=== PATIENT | male | born 1960 | race Caucasian/White ===

== ENCOUNTER 2024-07-12 12:30 | Outpatient (CLI) | payer OTHER, SELFPAY ==
--- NOTE | ~2024-07-12 | XR_ITS ---
EXAMINATION: XR shoulder RT min 2V DATE: 07/12/2024 13:08 INDICATION: Right shoulder pain. Neck pain. TECHNIQUE: 4 views of right shoulder were obtained. COMPARISON: None. FINDINGS: Alignment is normal. No fracture. Glenohumeral joint is normal. There is mild acromioclavic ular joint osteoarthritis. IMPRESSION: 1. Mild right acromioclavicular joint osteoarthritis. Reviewed, dictated and finalized at location []
--- NOTE | ~2024-07-12 | XR_ITS ---
EXAMINATION: XR cervical spine min 6V DATE: 07/12/2024 13:08 INDICATION: Neck pain. Right shoulder pain. TECHNIQUE: Six views of cervical spine were obtained. COMPARISON: Cervical spine radiographs 09/01/2013 abdomen MRI 02/13/16 FINDINGS: There is 11 degrees levoscoliosis of cervical spine. There are changes of anterior fusion p rocedure from C3 to C6 with anterior plate and screws. At C3, the screws are broken. There is moderat nicole decreased disc height at C3-C4, C6-C7, and C7-T1. There is multilevel [id number] facet join t osteoarthritis. On the right, there is moderate neural foraminal stenosis at C3-C4. There is mild c entral canal stenosis at C3-C4 and C5-C6. No prevertebral soft tissue swelling. IMPRESSION: 1. Moderate cervical spondylosis. 2. Anterior fusion procedure from C3 to C6 with broken C3 screws. 3. Cervical levoscoliosis. Reviewed, dictated and finalized at location []
--- OUTSIDE RECORDS SUMMARY | 2024-07-12 14:26 | XMS_ITS | Clinical Summary ---
Author Organization [facility] Address [address] [place] [address] Care Team Providers Care Pets Salesperson Name Role Phone Judd Lazaro MD Primary Care Provider [phone] Social History Tobacco Use Types Packs/Day Years Used Date Smoking Tobacco: Never Assessed Personal Safety Answer Date Recorded Getting School Help Needed Not on file 09/22 Sex and Gender Information Value Date Recorded Sex Assigned at Not on file Legal Sex Male 6:24 PM CORRAL BOSS Gender Identity Not on file Sexual Orientation Not on file Last Filed Vital Signs Vital Sign Reading Time Taken Comments Blood Pressure 117/87 07/01/2017 9:46 AM CDT Pulse 68 07/01/2017 9:46 AM CDT Temperature 36.3 C (97.3 F) 07/01/2017 9:46 AM CDT Respiratory Rate - - Oxygen Saturation 98% 07/01/2017 9:46 AM CDT Inhaled Oxygen Concentration - - Weight 77.1 kg (170 lb) 07/01/2017 9:46 AM CDT Height 180.3 cm (5' 11 ) 07/01/2017 9:46 AM CDT Body Mass Index 23.71 07/01/2017 9:46 AM CDT Plan of Treatment Health Maintenance Due Date Last Done Comments Colon Cancer Screening-Colonoscopy 1960 Depression Screening 1960 Hepatitis C Screening 1960 Prostate Cancer Screening-PSA 1961 Hepatitis B Screening 10/14/1979 Regular Well Visit/Exam 18-64 10/14/1979 Zoster Vaccine (1 of 2) 10/14/2011 DTaP/Tdap/Td Vaccine (2 - Td or Tdap) 10/01/2023 09/30/2013 Covid-19 Vaccine ( season) 2023 10/27/2020, 10/06/2020 Influenza Vaccine (#1) 2023 , 02/06/2020, 01/20/2019, Additional history exists Pneumococcal vaccine <65 Aged Out 12/03/2014 No longer eligible based on patient's age to complete this topic Insurance Care Teams Pets Salesperson Relationship Specialty Start Date End Date Judd Lazaro MD [address] [place] [address] PCP - General Internal Medicine 09/23/23
--- OUTSIDE RECORDS SUMMARY | 2024-07-12 14:26 | XMS_ITS | Clinical Summary ---
Author Organization [facility] Address [address] [place] [address] Care Team Providers Care Upper Marker Name Role Phone Mari Lazaro MD Primary Care Provider [phone] Source Comments [facility],non-owned Affiliates and Associated Physician Practices is amultiple site organization consisting of ambulatory clinics and hospital sitesin [place], [place], [place] and [place]. This disclosure is being madepursuant to the Care Everywhere program and may not contain all information available regarding this patient. Last updated 18.[facility] Allergies Active Allergy Reactions Criticality Noted Date Comments Diphenhydramine Urticaria Medium 07/23/2017 Contrast-Iodinated Agents Fo r Ct/Other Rash Medium Unverified allergy, mild, hives; Iodine allergy causes hives-CRISTINA CASTILLO Valproic Acid Urticaria Medium 02/16/2019 Povidone Iodine Urticaria Medium 04/21/2016 Medications * Be aware that medications may not be up to date on this document. Alwaysverify current medications with the patient. Medication Sig Dispensed Refills Start Date End Date Status acetaminophen (TYLENOL) 325 MG tablet Take 2 tablets by mouth every 4 hours as needed Maximum allowable Acetaminophen amount = 4 Grams (4000 mg) / 24 hours. 09/20/2018 Active omeprazole (PRILOSEC) 40 MG capsuleIndicatio ns:Gastroesophag eal Reflux Disease Take 1 capsule by mouth once daily Reasons: Gastroesophageal Reflux Disease 30 capsule 09/20/2018 Active latanoprost (XALATAN) 0.005 % ophthalmic solution INSTILL 1 GTT INTO OS QHS 11 09/23/2018 Active tamsulosin (Flomax) 0.4 MG capsule Take 1 (one) capsule by mouth once daily At the same time every day after a meal. 90 capsule 4 10/08/2022 Active cloNIDine (Catapres) 0.1 MG tabletIndication s:Tardive dystonia Take 1 (one) tablet by mouth 3 times daily 90 tablet 11 08/31/2023 Active propranolol ER 24hr (Inderal LA) 80 MG capsuleIndicatio ns:Tremor TAKE 1 CAPSULE BY MOUTH EVERY DAY 30 capsule 11 09/07/2023 Active amitriptyline (Elavil) 25 MG tabletIndication s:Insomnia Take 1 (one) tablet by mouth at bedtime Reasons: Trouble Sleeping 90 tablet 4 06/09/2024 Active buPROPion XL 24hr (Wellbutrin-XL) 300 MG tabletIndication s:Bipolar 1 disorder (HCC) TAKE 1 TABLET BY MOUTH EVERY DAY FOR ADHD OR MAJOR DEPRESSION 30 tablet 5 06/09/2024 Active OLANZapine (ZyPREXA) 2.5 MG tabletIndication s:Manic Phase of Bipolar Mood Disorder Take 1 (one) tablet by mouth once daily Reasons: Manic Phase of Manic-Depression 30 tablet 2 06/09/2024 Active clonazePAM (KlonoPIN) 0.5 MG tabletIndication s:Anxiety Take 1 (one) tablet by mouth 2 times daily as needed for Anxiety (please take 1 tablet as needed twice a day for anxiety.) Reasons: Feeling Anxious 60 tablet 3 06/17/2024 Active Active Problems Problem Noted Date Diagnosed Date Device, implant, or graft complication 9 Foreign body in colon 08/19/2018 Bipolar affective disorder, currently depressed, moderate 01/13/2018 Generalized anxiety disorder 11/09/2017 S/P cervical spinal fusion 10/28/2017 Esophagitis 07/24/2017 Overview (07/24/2017): Esophageal tear Chronic low back pain with sciatica 03/25/2017 Cervical spine ankylosis Dysphagia Resolved Problems Problem Noted Date Diagnosed Date Resolved Date Suicidal ideation 09/16/2018 09/22/2018 Dystonia 05/19/2018 01/03/2019 Alcohol abuse 11/09/2017 03/03/2018 Tardive dyskinesia 11/09/2017 8 Episode of recurrent major d epressive disorder 11/09/2017 01/13/2018 Cocaine use disorder, severe , in early remission 11/09/2017 06/02/2018 Chronic back pain 09/03/2017 11/09/2017 Overview (09/03/2017): Overview: DDD Neck pain 07/24/2017 11/09/2017 Esophageal tear, initial encounter 07/17/2017 10/28/2017 Stenosis of cervical spine with myelopathy 04/08/2017 10/28/2017 Pain in shoulder region, left 03/25/2017 11/09/2017 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 (F LUZONE; FLULAVAL; FLUARIX; AFLURIA QUADRIVALENT; 6MO+), 0.5 ML (IIV4) 02/06/2020,01/20/2019,01/26/2018 Family History Medical History Relation Name Comments Diabetes - Type 1 Brother 1 Hypertension Brother 1 CAD (Coronary Artery Disease) Brother 2 Julio Cancer - Other Father Liver Cirrhosis Father Diabetes - Type 2 Father Diabetes - Type 2 Mother Hypertension Mother Diabetes - Type 1 Sister 1 Relation Name Status Comments Brother 1 Brother 2 Julio Alive Father Mother Alive Sister 1 Sister 2 Livia Alive Social History Tobacco Use Types Packs/Day Years Used Date Smoking Tobacco: Never Smokeless Tobacco: Never Tobacco Cessation:Counseling Given: Not Answered Alcohol Use Standard Drinks/Week Comments Not Currently 4 (1 standard drink = 0.6 oz pure alcohol) quit 2016 ETOH abuse/heavy use beer whiskey, I had three drinks last night PHQ-2 Answer Date Recorded Patient Health Questionnaire-2 Score 0 06/09/2024 Sex and Gender Information Value Date Recorded Sex Assigned at Not on file Gender Identity Not on file Sexual Orientation Not on file Last Filed Vital Signs Vital Sign Reading Time Taken Comments Blood Pressure 94/66 06/09/2024 11:08 AM PRODUCTION CONTROL PLANNER Pulse 83 06/09/2024 11:08 AM PRODUCTION CONTROL PLANNER Temperature 36.3 C (97.3 F) 08/10/2023 1:27 PM CDT Respiratory Rate 20 05/16/2022 10:49 AM PRODUCTION CONTROL PLANNER Oxygen Saturation 99% 06/09/2024 11:08 AM PRODUCTION CONTROL PLANNER Inhaled Oxygen Concentration - - Weight 69.2 kg (152 lb 8 oz) 06/09/2024 11:08 AM PRODUCTION CONTROL PLANNER Height 180.3 cm (5' 11 ) 06/09/2024 11:08 AM PRODUCTION CONTROL PLANNER Body Mass Index 21.27 06/09/2024 11:08 AM PRODUCTION CONTROL PLANNER Plan of Treatment Health Maintenance Due Date Last Done Comments COLOGUARD (AGES 45-75) - COL ON CA SCREENING 1961 CT COLONOGRAPHY - COLON CA SCREENING 1961 FIT - COLON CA SCREENING 1961 FLEX SIG - COLON CA SCREENING 1961 HIV SCREENING 1976 DTAP/TDAP/TD VACCINES (1 - Tdap) 1980 PNEUMOCOCCAL VACCINE 50+ (1 of 1 - PCV) 10/14/2011 ZOSTER VACCINE (1 of 2) 10/14/2011 LIPID TESTING 09/19/2023 09/18/2018 COVID-19 VACCINE (1 - 2023-2 5 season) 2023 INFLUENZA VACCINE (#1) 2023 , 01/20/2019, 01/26/2018 COLON MONITORING 02/23/2029 02/23/2019, 02/23/2019 COLONOSCOPY - COLON CA SCREENING 02/23/2029 02/23/2019, 02/23/2019 Colorectal Cancer Screening 02/23/2029 Respiratory Syncytial Virus (RSV) Vaccine Pt: or over 60 yrs (1 - 1-dose 75+ series) 2036 HEPATITIS C SCREENING Completed 01/20/2019 , 01/20/2019 HEPATITIS B VACCINE Aged Out No longe r eligible based on patient's age to complete this topic HIB VACCINE Aged Out No longer eligi ble based on patient's age to complete this topic HPV VACCINE Aged Out No longer eligi ble based on patient's age to complete this topic MENINGOCOCCAL (Group B) VACCINE SHARED DECISION-MAKING Aged Out No longer eligible based on patient's age to complete this topic MENINGOCOCCAL GROUPS A/C/Y/W VACCINE Aged Out No longer eligible b ased on patient's age to complete this topic Goals Goal Patient Goal Type Associated Problems Recent Progress Patient-Stated? Author Medication Management General On track( 019 2:27 PM CDT) Elvira Lopez, RN Note: Expected end date: ongoing Interventions: Take all medications as prescribed Let your doctor know right away about any changes in your medications Make sure to request a refill of your medication at least one week prior to your last dose Medical Devices Implanted Type Area Gis Coordinator Device Identifier Shelf Expiration Date Model / Serial / Lot Tiss Kaur Srvc Fee 6.0 X 14mm X 11mm - [id number] Implanted:Qty: 1 on 10/08/2017 by Piotr Perez MD at [facility] N/A: Spine Cervical [employer] 05/18/2020 [id number] / [id number] / [id number] Tiss Kaur Srvc Fee 7.0 X 14mm X 11mm Implanted:Qty: 1 on 10/08/2017 by Piotr Perez MD at [facility] N/A: Spine Cervical [employer] [id number] / / Plate 57.5 Implanted:Qty: 1 on 10/08/2017 by Piotr Perez MD at [facility] N/A: Spine Cervical [employer] [id number] / / Screw 4mm 14mm Spne Crv Ant Va Slf Drl Implanted:Qty: 2 on 10/08/2017 by Piotr Perez MD at [facility] N/A: Spine Cervical [employer] [id number] / / Screw 4mm 16mm Spne Crv Ant Va Slf Drl Implanted:Qty: 6 on 10/08/2017 by Piotr Perez MD at [facility] N/A: Spine Cervical [employer] [id number] / / Procedures Procedure Name Priority Date/Time Associated Diagnosis Comments ENDOSCOPY, COLON, SCREENING Routine 02/23/2019 1:12 PM PRODUCTION CONTROL PLANNER HEPATITIS C ANTIBODY Routine 01/20/2019 4:15 PM CDT Encounter for immunization LIPID PROFILE Routine 09/18/2018 6:04 AM CDT from Last 3 Months or Most Recently Relevant to Health Maintenance Results * ENDOSCOPY, COLON, SCREENING (02/23/2019 1:12 PM PRODUCTION CONTROL PLANNER) Report Endoscopy POC Endoscopy Department Report __ _ Patient Name: Gustabo Bradley Procedure Date: 02/23/2019 1:12 PM Date of : 1960 Classification: Outpatient Gender: Male Ethnicity: Not or Race: White __ _ Providers: Selene Gudino MD, Deo Villatoro (Fellow) Referring MD: Rebeka Guzman (Referring MD) Procedure: Upper GI endoscopy Indications: Dysphagia Medications: Monitored Anesthesia Care Description of Procedure: Pre-Anesthesia Assessment: - Prior to the procedure, a History and Physical was performed, and patient medications and allergies were reviewed. The patient is competent. The risks and benefits of the procedure and the sedation options and risks were discussed with the patient. All questions were answered and informed consent was obtained. Patient identification and proposed procedure were verified by the physician and the nurse in the endoscopy suite. Mental Status Examination: alert and oriented. Airway Examination: normal oropharyngeal airway and neck mobility. Respiratory Examination: clear to auscultation. CV Examination: normal. Prophylactic Antibiotics: The patient does not require prophylactic antibiotics. Prior Anticoagulants: The patient has taken no previous anticoagulant or antiplatelet agents. ASA Grade Assessment: III - A patient with severe systemic disease. After reviewing the risks and benefits, the patient was deemed in satisfactory condition to undergo the procedure. The anesthesia plan was to use monitored anesthesia care (MAC). Immediately prior to administration of medications, the patient was re-assessed for adequacy to receive sedatives. The heart rate, respiratory rate, oxygen saturations, blood pressure, adequacy of pulmonary ventilation, and response to care were monitored throughout the procedure. The physical status of the patient was re-assessed after the procedure. After obtaining informed consent, the endoscope was passed under direct vision. Throughout the procedure, the patient's blood pressure, pulse, and oxygen saturations were monitored continuously. The [id number] was introduced through the mouth, and advanced to the third part of duodenum. The upper GI endoscopy was accomplished without difficulty. The patient tolerated the procedure well. Findings: Esophagogastric landmarks were identified: the Z-line was found at 35 cm, the gastroesophageal junction was found at 38 cm and the site of hiatal narrowing was found at 38 cm from the incisors. 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 The three tongues with maximum longitudinal extent of these mucosal changes was 3 cm in length. The entire examined stomach, cardia (on retroflexion) and gastric fundus (on retroflexion) were normal. The examined duodenum was normal. Estimated Blood Loss: Estimated blood loss: none. Complications: No immediate complications. Impression: 1) No focal strictures or stenosis found. Endoscope passed easily through upper esophageal sphincter. 2) Endoscope easily transversed entire esophagus, including in intubation of EUS and passing LES into stomach. 3) Esophageal mucosal changes secondary to established short-segment Powell's disease. 4) Normal duodenum, stomach, cardia and gastric fundus. 5) No specimens collected. No dilation performed. Recommendation: - Patient has a contact number available for emergencies. The signs and symptoms of potential delayed complications were discussed with the patient. Return to normal activities tomorrow. Written discharge instructions were provided to the patient. - Resume previous diet. - Continue present medications. - Return to GI clinic as previously scheduled. - Encouraged patient to complete order barium swallow Attending Participation: I was present and participated during the entire procedure, including non-shah portions. Procedure Code(s): --- Professional --- 52644, Esophagogastroduode noscopy, flexible, transoral; diagnostic, including collection of specimen(s) by brushing or washing, when performed (separate procedure) Diagnosis Code(s): --- Professional --- K22.70, Powell's esophagus without dysplasia R13.10, Dysphagia, unspecified CPT copyright 2016 [employer]. All rights reserved. The codes documented in this report are preliminary and upon aquatics director review may be revised to meet current compliance requirements. ____ Selene Gudino MD 02/23/2019 2:35:00 PM Note Initiated On: 02/23/2019 1:12 PM Number of Addenda: [address] 02/23/2019 1:12 PM PRODUCTION CONTROL PLANNER Selene Gudino MD GI PROCEDURE [facility] CASTELLANOS Performing Organization Address [facility] Co de Phone Number [facility] * HEPATITIS C ANTIBODY (01/20/2019 4:15 PM CDT) [facility] Hepatitis C Antibody Non-react leo Non-reac tive 01/20/2019 6:58 PM CDT [facility] Comment: Hepatitis C Antibody screen indicates no serologic evidence of past or current infection with Hepatitis C Virus. Patients with unexplained liver disease who are immunocompromised or suspected of having acute Hepatitis C infection may benefit from Nucleic Acid Test (AVA) for Hepatitis C Viral RNA to confirm Hepatitis C status. Blood BLOOD SPECIMEN / Unknown Lab Venipuncture / Unknown 01/20/2019 4:15 PM CDT 01/20/2019 4:29 PM CDT Spike Etienne MD LAB - CHEMISTRY [facility] CASTELLANOS Performing Organization Address City/[facility]/ZIP Co de Phone Number [address] [phone] * (ABNORMAL) LIPID PROFILE (09/18/2018 6:04 AM CDT) [facility] Cholesterol Total 180 <200 mg/dL 09/18/2018 8:29 AM CDT [facility] HDL 51 >40 mg/dL 09/18/2018 8:29 AM [facility] Comment: ATP III Classification of HDL Cholesterol: <40 mg/dL: Considered a major risk factor. >60 mg/dL: Considered a negative risk factor. LDL Calculated 110(H) <100 mg/dL 09/18/2018 8:29 AM [facility] Comment: ATP III Classification of LDL Cholesterol: <100 mg/dL: Optimal 100 - 129 mg/dL: Near Optimal/Above Optimal 130 - 159 mg/dL: Borderline High 160 - 189 mg/dL: High >190 mg/dL: Very High Triglycerides 94 <150 mg/dL 09/18/2018 8:29 AM [facility] Comment: ATP III Classification of Triglycerides: <150 mg/dL: Normal 150 - 199 mg/dL: Borderline High 200 - 400 mg/dL: High >500 mg/dL: Very High Blood BLOOD SPECIMEN / Unknown Venipuncture / Unknown 09/18/2018 6:04 AM CDT 09/18/2018 6:14 AM CDT Magali Grace MD LAB - CHEMISTRY ORDERABLES [facility] [address] [phone] from Last 3 Months or Most Recently Relevant to Health Maintenance Advance Directives Documents on File Type Date Recorded Patient Film Reproducer Expl anation Adv Directive/Living Will/POA 08/18/2017 2:52 PM * Full Code (Latest Code Status on File) Date Activated Date Inactivated Comments 09/16/2018 8:30 PM 09/20/2018 2:49 PM * Full Code Date Activated Date Inactivated Comments 10/08/2017 2:30 PM 10/20/2017 8:07 PM * Full Code Date Activated Date Inactivated Comments 07/24/2017 9:46 AM 07/28/2017 4:37 PM Care Teams Upper Marker Relationship Specialty Start Date End Date Mari Lzaaro MD [address] [place], [place] [id number] PCP - General Internal Medicine 10/20/23
--- OUTSIDE RECORDS SUMMARY | 2024-07-12 14:26 | XMS_ITS | Encounter Summary ---
Author Organization [facility] Address [address] [place] [address] Care Team Providers Care Sheetmetal Worker Name Role Phone Aye Angeles Unavailable Unavailable Umberto Nguyen MD Primary Care Provider [phone] Juanjo Dowell MD Primary Care Provider Umberto Nguyen MD Primary Care Provider [phone] Spike Etienne MD Unavailable [phone] Niyah Bush MD Primary Care Provider Umberto Nguyen MD Primary Care Provider [phone] Spike Etienne MD Primary Care Provider [phone] Spike Etienne MD Primary Care Provider [phone] Spike Etienne MD Primary Care Provider [phone] Tiffany Dennis DO Primary Care Provider [phone] Bailee DUGGAN MD, Fred R Primary Care Provider + Tiffany Dennis DO Primary Care Provider Spike Etienne MD Primary Care Provider [phone] Umberto Nguyen MD Primary Care Provider [phone] aMri Lazaro MD Primary Care Provider [phone] Encounter Details Date Type Department Care Team (Late st Contact Info) Description 08/31/2018 Lab Requisition [facility] [address] [place] [address] Sabrina Scott MD [address] [place] [address] Social History Tobacco Use Types Packs/Day Years Used Date Smoking Tobacco: Never Smokeless Tobacco: Never Alcohol Use Standard Drinks/Week Comments No 0 (1 standard drink = 0.6 oz pure alcohol) quit 2017 ETOH abuse/heavy use beer whiskey Sex and Gender Information Value Date Recorded Sex Assigned at Not on file Gender Identity Not on file Sexual Orientation Not on file documented as of this encounter Functional Status Functional Status Response Date of Assess ment Is person deaf or have serious hearing difficult y? No 10/09/2017 Is person blind or have serious difficulty seein g? Yes 10/09/2017 Does person have serious dif ficulty walking/climbing stairs? No 10/09/2017 Does person have difficulty dressing/bathing? No 10/09/2017 Does person have difficulty doing errands alone? No 10/09/2017 Cognitive Status Response Date of Assessm ent Does person have difficulty concentrating/remembering/making decisions? Yes 10/09/2017 documented as of this encounter Plan of Treatment Not on file documented as of this encounter Goals Goal Patient Goal Type Associated Problems [...] one week prior to your last dose documented as of this encounter Procedures Procedure Name Priority Date/Time Associated Diagnosis Comments SLIDE PREP HISTOLOGY Routine 08/26/2018 2:06 PM CDT documented in this encounter Results * SLIDE PREP HISTOLOGY (08/26/2018 2:06 PM CDT) Client Specimen ID # [id number] 09/07/2018 5:33 PM CDT [facility] Number of Blocks Received 0 09/07/2018 5:33 PM CDT [facility] Number of Slides 2 09/07/2018 5:33 PM CDT [facility] Number of Control Slides 1 09/07/2018 5:33 PM CDT [facility] Pathology/Cytolo gy ESOPHAGEAL BIOPSY SPECIMEN / Unknown 08/26/2018 2:06 PM CDT 08/31/2018 11:43 AM CDT Sabrina Scott MD LAB - PATHOLOGY/CYTO LOGY ORDERABLES Performing Organization Address City/State/[facility] Co de Phone Number [facility] [address] [id number] [phone] documented in this encounter Visit Diagnoses Not on filedocumented in this encounter Care Teams Sheetmetal Worker Relationship Specialty Start Date End Date Umberto Nguyen MD PCP - General 05/19/18 08/31/18 Juanjo Dowell MD [address] [place] [address] PCP - General Internal Medicine 09/01/18 09/02/18 Umberto Nguyen MD PCP - General 09/03/18 01/20/19 Niyah Bush MD [address] [place] [address] PCP - General Internal Medicine 01/22/19 01/22/19 Umberto Nguyen MD PCP - General 01/23/19 02/10/19 Spike Etienne MD [address] [place] [address] PCP - General 02/11/19 02/22/19 Spike Etienne MD [address] [place] [address] PCP - General 03/21/19 06/28/19 Spike Etienne MD [address] [place] [address] PCP - General 06/29/19 10/24/19 Tiffany Dennis DO [address] [place] [address] PCP - General 10/25/19 10/31/19 Celestino Morocho III, MD [address] [place] [address] PCP - General Internal Medicine 11/01/19 11/09/19 Tiffany Dennis DO [address] [place] [address] PCP - General 11/10/19 12/01/19 Spike Etienne MD [address] [place] [address] PCP - General 01/17/21 09/22/22 Umberto Nguyen MD [address] [place] [address] [place] [address] PCP - General Family Medicine 09/23/22 10/19/23 Mari Lazaro MD [address] [place] [id number] PCP - General Internal Medicine 10/20/23 Aye Angeles Media Analytics Manager Psychiatry 11/05/17 09/21/18 Spike Etienne MD [address] [place] [address] Resident - PCP General Medicine 01/21/19 01/08/21 documented as of this encounter
--- OUTSIDE RECORDS SUMMARY | 2024-07-12 14:26 | XMS_ITS ---
Author Organization [facility] Address [address] [facility] [address] [place] [address] Care Team Providers Care Needle Punch Machine Operator Name Role Phone Judd Lazaro Primary Care Provider [phone] Encounters Encounter Location Date Provider Diagnosis [facility] [address] [facility] [address] [place] [address] 06/28/2024 Judd Lazaro Plan Of Treatment Next Appt Details Provider Name:Judd mann, 07/21/2024 01:30:00 PM, [address] [facility], [address], [place], [address], Progress Notes * Gustabo RIVERADOB:1960 (63 yo M)Acc No.[id number]:06/28/2024 Progress Notes Patient: Gustabo CHRISTINE Provider: Umang Lazaro M.D. :1960 A ge:63 Y S ex:Male Date:06/28/2024 Address:[address] [place], [place] [id number] Subjective: * Chief Complaints: * * Medical History: Objective: * Vitals: Assessment: Plan: * Treatment: * * Electronic signature of Minerva Lazaro MD on 07/12/2024 at 03:26 PM EDT Sign off status: Pending * Provider: Umang Lazaro M.D. Date: 0 06/28/2024 Generated for Eleni king/Fadane/eTransmitting on: 0 07/12/2024 03:26 PM EDT
--- OUTSIDE RECORDS SUMMARY | 2024-07-12 14:26 | XMS_ITS | Encounter Summary ---
Author Organization [facility] Address [address] [place] [address] Care Team Providers Care Farm Products Shipper Name Role Phone Leroy Caballero MD Primary Care Provider [phone] Encounter Details Date Type Department Care Team (Latest Contact Info) Description 01/12/[address] [facility] , Carl Awad MD Social History Tobacco Use Types Packs/Day Years Used Date Smoking Tobacco: Never Assessed Sex and Gender Information Value Date Recorded Sex Assigned at Not on file Legal Sex Male 12:14 AM CDT Gender Identity Not on file Sexual Orientation Not on file documented as of this encounter Plan of Treatment Not on file documented as of this encounter Visit Diagnoses Not on filedocumented in this encounter Care Teams Farm Products Shipper Relationship Specialty Start Date End Date Leryo Caballero MD [address] [place] [address] PCP - General 11/29/15 documented as of this encounter
--- OUTSIDE RECORDS SUMMARY | 2024-07-12 14:26 | XMS_ITS | Clinical Summary ---
Author Organization [facility] Address [address] [place] [address] Care Team Providers Care Cutting And Creasing Press Operator Name Role Phone Leroy Caballero MD Primary Care Provider [phone] Encounters Date Type Department Care Team Description 07/01/2024 Scan [facility] Scanned, [facility] from Last 3 Months Social History Tobacco Use Types Packs/Day Years Used Date Smoking Tobacco: Never Assessed Sex and Gender Information Value Date Recorded Sex Assigned at Not on file Legal Sex Male 12:14 AM CDT Gender Identity Not on file Sexual Orientation Not on file Last Filed Vital Signs Vital Sign Reading Time Taken Comments Blood Pressure 125/84 06/24/2017 12:31 PM FLAKER TENDER Pulse 72 06/24/2017 12:31 PM FLAKER TENDER Temperature - - Respiratory Rate - - Oxygen Saturation - - Inhaled Oxygen Concentration - - Weight 80.3 kg (177 lb) 06/24/2017 12:31 PM FLAKER TENDER Height 181.6 cm (5' 11.5 ) 06/24/2017 12:[address] Body Mass Index 24.34 06/24/2017 12:31 PM FLAKER TENDER Plan of Treatment Health Maintenance Due Date Last Done Comments Colorectal Cancer Screening Colonoscopy (10 Years) 1960 Annual Physical 1964 Hepatitis C 10/14/1979 DTaP, Tdap and Td Vaccines ( 1 - Tdap) 1980 Zoster Vaccines (1 of 2) 10/14/2011 COVID-19 Vaccine ( - 2023-2 5 season) 2023 Influenza Adult (#1) 2024 RSV Immunization or 60+ Years (1 - 1-dose 75+ series) 2036 Meningococcal B Vaccine Aged Out No l onger eligible based on patient's age to complete this topic Meningococcal Vaccine Aged Out No jhonny stephani eligible based on patient's age to complete this topic Pneumococcal Vaccine: Pediat rics (0 to 5 Years) and At-Risk Patients (6 to 64 Years) Aged Out No longer eligible b ased on patient's age to complete this topic RSV Immunizations Under 20 Months Aged Out No longer eligible based on patient's age to complete this topic Care Teams Cutting And Creasing Press Operator Relationship Specialty Start Date End Date Leroy Caballero MD [address] [place] [address] PCP - General 11/29/15
--- OUTSIDE RECORDS SUMMARY | 2024-07-12 14:26 | XMS_ITS ---
Author Organization [facility] Address [address] [address] Care Team Providers Care Art Museum Aide Name Role Phone Judd Lazaro Primary Care Provider Medications Medication SIG (Take, Route, Frequency, Duration) Notes Start Date End Date Status HYDROcodone-Acetaminophen 5-325 MG 1 tablet Orally every 8 hrs for 14 days As needed 07/07/2024 Active Encounters Encounter Location Date Provider Diagnosis [facility] [address] [facility] [address] [place] [address] 07/07/2024 Judd Lazaro Plan Of Treatment Medication Medication Name Sig Start Date Stop Date Notes HYDROcodone-Acetaminophen 5- 325 MG 1 tablet Orally every 8 hrs for 14 days 07/07/2024 Next Appt Details Provider Name:Judd mann, 07/21/2024 01:30:00 PM, [address] [facility] [address], [place], [address], Progress Notes * Gustabo RIVERADOB:1960 (63 yo M)Acc No.[id number]:07/07/2024 Patient: Gustabo CHRISTINE :1960 A ge:63 Y S ex:Male Address:[address] [place] [address], [address] * Refills Refill HYDROcodone-Acetaminophen Tablet, 5-325 MG, Orally, 42 Tablet, 1 tablet, every 8 hrs, 14 days, Refills=0 * true * Date: Generated for Sarahi ng/Faxing/eTransmitting on: 0 07/12/2024 03:26 PM EDT
--- OUTSIDE RECORDS SUMMARY | 2024-07-12 14:26 | XMS_ITS | Continuity of Care Document ---
Author Organization [facility] Address [address] [facility] [place] [address] Phone Care Team Providers Care School Health Assistant Name Role Phone Umberto Nguyen MD Unavailable Unavailable Allergies, Adverse Reactions, Alerts Substance Reaction Status Criticality IODINE Active No Information Medications Medication Instructions Dosage Effective Dates (start - stop) Status Comments Depakote ER 500 mg tablet,extended release take 1 tablet by oral route every day 500 MG - Active clonidine HCl 0.1 mg tablet take 1 tablet by oral route 2 times every day 0.1 MG - Active propranolol 20 mg tablet take 1 tablet by oral route 2 times every day 20 MG - Active Klonopin 1 mg tablet take 1 tablet by or al route 2 times every day 1 MG - Active Procedures Procedure Date OFFICE/OUTPATIENT VISIT, EST PREV VISIT, EST, AGE 40-64 OFFICE/OUTPATIENT VISIT, EST OFFICE/OUTPATIENT VISIT, EST OFFICE/OUTPATIENT VISIT, EST OFFICE/OUTPATIENT VISIT, EST OFFICE/OUTPATIENT VISIT, EST PREV VISIT, EST, AGE 40-64 OFFICE/OUTPATIENT VISIT, EST OFFICE/OUTPATIENT VISIT, EST OFFICE/OUTPATIENT VISIT, EST OFFICE/OUTPATIENT VISIT, EST OFFICE/OUTPATIENT VISIT, EST OFFICE/OUTPATIENT VISIT, EST OFFICE/OUTPATIENT VISIT, EST OFFICE/OUTPATIENT VISIT, EST PREV VISIT, NEW, AGE 40-64 Advance Directives Directive Yes / No Effective Date File Name No Information Encounters Encounter Description Practice Location Reason(s) For Visit Diagnoses Date Provider Providers Copied on Encounter [facility], [address], [place], [place], [address], tel:[phone] [facility] No Information 9 Patrick Shipman. [address], [place], [place], [address] , [place]. tel:[phone] Referring Provider: Abbi Garcia [address], [place], [place], [address]. tel:[phone] OFFICE/OUTPA TIENT VISIT, EST [facility], [address], [place], [place], [address], [place] tel:[phone] [facility] hyponatrem ia1 (chief complaint) weight loss1 (chief complaint) back pain1 (chief complaint) BPH1 (chief complaint) HyponatremiaBPH w/ lower urinary tract symptomAbnormal weight lossChronic pain syndrome 9 Patrick Shipman. [address], [place], [place], [address] , [place]. tel:[phone] Referring Provider: Abbi Garcia [address], [place], [place], [address]. tel:[phone] [facility], [address], [place], [place], [address], [place] tel:[phone] [facility] No Information 9 Patrick Shipman. [address], [place], [place], [address] , [place]. tel:[phone] PREV VISIT, EST, AGE 40-64 [facility], [address], [place], [place], [address], [place] tel:[phone] [facility] physical (chief complaint) Encounter for general adult medical exam w abnormal findingsHyponatremi aHyperlipidemiaEsse ntial thrombocytosisTardi ve dyskinesiaBarrett's esophagus without dysplasiaAbnormal weight loss Fe- 9 Patrick Laird [address], [address], [place], [place], [address] , [place]. tel:[phone] Referring Provider: Abbi [address], [place], [place], [address]. tel:[phone] OFFICE/OUTPA TIENT VISIT, [facility], [address], [place], [place], [address], [place] tel:[phone] [facility] urine (chief complaint) urine1 (chief complaint) ear pain1 (chief complaint) insomnia1 (chief complaint) Otalgia, right earInsomniaBPH w/ lower urinary tract symptomAnemia 9 Patrick Laird [address], [address], [place], [place], [address] , [place]. tel:[phone] Referring Provider: Abbi Garcia [address], [place], [place], [address]. tel:[phone] OFFICE/OUTPA TIENT VISIT, [facility], [address], [place], [place], [address], [place] tel:[phone] [facility] insomani1 (chief complaint) chronic pain1 (chief complaint) barrett1 (chief complaint) tardive dyskinesia 1 (chief complaint) Townsend's esophagusGeneralize d anxiety disorderInsomniaAbn ormal weight lossChronic pain syndrome 8 Patrick Laird [address], [address], [place], [place], [address] , [place]. tel:[phone] Referring Provider: Abbi Garcia [address], [place], [place], [address]. tel:[phone] OFFICE/OUTPA TIENT VISIT, [facility], [address], [place], [place], [address], [place] tel:[phone] [facility] insomnia1 (chief complaint) GERD1 (chief complaint) Other insomniaBarrett's esophagus 5 Patrick Laird [address], [address], [place], [place], [address] , [place]. tel:[phone] Referring Provider: Umberto Nguyen, [address], [place], [place], [address]. tel:[phone] OFFICE/OUTPA TIENT VISIT, [facility], [address], [place], [place], [address], [place] tel:[phone] [facility] fatigue1 (chief complaint) GERD1 (chief complaint) Dietary surveillance and counselingFatigueOt her insomniaGERD with esophagitis 5 Patrick Shipman. [address], [address], [place], [place], [address] , [place]. [phone] Referring Provider: Abbi Garcia [address], [place], [place], [address]. tel:[phone] PREV VISIT, [facility], AGE 40-64 [facility], [address], [place], [place], [address], [place] tel:[phone] [facility] Physical (chief complaint) Dietary surveillance and counselingRoutine medical exam 5 Patrick Shipman. [address], [address], [place], [place], [address] , [place]. [phone] Referring Provider: Umberto Nguyen [address], [place], [place], [address]. tel:[phone] OFFICE/OUTPA TIENT VISIT, [facility], [address], [place], [place], [address], [place] tel:[phone] [facility] chronic pain (chief complaint) ADD (chief complaint) anxiety (chief complaint) GERD (chief complaint) CHRONIC PAIN NECGeneralized anxiety disorderAttention deficit disorder of childhood without mention of hyperactivityGERD 4 Patrick Shipman. [address], [address], [place], [place], [address] , [place]. tel:[phone] Referring Provider: Umberto Nguyen [address], [place], [place], [address]. tel:[phone] OFFICE/OUTPA TIENT VISIT, [facility], [address], [place], [place], [address], [place] tel:[phone] [facility] chronic pain (chief complaint) ADD (chief complaint) Anxiety (chief complaint) CHRONIC PAIN NECAttention deficit disorder of childhood without mention of hyperactivityGenera lized anxiety disorder 4 Patrick Shipman. [address], [place], [place], [address] , [place]. tel:[phone] Referring Provider: Umberto Nguyen, [address], [place], [place], [address]. tel:[phone] OFFICE/OUTPA TIENT VISIT, [facility], [address], [place], [place], [address], [place] tel:[phone] [facility] anxiety (chief complaint) ADD (chief complaint) chronic pain (chief complaint) CHRONIC PAIN NECGeneralized anxiety disorderAttention deficit disorder of childhood without mention of hyperactivityFamily Hx of Cardiovascular Disease 4 Patrick Shipman. [address], [place], [place], [address] , [place]. tel:[phone] Referring Provider: Abbi [address], [place], [place], [address]. tel:[phone] OFFICE/OUTPA TIENT VISIT, [facility], [address], [place], [place], [address], [place] tel:[phone] [facility] chornic pain (chief complaint) Anxiety (chief complaint) rash (chief complaint) Generalized anxiety disorderAttention deficit disorder of childhood without mention of hyperactivityLumbag oFamily Hx of Cardiovascular Disease 4 Patrick Shipman. [address], [place], [place], [address] , [place]. tel:[phone] Referring Provider: Abbi Garcia [address], [place], [place], [address]. tel:[phone] OFFICE/OUTPA TIENT VISIT, [facility], [address], [place], [place], [address], [place] tel:[phone] [facility] back pain (chief complaint) anxiety (chief complaint) ADD (chief complaint) CHRONIC PAIN NECAttention deficit disorder of childhood without mention of hyperactivityGenera lized anxiety disorder 4 Patrick Shipman. [address], [place], [place], [address] , [place]. tel:[phone] Referring Provider: Abbi Garcia [address], [place], [place], [address]. tel:[phone] OFFICE/OUTPA TIENT VISIT, [facility], [address], [place], [place], [address], [place] tel:[phone] [facility] chronic pain (chief complaint) anxiety (chief complaint) ADD (chief complaint) Attention deficit disorder of childhood without mention of hyperactivityCervic algiaLumbagoDepress ion 4 Patrick Shipman. [address], [place], [place], [address] , [place]. tel:[phone] Referring Provider: Abbi Garcia [address], [place], [place], [address]. tel:[phone] OFFICE/OUTPA TIENT VISIT, [facility], [address], [place], [place], [address], [place] tel:[phone] [facility] back pain (chief complaint) ADD (chief complaint) foot pain (chief complaint) Dietary surveillance and counselingLumbagoCe rvicalgiaAttention deficit disorder of childhood without mention of hyperactivityChroni c ulcer of unspecified site 4 Patrick Shipman. [address], [address], [place], [place], [address] , [place]. tel:[phone] Referring Provider: Abbi [address], [place], [place], [address]. tel:[phone] OFFICE/OUTPA TIENT VISIT, [facility], [address], [place], [place], [address], [place] tel:[phone] [facility] neck pain (chief complaint) vitamin D (chief complaint) finger injury (chief complaint) ADD (chief complaint) CHRONIC PAIN NECFINGER INJURY OP NOSUnspecified vitamin d deficiencyGeneraliz ed anxiety disorder 4 Patrick Shipman. [address], [address], [place], [place], [address] , [place]. tel:[phone] Referring Provider: Umberto Nguyen, [address], [place], [place], [address]. tel:[phone] PREV VISIT, NEW, AGE 40-64 [facility], [address], [place], [place], [address], [place] tel:[phone] [facility] Physical (chief complaint) Routine Medical ExamRoutine Medical Exam 4 Patirck Shipman. [address], [address], [place], [place], [address] , [place]. tel:[phone] Family History Family Member Type Diagnosis Age At Onset Mother Problem (finding) Diabetes mellitus Mother Problem (finding) Hypertension Father Problem (finding) Coronary artery disease Father Problem (finding) Cancer, liver Brother Problem (finding) Coronary artery disease Payers Payer name Insurance type Covered libertarian ID Authoriza tion(s) No Information Social History Type Description Quantity Date Captured Comments Alcohol Use Details Unknown Caffeine Use Details Unknown Tobacco Use Status No Information Smoking Status No Information Sex Male Chief Complaint And Reason For Visit No Information Plan Of Treatment Date Type Action Status Referral Ordered: CT ABDOMEN&PELVIS W/CONTRAST ordered Referral Ordered: [facility] : Surgery (related to BPH w/ lower urinary tract symptom) ordered Referral Ordered: Otolaryngology (related to Otalgia, right ear) ordered Referral Referred To: [facility] [address] [place], [place], [phone] Ordered: Referrals: Allopathic & Osteopathic Physicians : Surgery. [facility]. Evaluate and treat ordered Referral Ordered: Referrals: Otolaryngology. Evaluate and treat ordered Referral Ordered: Pulmonology (related to Fatigue) ordered Referral Ordered: Referrals: Pulmonology. Evaluate and treat ordered Referral Ordered: Pain Management (related to Cervicalgia) ordered Referral Ordered: Referral: Pain Management. ordered Referral Ordered: CARDIOVASCULAR STRESS TEST ordered Referral Referred To: Physical Therapy Ordered: Referral: Physical Therapy. ordered Referral Ordered: COLONOSCOPY AND BIOPSY ordered Referral Ordered: Neurosurgery (related to CHRONIC PAIN NEC) ordered Referral Ordered: Referral: Neurosurgery. ordered Referral Ordered: FINGER XRAY ordered Referral Ordered: MRI LUMBAR SPINE W/O DYE ordered History Of Present Illness Encounter Date Complaint History Of Prese nt Illness BPH1 Pt did have some urinary difficulty which resolved since stopping trileptal. Pt did see urology recently and he supposes to get green light TURP but he canceled the surgery and he does not want surgery anymore back pain1 Pt has chronic b ack and neck pain Pt was seeing [facility] and he was getting norco and [facility] told him they do not give out norco anymore. Pt wants me to give him norco. Pt denies any loss of bladder control weight loss1 Pt has hiatal he rnia and he lost good amount of weight. Pt had benign CT of chest, abdomen and pelvis. Pt denies any GERD Pt denies any appetite loss. hyponatremia1 Pt has hyponatre natty. which is due to trileptal. pt just seen his psychiatrist and trileptal was stopped and he was started on depakote instead. Pt denies any headache or mental status change physical Pt needs annual physical. Pt has tardive dyskinesia from history of anti psychotic use. . Pt is off above meds. Pt just had lab done which showed low D, low sodium, high platelet and mild HLP. Pt was told by psychiatrist not to take amitriptyline due to side effects so he stopped taking amitriptyline. Pt denies any headache or mental status change or seizure. Pt has chronic anxiety and bipolar .Pt takes trileptal and also klonopin PRn by psychiatrist. Pt also takes propranolol for tardive dyskinesia. Pt is off norco. urine Additional infor matrock: Pt states that he has history of anemia. Pt denies any dizziness.. urine1 Pt c/o difficult y with urination for 2 months. pt has to push really hard to go. Pt denies any dysuria, urgency. Pt states that he has to get up 2-3 times at night to urinate but he has difficulty initiating urination insomnia1 Pt has insomnia. Pt takes amitriptyline and doing well. Pt wants to try higher dose. ear pain1 Pt states that karen de la cruz has a hole in his right eardrum since he was teenager. Pt states that he notices some pain right ear. Pt denies any hearing loss. Pt states that he can notices air from right ear when he blows his nose Pt denies any drainage barrett1 Pt has history o f townsend esophagus Pt has not followed up with GI for long time. he has not been taking any omeprazole for long time. Pt denies any GERD or abdominal pain pt also has been taking mobic for neck pain chronic pain1 Pt has chronic n avi pain. Pt recently had neck surgery and he is taking norco daily for pain from his neurosurgeon. Pt denies any radiculopathy. he also takes mobic daily insomani1 Pt has chronic i nsomnia. Pt denies any snoring or any trouble with breathing at night. Pt used to take amitriptyline which worked well for him. He wants to get some refills. tardive dyskinesia1 Pt has tardi ve dyskinesia from history of anti psychotic medication. Pt is seeing psychiatrist now. Pt is off SSRIs also. pt is only taking klonopin PRn from psychiatrist. Pt denies any suicidal or homicidal thought. Pt denies any crying spells GERD1 doing ok with om erpzole. EGD soon. insomnia1 Pt has insomnia. Pt states that vistaril did not work Pt lies in bed for hours before falling asleep. Pt has not set up sleep study yet. Pt also sleeps for 12 hours every day. Pt usually wakes up around noon. GERD1 Pt has GERD and loraine esophagus. Pt doing better with omerpzole. Pt has appointment with Dr. Santos 03/30/15. fatigue1 Pt has chronic f atigue and he has no motivation at all. Pt denies any SOB or chest pain. Pt denies SOB. Pt states that he has insomnia. Pt does not snore but he feels very tired in the morning also. Pt denies feeling unable to catch his breath at night. Physical Pt needs annual physical. Pt recently had lab which showed anemia, hypothyroidism and mildly elevated glucose and low T. Pt feels fatigue all the time. Pt is seeing pain managment for chronic back pain. Pt also has ? loraine esophagus and he is on pepcide now. Pt is kind of coufused about his medical care. Pt c/o daily heartburn despite on pepcid. Pt denies any abd pain. Pt denies any snoring at night. Pt denies any diffulcty catching his breath at night Instructions Date Instruction Additional Infor mation Increase physical activity Relat ed to Hyponatremia Increase physical activity Relat ed to Encounter for general adult medical exam w abnormal findings Increase physical activity Relat ed to Otalgia, right ear Increase physical activity Relat ed to Townsend's esophagus Prescribed Activity and Exercise Education Related to Dietary Surveillance and Counseling Prescribed Diet Educ ation/Lifestyle Education Regarding Diet Related to Dietary Surveillance and Counseling Prescribed Diet Educ ation/Lifestyle Education Regarding Diet Related to Dietary Surveillance and Counseling Prescribed Activity and Exercise Education Related to Dietary Surveillance and Counseling Dietary counseling Related to Di etary surveillance counseling Decrease caloric intake Related to Dietary surveillance counseling Assessments Type Assessment Date No Information
--- OUTSIDE RECORDS SUMMARY | 2024-07-12 14:26 | XMS_ITS | Encounter Summary ---
Author Organization [facility] Address [address] [facility] [place] [address] Care Team Providers Care Brokerage Manager Name Role Phone Spike Etienne MD Unavailable [phone] Umberto Nguyen MD Primary Care Provider [phone] Spike Etienne MD Primary Care Provider [phone] Spike Etienne MD Primary Care Provider [phone] Spike Etienne MD Primary Care Provider [phone] Tiffany Dennis DO Primary Care Provider [phone] Bailee DUGGAN MD, Fred R Primary Care Provider + Tiffany Dennis DO Primary Care Provider [phone] Spike Etienne MD Primary Care Provider [phone] Umberto Nguyen MD Primary Care Provider [phone] Mari Lazaro MD Primary Care Provider [phone] Reason for Visit * Reason Onset Date Comments Order 01/26/2019 ordered colonosc opy, TTG and anti endomysial IgA lab Medication Issue 01/26/2019 ferrous sulfate 325 (65 FE) MG 1 tab daily Encounter Details Date Type Department Care Team (Late st Contact Info) Description 01/26/2019 Telephone [facility] [address] [place], [place] [id number] Umberto Nguyen MD [address] [place] [address] Order (ordered colonoscopy, TTG and anti endomysial IgA lab); Medication Issue (ferrous sulfate 325 (65 FE) MG 1 tab daily) Social History Tobacco Use Types Packs/Day Years Used Date Smoking Tobacco: Never Smokeless Tobacco: Never Alcohol Use Standard Drinks/Week Comments Not Currently 4 (1 standard drink = 0.6 oz pure alcohol) quit 2017 ETOH abuse/heavy use beer whiskey, I had three drinks last night Sex and Gender Information Value Date Recorded Sex Assigned at Not on file Gender Identity Not on file Sexual Orientation Not on file documented as of this encounter Functional Status Functional Status Response Date of Assess ment Is person deaf or have krishan us hearing difficulty? No 09/16/2018 Is person blind or have seri ous difficulty seeing? No-Vision Impairment to L Eye 09/16/2018 Does person have serious dif ficulty walking/climbing stairs? No 09/16/2018 Does person have difficulty dressing/bathing? No 09/16/2018 Does person have difficulty doing errands alone? No 09/16/2018 Cognitive Status Response Date of Assessm ent Does person have difficulty concentrating/remembering/making decisions? No 09/16/2018 documented as of this encounter Miscellaneous Notes * Telephone Encounter - Spike Etienne MD - 01/30/2019 3:31 PM CDT I called Mr. Bradley and informed him about his iron panel result and the new prescription ferrous sulfate tablets 325mg- 1 tab daily for 3 months. I also informed him that he has a colonoscopy to be scheduled, and new to do labs : TTG and anti endomysial IgA that weresent to quest. * Telephone Encounter - Maddie Devine RN - 01/26/2019 2:52 PM CDT Patient calling and would like to order a stress test [id number] documented in this encounter Plan of Treatment Not on file documented as of this encounter Goals Goal Patient Goal Type Associated Problems Recent Progress Patient-Stated? Author Medication Management General On track( 019 2:27 PM CDT) Elvira Lopez RN Note: Expected end date: ongoing Interventions: Take all medications as prescribed Let your doctor know right away about any changes in your medications Make sure to request a refill of your medication at least one week prior to your last dose documented as of this encounter Visit Diagnoses Not on filedocumented in this encounter Care Teams Brokerage Manager Relationship Specialty Start Date End Date Umberto Nguyen MD PCP - General 01/23/19 02/10/19 Spike Etienne MD PCP - General 02/11/19 02/22/19 Spike Etienne MD PCP - General 03/21/19 06/28/19 Spike Etienne MD PCP - General 06/29/19 10/24/19 Tiffany Dennis DO [address] [place] [address] PCP - General 10/25/19 10/31/19 Celestino Morocho III, MD [address] [place] [address] PCP - General Internal Medicine 11/01/19 11/09/19 Tiffany Dennis DO [address] [place] [address] PCP - General 11/10/19 12/01/19 Spike Etienne MD PCP - General 01/17/21 09/22/22 Umberto Nguyen MD [address] [place] [address] PCP - General Family Medicine 09/23/22 10/19/23 Mari Lazaro MD [address] [place], [place] [id number] PCP - General Internal Medicine 10/20/23 Spike Etienne MD Resident - PCP General Medicine 01/21/19 01/08/21 documented as of this encounter
--- OUTSIDE RECORDS SUMMARY | 2024-07-12 14:26 | XMS_ITS | Encounter Summary ---
Author Organization [facility] Address [address] [place] [id number] Care Team Providers Care Algologist Name Role Phone Leroy Caballero MD Primary Care Provider [phone] Encounter Details Date Type Department Care Team (Latest Contact Info) Description 07/01/2024 Scan [facility] Scanned, Doc Med [facility] Social History Tobacco Use Types Packs/Day Years [...] on filedocumented in this encounter Care Teams Algologist Relationship Specialty Start Date End Date Leroy Caballero MD [address] [place] [address] PCP - General 11/29/15 documented as of this encounter
--- OUTSIDE RECORDS SUMMARY | 2024-07-12 14:26 | XMS_ITS | Referral Summary ---
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
--- OUTSIDE RECORDS SUMMARY | 2024-07-12 14:26 | XMS_ITS | Encounter Summary ---
Author Organization [facility] Address [address] [facility] [place] [address] Care Team Providers Care Fashion Illustrator Name Role Phone Aye Angeles Unavailable Unavailable Leroy Caballero MD Primary Care Provider [phone] Umberto Nguyen MD Primary Care Provider [phone] Juanjo Dowell MD Primary Care Provider [phone] Umberto Nguyen MD Primary Care Provider [phone] Spike Etienne MD Unavailable [phone] Niyah Bush MD Primary Care Provider Umberto Nguyen MD Primary Care Provider [phone] Spike Etienne MD Primary Care Provider [phone] Spike Etienne MD Primary Care Provider [phone] Spike Etienne MD Primary Care Provider [phone] Tiffany Dennis DO Primary Care Provider [phone] Bailee DUGGAN MD, Fred R Primary Care Provider + Tiffany Dennis DO Primary Care Provider [phone] Spike Etienne MD Primary Care Provider [phone] Umberto Nguyen MD Primary Care Provider [phone] Mari Lazaro MD Primary Care Provider [phone] Encounter Details Date Type Department Care Team (Late st Contact Info) Description 04/26/2018 Testing Visit [facility] [address] [place] [address] Juana Johansen, EVISCERATOR [address] [facility] [address] [facility] [place] [address] Social History Tobacco Use Types Packs/Day Years Used Date Smoking Tobacco: Never Smokeless Tobacco: Never Alcohol Use Standard Drinks/Week Comments No 0 (1 standard drink = 0.6 oz pure alcohol) quit 2 years ago ETOH abuse prior to this drank beer Sex and Gender Information Value Date Recorded [...] Yes 10/09/2017 documented as of this encounter Progress Notes * Juana Deleon, EVISCERATOR - 04/26/2018 11:14 AM CST Speech Language/Pathology Speech Therapy Modified Barium Swallow [id number] Date of : 1960 Age: 57 y.o. Referring Physician: Dr. Perez Diagnosis: Patient Active Problem List: Esophagitis Chronic low back pain with sciatica Tremor Cervical spine ankylosis S/P cervical spinal fusion Cocaine use disorder, severe, in early remission Bipolar affective disorder, currently depressed, moderate Past Medical History: Diagnosis Date ??? Alcoholism ??? Anemia ??? Anxiety ??? Arthritis ??? Cervical myelopathy ??? Depression ??? Esophageal tear ??? Esophagitis ??? GERD (gastroesophageal reflux disease) ??? Legally blind 1974 left eye ??? Pain back/ left shoulder chronic ??? Sciatica ??? Tardive dystonia ??? Ulcer of esophagus with bleeding Subjective: Gustabo Bradley is a 57 y.o. male with history of esophageal perforation s/p repairin June 2017 and ACDF levels C3/4, C5/6 in September 2017 with dysphagia to solids. He reports if he eats textures which are grainy or granular (peas, corn, lettuce, ground beef), they will get stuck in his throat and he will cough them back up. He avoids these foods. He denies problems swallowing liquids or pills. His taste is good. He denies taste changes, recent chest infections, unintentional weight loss or pain with swallowing. FOIS: 6, Total oral diet with multiple consistences without special preparation, but with specific food limitations Weight: Wt Readings from Last 3 Encounters: 03/30/18 70.8 kg (156 lb) 03/03/18 71.5 kg (157 lb 9.6 oz) 01/28/18 70.8 kg (156 lb) Height: Ht Readings from Last 3 Encounters: 03/30/18 1.803 m (5' 11 ) 03/03/18 1.803 m (5' 11 ) 01/28/18 1.803 m (5' 11 ) PMH: Pulmonary status: WNL Pulmonary history: None reported Neurological history: None reported Esophageal history: GERD, esophageal perforation Systemic/metabolic history: None reported Cancer-related history: None reported Surgical procedures: ACDF Clinical Observations and Exam Cognitive/Mental Status: Patient appears alert, oriented with no cognitive impairments that will interfere with therapy intervention. Ambulatory status: Fully ambulatory Cranial nerve function: CN V, VII, IX, X, and XII were judged as within normal limits for swallowing function. Voice is hoarse. MODIFIED BARIUM SWALLOW STUDY: Procedure: This procedure was performed in conjunction with radiology using lateral and [id number] views. The patient was given the following items in the lateral view: Varibar thin liquid barium (1 cc, 3 cc, 20 cc, consecutive drinking task), nectar thick liquid barium by sip, pudding by teaspoon. AP screen was performed with 20cc E-Z Paque Liquid Barium Sulfate Suspension (60% w/v) and 13mm barium tablet. Oral Stage: Oral transit is characterized by adequate oral containment with complete lingua-velar valving. Lingua-palatal stripping and tongue base retraction is complete. Pharyngeal Stage: Pharyngeal response is at the pyriform sinuses. Pharyngeal clearance is incomplete, consistent with mild vallecular and pyriform sinus residue, which reduces to trace residue with asecondary swallow across thin and nectar thick liquids. With pudding, there is mild vallecular and pyriform sinus residue as well as moderate posterior pharyngeal wall residue. Posterior pharyngeal wave is reduced and the epiglottis does not invert due to inadequate area for retroflexion due to posterior pharyngeal wall thickening related to the cervical hardware. In AP view, lateral pharyngeal constriction is symmetrical but reduced. Airway protection is incomplete due to partial approximation of the arytenoids to the epiglottic petiole. This results in moderate depth penetration during the swallow with thin and nectar liquids (PAS 3, Material enters the airway, remains above the vocal folds, and is not ejected from the airway). There is silent aspiration which occurred with multiple consecutive sips of thin liquid (PAS 8, material enters the airway, passes below the vocal folds and no effort is made to eject). Of note, there is cervical hardware present from C3-C6. Esophageal Stage: PES is appears patent. 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 AP screen revealed slow transit through esophagus and retention of th 13 mm barium tablet at the LES. Impressions: Gustabo Bradley presents with oropharyngeal dysphagia, with concern for esophagealdysphagia. He demonstrates reduced efficiency of swallow due to incomplete epiglottic inversion andpharyngeal constriction, which are likely secondary to presence of cervical hardware. There is reduced safety of swallow which results from delayed and incomplete airway closure resulting in penetration with thin and nectar thick liquids and silent aspiration with multiple consecutive sips of thin liquid. 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 Of note, AP screen revealed slowtransit through esophagus and retention of th 13 mm barium tablet at the LES. Results and recommendations from this evaluation were reviewed with [facility] patient. I recommend patient observe an esophageal diet with thin liquids. There is no significant pharyngeal dysfunction which relates with patients complaint found on this study. Given abnormal esophageal screen, he would likely benefit from referral to GI to further evaluate. Patient demonstrated fair understanding ofinstructions given. Informed Consent to Treatment: Plan of care including recommended therapy, goals and frequency, as well as potential risks and benefits of treatment/assessment explained to the patient who understands and agrees to proceed. Patient was instructed regarding the above techniques, recommendations and plan of care and verbalized understanding. I discussed and reviewed findings with Dr. Issa. Guidelines were posted (inpatient only): n/a Goals: Short Term Goal(s): Patient to receive instruction in compensatory swallowing strategies and/or recommendations and verbalize understanding. Fpc Goal(s): Patient to tolerate least restrictive diet without complications. Plan: Recommend referral to GI for further evaluation. Consider esophageal diet: Small frequent meals Soft/moist solids Avoid dry/dense/string textures Alternate liquids and solids Flush medications carefully to avoid pill induced esophagitis Swallow strategy: Drink one sip at a time and avoid drinking rapidly. Careful ISRAEL precautions. Oral hygiene at least twice each day. Juana Deleon MA, CCC-EVISCERATOR Speech Language Pathologist Department of Otolaryngology- Head and Neck Surgery TIC TOY INVENTOR documented in this encounter Plan of Treatment Not on file documented as of this encounter Visit Diagnoses Not on filedocumented in this encounter Care Teams Fashion Illustrator Relationship Specialty Start Date End Date Leroy Caballero MD PCP - General 11/17/17 05/18/18 Umberto Nguyen MD PCP - General 05/19/18 08/31/18 Juanjo Dowell MD [address] [place] [address] PCP - General Internal Medicine 09/01/18 09/02/18 Umberto Nguyen MD PCP - General 09/03/18 01/20/19 Niyah Bush MD [address] [place] [address] PCP - General Internal Medicine 01/22/19 01/22/19 Umberto Nguyen MD PCP - General 01/23/19 02/10/19 Spike Etienne MD [address] [place] [address] PCP - General 02/11/19 02/22/19 Spike Etienne MD [address] [place] [address] PCP - General 03/21/19 06/28/19 Spike Etienne MD [address] [place] [address] PCP - General 06/29/19 10/24/19 Tiffany Dennis DO [address] [place] [address] PCP - General 10/25/19 10/31/19 Celestino Morocho III, MD [address] [place] [address] PCP - General Internal Medicine 11/01/19 11/09/19 Tiffany Dennis DO [address] [place] [address] PCP - General 11/10/19 12/01/19 Spike Etienne MD [address] [place] [address] PCP - General 01/17/21 09/22/22 Umberto Nguyen MD [address] [place] [address] PCP - General Family Medicine 09/23/22 10/19/23 Mari Lazaro MD [address] [facility] [address] [address] [place] [id number] PCP - General Internal Medicine 10/20/23 Aye Angeles Bundle Shaker Psychiatry 11/05/17 09/21/18 Spike Etienne MD [address] [place] [address] Resident - PCP General Medicine 01/21/19 01/08/21 documented as of this encounter
== END 2024-07-12 12:31 | disposition home or self-care (01) ==
PROVIDERS: PCP Internal Medicine; Visit Provider Internal Medicine
DX: M19.011 Primary osteoarthritis, right shoulder (principal); M47.892 Other spondylosis, cervical region; Z98.1 Arthrodesis status
CPT/HCPCS: 72052; 73030

== ENCOUNTER 2024-09-06 00:37 | Day surgery (SDC) | payer OTHER, SELFPAY ==
[2024-08-29 12:46] VITALS: BMI 20.6
--- OUTSIDE RECORDS SUMMARY | 2024-09-06 00:39 | XMS_ITS | Clinical Summary ---
Author Organization [facility] Address [address] [facility] [place] [address] Care Team Providers Care Machine Brusher Name Role Phone Mari Lazaro MD Primary Care Provider [phone] Source Comments [facility],non-owned Affiliates and Associated Physician Practices is amultiple site organization consisting of ambulatory clinics and hospital sitesin [place], [place], [place] and [place]. This disclosure is being madepursuant to the Care Everywhere program and may not contain all information available regarding this patient. Last updated 18.[facility] Allergies Active Allergy Reactions Criticality Noted Date Comments Diphenhydramine Urticaria Medium 07/23/2017 Contrast-Iodinated Agents Fo r Ct/Other Rash Medium Unverified allergy, mild, hives; Iodine allergy causes hives-CRISTINA CASTILLO Valproic Acid Urticaria Medium 02/16/2019 Povidone Iodine Urticaria Medium 04/21/2016 Medications * This document contains information received from the source organization and may not represent a complete record from that organization. * Be aware that medications may not be up to date on this document. Alwaysverify current medications with the patient. acetaminophen (TYLENOL) 325 MG tablet Take 2 tablets by mouth every 4 hours as needed Maximum allowable Acetaminophen amount = 4 Grams (4000 mg) / 24 hours. 09/21/19 19 Active omeprazole (PRILOSEC) 40 MG capsuleIndicat ions:Gastroeso phageal Reflux Disease Take 1 capsule by mouth once daily Reasons: Gastroesophageal Reflux Disease 30 capsule 09/21/19 19 Active latanoprost (XALATAN) 0.005 % ophthalmic solution INSTILL 1 GTT INTO OS QHS 11 09/24/19 19 Active tamsulosin (Flomax) 0.4 MG capsule Take 1 (one) capsule by mouth once daily At the same time every day after a meal. 90 capsule 4 10/09/19 23 Active cloNIDine (Catapres) 0.1 MG tabletIndicati ons:Tardive dystonia Take 1 (one) tablet by mouth 3 times daily 90 tablet 08/31/19 24 Active propranolol ER 24hr (Inderal LA) 80 MG capsuleIndicat ions:Tremor TAKE 1 CAPSULE BY MOUTH EVERY DAY 30 capsule 09/07/19 24 Active HYDROcodone-ac etaminophen ([place]) 5-325 MG tablet 1 (one) tablet every 8 hours as needed for Pain 03/08/20 24 Active buPROPion XL 24hr (Wellbutrin-XL ) 300 MG tabletIndicati ons:Bipolar 1 disorder (HCC) TAKE 1 TABLET BY MOUTH EVERY DAY FOR ADHD OR MAJOR DEPRESSION 30 tablet 5 09/02/19 25 Active amitriptyline (Elavil) 25 MG tabletIndicati ons:Insomnia Take 1 (one) tablet by mouth at bedtime Reasons: Trouble Sleeping 90 tablet 4 09/02/19 25 Active OLANZapine (ZyPREXA) 2.5 MG tabletIndicati ons:Manic Phase of Bipolar Mood Disorder Take 1 (one) tablet by mouth once daily Reasons: Manic Phase of Manic-Depression 30 tablet 3 09/02/19 25 Active amitriptyline (Elavil) 25 MG tabletIndicati ons:Insomnia Take 1 (one) tablet by mouth at bedtime Reasons: Trouble Sleeping 90 tablet 4 06/09/19 25 025 Discontin ued(Reord er) buPROPion XL 24hr (Wellbutrin-XL ) 300 MG tabletIndicati ons:Bipolar 1 disorder (HCC) TAKE 1 TABLET BY MOUTH EVERY DAY FOR ADHD OR MAJOR DEPRESSION 30 tablet 5 06/09/19 25 025 Discontin ued(Reord er) OLANZapine (ZyPREXA) 2.5 MG tabletIndicati ons:Manic Phase of Bipolar Mood Disorder Take 1 (one) tablet by mouth once daily Reasons: Manic Phase of Manic-Depression 30 tablet 2 06/09/19 25 025 Discontin ued(Reord er) clonazePAM (KlonoPIN) 0.5 MG tabletIndicati ons:Anxiety Take 1 (one) tablet by mouth 2 times daily as needed for Anxiety (please take 1 tablet as needed twice a day for anxiety.) Reasons: Feeling Anxious 60 tablet 3 06/17/19 25 025 Discontin ued(Clini aleja Decision) OLANZapine (ZyPREXA) 2.5 MG tabletIndicati ons:Manic Phase of Bipolar Mood Disorder Take 1 (one) tablet by mouth once daily Reasons: Manic Phase of Manic-Depression 30 tablet 2 08/30/19 25 025 Discontin ued(Reord er) Active Problems Problem Noted Date Diagnosed Date [...] 06/12/2016 07/07/2018 Cervical myelopathy 10/29/19 18 Encounters * This document contains information received from the source organization and may not represent a complete record from that organization. Date Type Department Care Team Description 09/01/2024 Travel 08/16/2024 1:15 PM CDT Office Visit [facility] - Orthopedics [address] [facility] [place] [address] Matthew Sofia MD S/P cervical spinal fusion (Primary Dx) 08/16/2024 12:48 PM CDT - 08/16/2024 11:59 PM CDT Hospital Encounter [facility] [address] [facility] [place] [address] Matthew Sofia MD Discharge Disposition: Home or Self Care 08/16/2024 Travel 06/09/2024 Travel from Last 3 Months Immunizations Immunization Administration Dates Next Due INFLUENZA VACCINE, QUADR. [...] Date Recorded Patient Health Questionnaire-2 Score 0 09/01/2024 Sex and Gender Information Value Date Recorded Sex Assigned at Not on file Legal Sex Male 10:37 AM CDT Gender Identity Not on file Sexual Orientation Not on file Occupation Industry Job Start Date Job End Date disability Not on file Not on file Not on file Last Filed Vital Signs Vital Sign Reading Time Taken Comments Blood Pressure 110/78 09/01/2024 10:03 AM CDT Pulse 90 09/01/2024 10:03 AM CDT Temperature 36.3 C (97.3 F) 08/10/2023 1:27 PM CDT Respiratory Rate 20 05/16/2022 10:49 AM HOME HEALTH SPEECH THERAPIST Oxygen Saturation 99% 06/09/2024 11:08 AM HOME HEALTH SPEECH THERAPIST Inhaled Oxygen Concentration - - Weight 78.9 kg (174 lb) 08/16/2024 1:00 PM CDT Height 180.3 cm (5' 11 ) 09/01/2024 10:03 AM CDT Body Mass Index 24.27 08/16/2024 1:00 PM CDT Plan of Treatment Upcoming Encounters Date Type Department Care Team (Late st Contact Info) Description 08/22/2025 1:45 PM CDT Office Visit [facility] - Orthopedics [address] [place] [address], [place] [phone] Matthew Sofia MD [facility] [place], [place] [id number] Health Maintenance Due Date Last Done Comments [...] - 2023-2 5 season) 2023 INFLUENZA VACCINE (Season Ended) 2024 02/06/2020, 01/20/2019, 01/26/2018 COLON MONITORING 02/23/2029 02/23/2019, 02/23/2019 [...] one week prior to your last dose PAIN General No Mere Campbell, RN Note: Expected end date: 09/06/2024 Patient's pain/discomfort is manageable. Interventions: Take pain medication as ordered Medical Devices Implanted Type Area Electrician Machine Shop Device Identifier Shelf Expiration Date Model / Serial / Lot Tiss Kaur Srvc Fee 6.0 X 14mm X 11mm - [id number] Implanted:Qty: 1 on 10/08/2017 by Piotr Perez MD at [facility] N/A: Spine Cervical [employer] 05/18/2020 [id number] / [id number] / [id number] Tiss Kaur Srvc Fee 7.0 X 14mm X 11mm Implanted:Qty: 1 on 10/08/2017 by Piotr Perez MD at [facility] N/A: Spine Cervical [employer] [id number] / / Plate 57.5 Implanted:Qty: 1 on 10/08/2017 by Piotr Perez MD at [facility] N/A: Spine Cervical [employer] Inc [id number] / / Screw 4mm 14mm Spne Crv Ant Va Slf Drl Implanted:Qty: 2 on 10/08/2017 by Piotr Perez MD at [facility] N/A: Spine Cervical [employer] [id number] / / Screw 4mm 16mm Spne Crv Ant Va Slf Drl Implanted:Qty: 6 on 10/08/2017 by Piotr Perez MD at [facility] N/A: Spine Cervical [employer] [id number] / / Procedures Procedure Name Priority Date/Time Associated Diagnosis Comments XR CERVICAL SPINE 2 OR 3VW Routine 08/16/2024 12:53 PM CDT S/P cervical spinal fusion ENDOSCOPY, COLON, SCREENING Routine 02/23/2019 1:12 PM HOME HEALTH SPEECH THERAPIST HEPATITIS C ANTIBODY Routine 01/20/2019 4:15 PM CDT Encounter for immunization LIPID PROFILE Routine 09/18/2018 6:04 AM CDT from Last 3 Months or Most Recently Relevant to Health Maintenance Results * XR Cervical Spine 2 or 3Vw (08/16/2024 12:53 PM CDT) Anatomical Region Laterality Modality Spine Computed Radiogr aphy 08/16/2024 1:11 PM CDT Impressions 08/16/2024 1:13 PM CDT IMPRESSION: Anterior cervical discectomy and fusion, unchanged in alignment. Broken screws at C3, unchanged. > Interpreting Provider: Dave Field MD on 08/16/2024 1:13 PM Narrative 08/16/2024 1:13 PM CDT PROCEDURE: XR CERVICAL SPINE 2 OR 3VW DATE/TIME OF EXAM: 08/16/2024 12:53 PM CLINICAL INFORMATION: None relevant/not provided if blank. Indication: Z98.1: S/P cervical spinal fusion Additional History: COMPARISON: 01/15/2021. FINDINGS: There are again changes of anterior cervical discectomy and fusion at C3-C6 with a plate, screws, and interbody grafts. The screws at C3 are broken, unchanged. The vertebral alignment is unchanged. There is bony fusion of the C4-C6 vertebral bodies. C7 is partly obscured by the shoulders on the lateral view. Procedure Note Dave Field MD - 08/16/2024 PROCEDURE: XR CERVICAL SPINE 2 OR 3VW DATE/TIME OF EXAM: 08/16/2024 12:53 PM CLINICAL INFORMATION: None relevant/not provided if blank. Indication: Z98.1: S/P cervical spinal fusion Additional History: COMPARISON: 01/15/2021. FINDINGS: There are again changes of anterior cervical discectomy and fusion atC3-C6 with a plate, screws, and interbody grafts. The screws at C3 are broken, unchanged. The vertebral alignment is unchanged. There is bony fusion of the C4-C6 vertebral bodies. C7 is partly obscured by the shoulders onthe lateral view. IMPRESSION: Anterior cervical discectomy and fusion, unchanged in alignment. Broken screws at C3, unchanged. > Interpreting Provider: Dave Field MD on 08/16/2024 1:13 PM Matthew Sofia MD DIAGNOSTIC IMAGING ORDERABLES Fi nal Result * ENDOSCOPY, COLON, SCREENING (02/23/2019 1:12 PM HOME HEALTH SPEECH THERAPIST) Report Endoscopy POC Endoscopy Department Report __ _ Patient Name: Lamar Bradley Procedure Date: 02/23/2019 1:12 PM Date [...] esophageal mucosal changes secondary to established short-segment Poewll's disease present in the lower third of [...] non-shah portions. Procedure Code(s): --- Professional --- 37188, Esophagogastroduode noscopy, flexible, transoral; diagnostic, including collection of specimen(s) by brushing or washing, when performed (separate procedure) Diagnosis Code(s): --- Professional --- K22.70, Powell's esophagus without dysplasia R13.10, Dysphagia, unspecified CPT copyright 2016 [employer]. All rights reserved. The codes documented in this report are preliminary and upon radiology interventional physician review may be revised to meet current compliance requirements. ____ Selene Gudino MD 02/23/2019 2:35:00 PM Note Initiated On: 02/23/2019 1:12 PM Number of Addenda: 0 [facility] [address] [place] [address] [facility] 02/23/2019 1:12 PM HOME HEALTH SPEECH THERAPIST Selene Gudino MD GI PROCEDURE ORDERABLES E dited Result - Final [facility] PROVATION * HEPATITIS C ANTIBODY (01/20/2019 4:15 PM CDT) Hepatitis C Antibody Non-react leo Non-reac tive 01/20/2019 6:58 PM [facility] Comment: Hepatitis C Antibody screen indicates [...] 4:15 PM CDT 01/20/2019 4:29 PM CDT us Spike Etienne MD LAB - CHEMISTRY ORDERABLES Fi nal Result [address] [phone] * (ABNORMAL) LIPID PROFILE (09/18/2018 6:04 AM CDT) [facility] Cholesterol Total 180 <200 mg/dL 09/18/2018 8:29 AM [facility] HDL 51 >40 mg/dL 09/18/2018 8:29 AM [facility] Comment: ATP III Classification of HDL Cholesterol: <40 mg/dL: Considered a major risk factor. >60 mg/dL: Considered a negative risk factor. LDL Calculated 110(H) <100 mg/dL 09/18/2018 8:29 AM [facility] Comment: ATP III Classification of LDL Cholesterol: <100 mg/dL: Optimal 100 - 129 mg/dL: Near Optimal/Above Optimal 130 - 159 mg/dL: Borderline High 160 - 189 mg/dL: High >190 mg/dL: Very High Triglycerides 94 <150 mg/dL 09/18/2018 8:29 AM [facility] Comment: ATP III Classification of Triglycerides: <150 mg/dL: Normal 150 - 199 mg/dL: Borderline High 200 - 400 mg/dL: High >500 mg/dL: Very High Blood BLOOD SPECIMEN / Unknown Venipuncture / Unknown 09/18/2018 6:04 AM CDT 09/18/2018 6:14 AM CDT us Magali Grace MD LAB - CHEMISTRY ORDERAB LES Final Result [facility] [address] [phone] from Last 3 Months or Most Recently Relevant to Health Maintenance Insurance [facility] [place] Chip Estimate [facility] Advance Directives Documents on File Type Date Recorded Patient Ice Handler Expl anation Adv Directive/Living Will/POA 08/18/2017 2:52 PM * Full Code (Latest Code Status on File) Date Activated Date Inactivated Comments 09/16/2018 8:30 PM 09/20/2018 2:49 PM * Full Code Date Activated Date Inactivated Comments 10/08/2017 2:30 PM 10/20/2017 8:07 PM * Full Code Date Activated Date Inactivated Comments 07/24/2017 9:46 AM 07/28/2017 4:37 PM Care Teams Machine Brusher Relationship Specialty Start Date End Date Mari Lazaro MD [address] [place], [place] [id number] PCP - General Internal Medicine 10/20/23
--- OUTSIDE RECORDS SUMMARY | 2024-09-06 00:39 | XMS_ITS | Encounter Summary ---
Author Organization [facility] Address [address] [facility] [place] [address] Care Team Providers Care Regional Director Of Admissions Name Role Phone KarthikAye Unavailable Unavailable Leroy Caballero MD Primary Care Provider Umberto Nguyen MD Primary Care Provider Juanjo Dowell MD Primary Care Provider [phone] Umberto Nguyen MD Primary Care Provider [phone] Spike Etienne MD Unavailable Niyah Bush MD Primary Care Provider Umberto Nguyen MD Primary Care Provider Spike Etienne MD Primary Care Provider Spike Etienne MD Primary Care Provider Spike Etienne MD Primary Care Provider Tiffany Dennis DO Primary Care Provider Bailee DUGGAN MD, Fred R Primary Care Provider + Tiffany Dennis DO Primary Care Provider Spike Etienne MD Primary Care Provider [phone] Umberto Nguyen MD Primary Care Provider Mari aLzaro MD Primary Care Provider Encounter Details Date Type Department Care Team (Late st Contact Info) Description 04/26/2018 Testing Visit [facility] [address] [place] [phone] Juana Johansen, MAC OPERATOR [address] [place] [phone] Social History Tobacco Use Types Packs/Day Years [...] documented as of this encounter Functional Status * Is person deaf or have serious hearing difficulty? Answer Date of Assessment Author No 10/09/2017 12:45 AM CDT Ankita Prieto RN * Is person blind or have serious difficulty seeing? Answer Date of Assessment Author Yes 10/09/2017 12:45 AM DONALDT Ankita Prieto RN * Does person have serious difficulty walking/climbing stairs? Answer Date of Assessment Author No 10/09/2017 12:45 AM DONALDT Ankita Prieto, CRISTINA * Does person have difficulty dressing/bathing? Answer Date of Assessment Author No 10/09/2017 12:45 AM DONALDT Ankita Prieto, RN * Does person have difficulty doing errands alone? Answer Date of Assessment Author No 10/09/2017 12:45 AM DONALDT Ankita Prieto RN documented as of this encounter Mental Status * Does person have difficulty concentrating/remembering/making decisions? Answer Entry Date Author Yes 10/09/2017 12:45 AM Ankita Peralta RN documented in this encounter Progress Notes * Juana Deleon, MAC OPERATOR - 04/26/2018 11:14 AM CST Speech Language/Pathology Speech Therapy Modified Barium Swallow [id number] Date of : 1960 Age: 57 y.o. Referring Physician: Dr. Perez Diagnosis: Patient Active Problem List: Esophagitis Chronic low back pain with sciatica Tremor Cervical spine ankylosis S/P cervical spinal fusion Cocaine use disorder, severe, in early remission Bipolar affective disorder, currently depressed, moderate Past Medical History: Diagnosis Date â€¢ Alcoholism â€¢ Anemia â€¢ Anxiety â€¢ Arthritis â€¢ Cervical myelopathy â€¢ Depression â€¢ Esophageal tear â€¢ Esophagitis â€¢ GERD (gastroesophageal reflux disease) â€¢ Legally blind 1973 left eye â€¢ Pain back/ left shoulder chronic â€¢ Sciatica â€¢ Tardive dystonia â€¢ Ulcer of esophagus with bleeding Subjective: Gustabo [...] in conjunction with radiology using lateral and [id number] views. The patient was given the following [...] recommendations from this evaluation were reviewed with tdfadfhe patient. I recommend patient observe an esophageal [...] swallowing strategies and/or recommendations and verbalize understanding. Tire Repairman Goal(s): Patient to tolerate least restrictive diet [...] least twice each day. Juana Deleon MA, CCC-MAC OPERATOR Speech Language Pathologist Department of Otolaryngology- Head and Neck Surgery [facility] COOK documented in this encounter Plan of Treatment Upcoming Encounters Date Type Department Care Team (Late st Contact Info) Description 08/22/2025 1:45 PM CDT Office Visit [facility] - Orthopedics [address] [place] [address], [facility] [place] [address] Matthew Sofia MD [address] [place] [phone] documented as of this encounter Visit Diagnoses Not on filedocumented in this encounter Care Teams Regional Director Of Admissions Relationship Specialty Start Date End Date Leroy Caballero MD PCP - General 11/17/17 05/18/18 Umberto Nguyen MD PCP - General 05/19/18 08/31/18 Juanjo Dowell MD [address] [place] [address] PCP - General Internal Medicine 09/01/18 09/02/18 Umberto Nguyen MD PCP - General 09/03/18 01/20/19 Niyah Bush MD [facility] [place] [address] PCP - General Internal Medicine 01/22/19 01/22/19 Umberto Nguyen MD PCP - General 01/23/19 02/10/19 Spike Etienne MD [address] [place] [address] PCP - General 02/11/19 02/22/19 Spike Etienne MD [address] [place] [address] PCP - General 03/21/19 06/28/19 Spike Etienne MD [address] [place] [address] PCP - General 06/29/19 10/24/19 Tiffany Dennis DO [address] [place] [address] PCP - General 10/25/19 10/31/19 Celestino Morocho III, MD [address] [place] [address] PCP - General Internal Medicine 11/01/19 11/09/19 Tiffany Dennis DO [address] [place] [address] PCP - General 11/10/19 12/01/19 Spike Etienne MD [address] [place] [address] PCP - General 01/17/21 09/22/22 Umberto Nguyen MD [address] [place] [address] PCP - General Family Medicine 09/23/22 10/19/23 Mari Lazaro MD [address] [facility] [address] [place] [id number] PCP - General Internal Medicine 10/20/23 Aye Angeles Adult Neuropsychologist Psychiatry 11/05/17 09/21/18 Spike Etienne MD [address] [place] [address] Resident - PCP General Medicine 01/21/19 01/08/21 documented as of this encounter
--- OUTSIDE RECORDS SUMMARY | 2024-09-06 00:39 | XMS_ITS ---
Author Organization [facility] Address [address] [address] Care Team Providers Care Stripe Marker Name Role Phone Judd Lazaro Primary Care Provider [phone] Medications Medication SIG (Take, Route, Frequency, Duration) Notes Start Date End Date Status HYDROcodone-Acetaminophen 5-325 MG 1 tablet Orally every 8 hrs for 14 days As needed 08/23/2024 Active Encounters Encounter Location Date Provider Diagnosis [facility] [address] [facility] [address] [place] [address] 08/23/2024 Judd Lazaro Plan Of Treatment Medication Medication Name Sig Start Date Stop Date Notes HYDROcodone-Acetaminophen 5- 325 MG 1 tablet Orally every 8 hrs for 14 days 08/23/2024 Next Appt Details Provider Name:Judd mann, 09/19/2024 11:00:00 AM, [address] [facility] [address], [place], [address], Progress Notes * Gustabo RIVERADOB:1960 (63 yo M)Acc No.[id number]:08/23/2024 Patient: Gustabo CHRISTINE :1960 A ge:63 Y S ex:Male Address:[address] [place] [address], [address] * Refills Refill HYDROcodone-Acetaminophen Tablet, 5-325 MG, Orally, 42 Tablet, 1 tablet, every 8 hrs, 14 days, Refills=0 * true * Date: Generated for Sarahi ng/Faxing/eTransmitting on: 0 09/06/2024 01:39 AM EDT
--- OUTSIDE RECORDS SUMMARY | 2024-09-06 00:39 | XMS_ITS | Encounter Summary ---
Author Organization [facility] Address [address] [facility] [place] [address] Care Team Providers Care Tube Mounter Name Role Phone Aye Angeles Unavailable Unavailable Umberto Nguyen MD Primary Care Provider Juanjo Dowell MD Primary Care Provider [phone] Umberto Nguyen MD Primary Care Provider [phone] Spike Etienne MD Unavailable Niyah Bush MD Primary Care Provider Umberto Nguyen MD Primary Care Provider [phone] Spike Etienne MD Primary Care Provider [phone] Spike Etienne MD Primary Care Provider [phone] Spike Etienne MD Primary Care Provider Tiffany Dennis DO Primary Care Provider Bailee DUGGAN MD, Fred R Primary Care Provider + Tiffany Dennis DO Primary Care Provider [phone] Spike Etienne MD Primary Care Provider Umberto Nguyen MD Primary Care Provider Mari Lazaro MD Primary Care Provider [phone] Encounter Details Date Type Department Care Team (Late Contact Info) Description 08/31/2018 Lab Requisition [facility] Care Pathology Lab [address] [place] [address] Sabrina Scott MD [address] [facility] [place] [address] Social History Tobacco Use Types Packs/Day Years Used Date Smoking Tobacco: Never Smokeless Tobacco: Never Alcohol Use Standard Drinks/Week Comments No 0 (1 standard drink = 0.6 oz pure alcohol) quit 2016 ETOH abuse/heavy use beer whiskey Sex and [...] of Assessment Author Yes 10/09/2017 12:45 AM CDT Ankita Prieto RN * Does person have serious difficulty walking/climbing stairs? Answer Date of Assessment Author No 10/09/2017 12:45 AM DONALDT Ankita Prieto RN * Does person have difficulty dressing/bathing? Answer Date of Assessment Author No 10/09/2017 12:45 AM DONALDT Ankita Prieto, RN * Does person have difficulty doing errands alone? Answer Date of Assessment Author No 10/09/2017 12:45 AM CDT Ankita Prieto RN documented as of this encounter Mental Status * Does person have difficulty concentrating/remembering/making decisions? Answer Entry Date Author Yes 10/09/2017 12:45 AM DONALDT Ankita Prieto RN documented in this encounter Plan of Treatment Upcoming Encounters Date Type Department Care Team (Late Contact Info) Description 08/22/2025 1:45 PM CDT Office Visit [facility] - Orthopedics [address] [facility], [place] [id number] Matthew Sofia MD [address] [place] [address] documented as of this encounter Goals Goal [...] 2:06 PM CDT) Client Specimen ID # [id number] 09/07/2018 5:33 PM CDT [facility] Number of Blocks Received 0 09/07/2018 5:33 PM CDT [facility] Number of Slides 2 09/07/2018 5:33 PM CDT [facility] Number of Control Slides 1 09/07/2018 5:33 PM CDT [facility] Pathology/Cytolo gy ESOPHAGEAL BIOPSY SPECIMEN / Unknown 08/26/2018 2:06 PM CDT 08/31/2018 11:43 AM CDT Sabrina Scott MD LAB - PATHOLOGY/CYTOLOGY ORDERAB LES Final Result Performing Organization Address [facility]/State/[facility] Co de Phone Number [facility] PATHOLOG[facility] LAB [address] [phone] documented in this encounter Visit Diagnoses Not on filedocumented in this encounter Care Teams Tube Mounter Relationship Specialty Start Date End Date Umberto Nguyen MD PCP - General 05/19/18 08/31/18 Juanjo Dowell MD [address] [place] [address] PCP - General Internal Medicine 09/01/18 09/02/18 Umberto Nguyen MD PCP - General 09/03/18 01/20/19 Niyah Bush MD [address] [place] [address] PCP - General Internal Medicine 01/22/19 01/22/19 Umberto Nguyen MD PCP - General 01/23/19 02/10/19 Spike Etienne MD [address] [place] [address] PCP - General 02/11/19 02/22/19 Spike Etienne MD [address] [place] [address] PCP - General 03/21/19 06/28/19 Spike Etienne MD [address] [place] [address] PCP - General 06/29/19 10/24/19 Tiffany Dennis DO [address] [place] [address] PCP - General 10/25/19 10/31/19 Celestino Morocho III, MD [address] [place] [address] PCP - General Internal Medicine 11/01/19 11/09/19 Tiffany Dennis DO [address] [place] [address] PCP - General 11/10/19 12/01/19 Spike Etienne MD [address] [place] [address] PCP - General 01/17/21 09/22/22 Umberto Nguyen MD [address] [place] [address] PCP - General Family Medicine 09/23/22 10/19/23 Mari Lazaro MD [address] [place] [id number] PCP - General Internal Medicine 10/20/23 Aye Angeles Memorandum Statement Clerk Psychiatry 11/05/17 09/21/18 Spike Etienne MD [address] [place] [address] Resident - PCP General Medicine 01/21/19 01/08/21 documented as of this encounter
--- OUTSIDE RECORDS SUMMARY | 2024-09-06 00:39 | XMS_ITS | Encounter Summary ---
Author Organization [facility] Address [address] [facility] [address] Care Team Providers Care Meteorologist Liaison Name Role Phone Spike Etienne MD Unavailable Umberto Nguyen MD Primary Care Provider [phone] Spike Etienne MD Primary Care Provider [phone] Spike Etienne MD Primary Care Provider Spike Etienne MD Primary Care Provider Tiffany Dennis DO Primary Care Provider Bailee DUGGAN MD, Celestino Carpio Primary Care Provider + Tiffany Dennis DO Primary Care Provider [phone] Spike Etienne MD Primary Care Provider [phone] Umberto Nguyen MD Primary Care Provider [phone] Mari Lazaro MD Primary Care Provider Reason for Visit * Reason Onset Date Comments Order 01/26/2019 ordered colonosc opy, TTG and anti endomysial IgA lab Medication Issue 01/26/2019 ferrous sulfate 325 (65 FE) MG 1 tab daily Encounter Details Date Type Department Care Team (Late st Contact Info) Description 01/26/2019 Telephone [facility] [address] [address] Umberto Nguyen MD [address] [place] [address] Order (ordered colonoscopy, TTG and anti endomysial [...] file Not on file Not on file documented as of this encounter Functional Status * Is person deaf or have serious hearing difficulty? Answer Date of Assessment Author No 09/16/2018 9:21 PM Kayley Tabor RN * Is person blind or have serious difficulty seeing? Answer Date of Assessment Author No 09/16/2018 9:21 PM DONALDT Kayley Minaya RN * Does person have serious difficulty walking/climbing stairs? Answer Date of Assessment Author No 09/16/2018 9:21 PM Kayley Tabor RN * Does person have difficulty dressing/bathing? Answer Date of Assessment Author No 09/16/2018 9:21 PM Kayley Tabor RN * Does person have difficulty doing errands alone? Answer Date of Assessment Author No 09/16/2018 9:21 PM Kayley Tabor RN documented as of this encounter Mental Status * Does person have difficulty concentrating/remembering/making decisions? Answer Entry Date Author No 09/16/2018 9:21 PM Kayley Tabor RN documented in this encounter Miscellaneous Notes * Telephone Encounter [...] PM CDT Patient calling and would like MD to order a stress test [phone] documented in this encounter Plan of Treatment Upcoming Encounters Date Type Department Care Team (Late st Contact Info) Description 08/22/2025 1:45 PM CDT Office Visit [facility] - Orthopedics [address] [place] [address], [facility] [place] [id number] Matthew Sofia MD [address] [place] [phone] documented as of this encounter Goals Goal [...] on filedocumented in this encounter Care Teams Meteorologist Liaison Relationship Specialty Start Date End Date Umberto Nguyen MD PCP - General 01/23/19 02/10/19 Spike Etienne MD PCP - General 02/11/19 02/22/19 Spike Etienne MD PCP - General 03/21/19 06/28/19 Spike Etienne MD PCP - General 06/29/19 10/24/19 Tiffany Dennis DO [address] [place] [address] PCP - General 10/25/19 10/31/19 Celestino Morocho III, MD [address] [place] [address] PCP - General Internal Medicine 11/01/19 11/09/19 Tiffany Dennis DO [address] [place] [address] PCP - General 11/10/19 12/01/19 Spike Etienne MD PCP - General 01/17/21 09/22/22 Umberto Nguyen MD [address] [place] [address] PCP - General Family Medicine 09/23/22 10/19/23 Mari Lazaro MD [address] [facility] [address] [place], [place] [id number] PCP - General Internal Medicine 10/20/23 Spike Etienne MD Resident - PCP General Medicine 01/21/19 01/08/21 documented as of this encounter
--- OUTSIDE RECORDS SUMMARY | 2024-09-06 00:40 | XMS_ITS ---
Author Organization [facility] Address [address] [address] Care Team Providers Care Real Estate Firm Manager Name Role Phone Judd Lazaro Primary Care Provider Allergies Allergen (clinical drug ingredient) Drug/Non Drug Allergy documented on EMR Reaction Allergy Type Onset Date Status diphenhydramine Benadryl hives Drug Allergy A ctive REASON FOR VISIT F/U HLD Medications Medication SIG (Take, Route, Frequency, Duration) Notes Start Date End Date Status cloNIDine HCl 0.1 MG 1 tablet Orally Twi ce a day Active Omeprazole 40 MG 1 capsule 30 minutes before morning meal Orally Once a day for 30 day(s) Active Latanoprost 0.005 % 1 drop into affected eye in the evening Ophthalmic Once a day Active Famotidine 20 MG TAKE 1 TABLET BY ODALIS TH DAILY AT BEDTIME for 90 Active HYDROcodone-Acetaminophen 5-325 MG 1 tablet Orally every 8 hrs for 14 days As needed 08/23/2024 Active Inderal LA 80 MG 1 capsule Orally Onc e a day Active Triamcinolone Acetonide 0.1 % 1 application Externally Twice a day As needed Active Wellbutrin XL 300 MG 1 tablet in the mor sandor Orally Once a day for 30 day(s) Active Dupixent 300 MG/2ML 1 injection Subcutan eous Every 2 week Active EpiPen Active Amitriptyline HCl 10 MG 1 tablet at bedt trini Orally Once a day Active Social History Tobacco Use: Social History Observation Description Date Details (start date - stop date) Never Smoker NA - NA Tobacco Use/Smoking Question Answer Notes Are you a nonsmoker Alcohol Screen (Audit-C) Question Answer Notes Did you have a drink containing alcohol in the p ast year? No Points 0 Interpretation Negative Vital Signs Temperature 97.4 degrees Fahrenheit 09/06/19 25 Blood pressure systolic 122 mm Hg 09/06/19 25 Blood pressure diastolic 74 mm Hg 025 Heart Rate 80 /min 09/05/2024 Respiratory Rate 16 /min 09/05/2024 Height 71 in 09/05/2024 Weight 154 lbs 09/05/2024 BMI 21.48 kg/m2 09/05/2024 Oximetry 96 % 09/05/2024 ple Encounters Encounter Location Date Provider Diagnosis [facility] [address] [facility] [address] [place] [address] 09/05/2024 Judd Lazaro Gastroesophageal ref lux disease without esophagitis K21.9 ; Hyperlipidemia E78.5 ; Cervical spondylosis M47.812 ; Neck pain M54.2 ; OA (osteoarthritis) of shoulder M19.019 and Chronic pain syndrome G89.4 Assessments Encounter Date Diagnosis (ICD Code) Assessment Notes Treatment Notes Treatment Clinical Notes Section Notes 09/05/2024 Gastroesophageal reflux disease without esophagitis (ICD-10 - K21.9) Gastroesophageal Reflux Disease (GERD): Care Instructions material was printed 09/05/2024 Hyperlipidemia (ICD-10 - E78.5) 09/05/2024 Cervical spondylosis (ICD-10 - M47.812) 09/05/2024 Neck pain (ICD-10 - M54.2) 09/05/2024 OA (osteoarthritis) of shoulder (ICD-10 - M19.019) 09/05/2024 Chronic pain syndrome (ICD-10 - G89.4) Plan Of Treatment Treatment Notes Assessment Notes Gastroesophageal reflux dise ase without esophagitis Gastroesophageal Reflux Disease (GERD): Care Instructions material was printed Next Appt Details Provider Name:Judd mann, 09/19/2024 11:00:00 AM, [address] [facility], [address], [place], [address], Progress Notes * Gustabo RIVERADOB:1960 (63 yo M)Acc No.[id number]:09/05/2024 Progress Notes Patient: Beatriz BULLGustabo LEIVA Provider: Umang Lazaro M.D. :1960 A ge:63 Y S ex:Male Date:09/05/2024 Address:[address] [place], [place] [id number] Subjective: * Chief Complaints: * 1 . F/U HLD. * Medical History: A DHD, Tard. Dyskinesia. * Surgical History: P erferated colon 2021, Esophegeal repair 2022, Plate in neck 2022. * Family History: F ather: , diagnosed with Other malignant neoplasm of unspecified site, Unspecified essential hypertension, Unspecified heart disease. M other: alive, diagnosed with Diabetes mellitus without mention of complication, type II or unspecified type, not stated as uncontrolled, Unspecified essential hypertension. Father - Liver CA Family Hx - HTN, Heart disease, DM Type 2. * Social History: T obacco Use: T obacco Use/Smoking A re you a n onsmoker. D rugs/Alcohol: D rugs H ave you used drugs other than those for medical reasons in the past 12 months? No. A lcohol Screen (Audit-C) D id you have a drink containing alcohol in the past year? N o, P oints 0 , I nterpretation N egative. C affeine I ntake: m ore than 4 cups per day. D o you smoke marijuana?: Denies. Do you drink alcohol?: No. * Medications: T aking Amitriptyline HCl 10 MG Tablet 1 tablet at bedtime Orally Once a day , Taking Dupixent 300 MG/2ML Solution Auto-injector 1 injection Subcutaneous Every 2 week , Taking EpiPen , Taking Triamcinolone Acetonide 0.1 % Cream 1 application Externally Twice a day As needed, Taking Wellbutrin XL 300 MG Tablet Extended Release 24 Hour 1 tablet in the morning Orally Once a day , Taking Inderal LA 80 MG Capsule Extended Release 24 Hour 1 capsule Orally Once a day , Taking Latanoprost 0.005 % Solution 1 drop into affected eye in the evening Ophthalmic Once a day , Taking cloNIDine HCl 0.1 MG Tablet 1 tablet Orally Twice a day , Taking Omeprazole 40 MG Capsule Delayed Release 1 capsule 30 minutes before morning meal Orally Once a day , Taking Famotidine 20 MG Tablet TAKE 1 TABLET BY MOUTH DAILY AT BEDTIME , Taking HYDROcodone-Acetaminophen 5-325 MG Tablet 1 tablet Orally every 8 hrs As needed, Medication List reviewed and reconciled with the patient * Allergies: B enadryl: hives. Objective: * Vitals: T emp:97.4F, HR:80/min, BP:122/74mm Hg, Wt:154lbs, BMI:21.48Index, Ht: 71 in, RR:16/min, Oxygen sat %:96%, Peak Flow:RA, Ht-cm: 180.34 cm, Wt-k.85 kg. ple. Assessment: * Assessment: 1. H yperlipidemia - E78.5 2 . G astroesophageal reflux disease without esophagitis - K21.9 (Primary) 3 . C ervical spondylosis - M47.812 4 . N avi pain - M54.2 5 . O A (osteoarthritis) of shoulder - M19.019 6 . C hronic pain syndrome - G89.4 Plan: * Treatment: * Preventive Medicine: Your Preventative Wellness Plan: C olorectal Cancer Screening C olonoscopy is recommended once every 10 years for patients at low risk or 2 years if at high risk. STATUS: O rdered Colonoscopy Scheduled for 09.06.2024. * * Electronic signature of Minerva Lazaro MD on 09/06/2024 at 01:39 AM EDT Sign off status: Pending * Provider: Umang Lazaro M.D. Date: 09/05/2024 Generated for Eleni king/Miky/Hayden on: 09/06/2024 01:39 AM EDT
--- OUTSIDE RECORDS SUMMARY | 2024-09-06 00:40 | XMS_ITS | Continuity of Care Document ---
Author Organization [facility] Address [address] [place] [address] Phone Care Team Providers Care Fertilizer Loader Name Role Phone Umberto Nguyen MD Unavailable [...] [facility], [address], [place], [place], [id number], tel:[phone] [facility] No Information 9 Patrick Shipman. [address], [place], [place], [address] , [place]. tel:[phone] Referring Provider: Abbi Garcia [address], [place], [place], [address]. tel:[phone] OFFICE/OUTPA TIENT VISIT, EST [facility], [address], [place], [place], [address], [place] tel:[phone] [facility] hyponatrem ia1 (chief complaint) weight loss1 (chief complaint) back pain1 (chief complaint) BPH1 (chief complaint) HyponatremiaBPH w/ lower urinary tract symptomAbnormal weight lossChronic pain syndrome 9 Patrick Shipman. [address], [place], [place], [address] , [place]. tel:[phone] Referring Provider: Abbi Garcia [address], [place], [place], [address]. tel:[phone] [facility], [address], [place], [place], [address], [place] tel:[phone] [facility] No Information 9 Patrick Shipman. [address], [place], [place], [address] , [place]. tel:[phone] PREV VISIT, EST, AGE 40-64 [facility], [address], [place], [place], [address], [place] tel:[phone] [facility] physical (chief complaint) Encounter for general adult medical exam w abnormal findingsHyponatremi aHyperlipidemiaEsse ntial thrombocytosisTardi ve dyskinesiaBarrett's esophagus without dysplasiaAbnormal weight loss Fe- 9 Patrick Laird [address], [place], [place], [address] , [place]. tel:[phone] Referring Provider: Abbi [address], [place], [place], [address]. tel:[phone] OFFICE/OUTPA TIENT VISIT, [facility], [address], [place], [place], [address], [place] tel:[phone] [facility] urine (chief complaint) urine1 (chief complaint) ear pain1 (chief complaint) insomnia1 (chief complaint) Otalgia, right earInsomniaBPH w/ lower urinary tract symptomAnemia 9 Patrick Laird [address], [place], [place], [address] , [place]. tel:[phone] Referring Provider: Abbi Garcia [address], [place], [place], [address]. tel:[phone] OFFICE/OUTPA TIENT VISIT, [facility], [address], [place], [place], [address], [place] tel:[phone] [facility] insomani1 (chief complaint) chronic pain1 (chief complaint) barrett1 (chief complaint) tardive dyskinesia 1 (chief complaint) Townsend's esophagusGeneralize d anxiety disorderInsomniaAbn ormal weight lossChronic pain syndrome 8 Patrick Laird [address], [place], [place], [address] , [place]. tel:[phone] Referring Provider: Abbi Garcia [address], [place], [place], [address]. tel:[phone] OFFICE/OUTPA TIENT VISIT, [facility], [address], [place], [place], [address], [place] tel:[phone] [facility] insomnia1 (chief complaint) GERD1 (chief complaint) Other insomniaBarrett's esophagus 5 Patrick Laird [address], [place], [place], [address] , [place]. tel:[phone] Referring Provider: Umberto Nguyen, [address], [place], [place], [address]. tel:[phone] OFFICE/OUTPA TIENT VISIT, [facility], [address], [place], [place], [address], [place] tel:[phone] [facility] fatigue1 (chief complaint) GERD1 (chief complaint) Dietary surveillance and counselingFatigueOt her insomniaGERD with esophagitis 5 Patrick Shipman. [address], [place], [place], [address] , [place]. [phone] Referring Provider: Abbi Garcia [address], [place], [place], [address]. tel:[phone] PREV VISIT, [facility], AGE 40-64 [facility], [address], [place], [place], [address], [place] tel:[phone] [facility] Physical (chief complaint) Dietary surveillance and counselingRoutine medical exam 5 Patrick Shipman. [address], [place], [place], [address] , [place]. [phone] Referring Provider: Umberto Nguyen [address], [place], [place], [address]. tel:[phone] OFFICE/OUTPA TIENT VISIT, [facility], [address], [place], [place], [address], [place] tel:[phone] [facility] chronic pain (chief complaint) ADD (chief complaint) anxiety (chief complaint) GERD (chief complaint) CHRONIC PAIN NECGeneralized anxiety disorderAttention deficit disorder of childhood without mention of hyperactivityGERD 4 Patrick Shipman. [address], [place], [place], [address] , [place]. tel:[phone] Referring Provider: Umberto Nguyen [address], [place], [place], [address]. tel:[phone] OFFICE/OUTPA TIENT VISIT, [facility], [address], [place], [place], [address], [place] tel:[phone] [facility] chronic pain (chief complaint) ADD (chief complaint) Anxiety (chief complaint) CHRONIC PAIN NECAttention deficit disorder of childhood without mention of hyperactivityGenera lized anxiety disorder 4 Patrick Shipman. [address], [place], [place], [address] , [place]. tel:[phone] Referring Provider: Umberto Nguyen, [address], [place], [place], [address]. tel:[phone] OFFICE/OUTPA TIENT VISIT, [facility], [address], [place], [place], [address], [place] tel:[phone] [facility] anxiety (chief complaint) ADD (chief complaint) chronic pain (chief complaint) CHRONIC PAIN NECGeneralized anxiety disorderAttention deficit disorder of childhood without mention of hyperactivityFamily Hx of Cardiovascular Disease 4 Patrick Shipman. [address], [place], [place], [address] , [place]. tel:[phone] Referring Provider: Abbi [address], [place], [place], [address]. tel:[phone] OFFICE/OUTPA TIENT VISIT, [facility], [address], [place], [place], [address], [place] tel:[phone] [facility] chornic pain (chief complaint) Anxiety (chief complaint) rash (chief complaint) Generalized anxiety disorderAttention deficit disorder of childhood without mention of hyperactivityLumbag oFamily Hx of Cardiovascular Disease 4 Patrick Shipman. [address], [place], [place], [address] , [place]. tel:[phone] Referring Provider: Abbi Garcia [address], [place], [place], [address]. tel:[phone] OFFICE/OUTPA TIENT VISIT, [facility], [address], [place], [place], [address], [place] tel:[phone] [facility] back pain (chief complaint) anxiety (chief complaint) ADD (chief complaint) CHRONIC PAIN NECAttention deficit disorder of childhood without mention of hyperactivityGenera lized anxiety disorder 4 Patrick Shipman. [address], [place], [place], [address] , [place]. tel:[phone] Referring Provider: Abbi Garcia [address], [place], [place], [address]. tel:[phone] OFFICE/OUTPA TIENT VISIT, [facility], [address], [place], [place], [address], [place] tel:[phone] [facility] chronic pain (chief complaint) anxiety (chief complaint) ADD (chief complaint) Attention deficit disorder of childhood without mention of hyperactivityCervic algiaLumbagoDepress ion 4 Patrick Shipman. [address], [place], [place], [address] , [place]. tel:[phone] Referring Provider: Abbi Garcia [address], [place], [place], [address]. tel:[phone] OFFICE/OUTPA TIENT VISIT, [facility], [address], [place], [place], [address], [place] tel:[phone] [facility] back pain (chief complaint) ADD (chief complaint) foot pain (chief complaint) Dietary surveillance and counselingLumbagoCe rvicalgiaAttention deficit disorder of childhood without mention of hyperactivityChroni c ulcer of unspecified site 4 Patrick Shipman. [address], [place], [place], [address] , [place]. tel:[phone] Referring Provider: Ab[address], [place], [place], [address]. tel:[phone] OFFICE/OUTPA TIENT VISIT, [facility], [address], [place], [place], [address], [place] tel:[phone] [facility] neck pain (chief complaint) vitamin D (chief complaint) finger injury (chief complaint) ADD (chief complaint) CHRONIC PAIN NECFINGER INJURY OP NOSUnspecified vitamin d deficiencyGeneraliz ed anxiety disorder 4 Patrick Shipman. [address], [place], [place], [address] , [place]. tel:[phone] Referring Provider: Umberto Nguyen, [address], [place], [place], [address]. tel:[phone] PREV VISIT, NEW, AGE 40-64 [facility], [address], [place], [place], [address], [place] tel:[phone] [facility] Physical (chief complaint) Routine Medical ExamRoutine Medical Exam 4 Patrick Shipman. [address], [place], [place], [address] , [place]. tel:[phone] Family History Family Member Type Diagnosis Age At Onset Mother Problem (finding) Diabetes mellitus Mother Problem (finding) Hypertension Father Problem (finding) Coronary artery disease Father Problem (finding) Cancer, liver Brother Problem (finding) Coronary artery disease Payers Payer name Insurance type Covered constitution party ID Authoriza tion(s) No Information Social History Type Description Quantity Date Captured Comments Alcohol Use Details Unknown Caffeine Use Details Unknown Tobacco Use Status No Information Smoking Status No Information Sex Male Chief Complaint And Reason For Visit No Information Plan Of Treatment Date Type Action Status Referral Ordered: CT ABDOMEN&PELVIS W/CONTRAST ordered Referral Ordered: Otolaryngology (related to Otalgia, right ear) ordered Referral Ordered: [facility] : Surgery (related to BPH w/ lower urinary tract symptom) ordered Referral Referred To: [facility] [address] [place], [place], [phone] Ordered: Referrals: [facility] : [...] Date Complaint History Of Prese nt Illness hyponatremia1 Pt has hyponatre natty. which is due to trileptal. pt just seen his psychiatrist and trileptal was stopped and he was started on depakote instead. Pt denies any headache or mental status change weight loss1 Pt has hiatal he rnia and he lost good amount of weight. Pt had benign CT of chest, abdomen and pelvis. Pt denies any GERD Pt denies any appetite loss. back pain1 Pt has chronic b ack and neck pain Pt was seeing [facility] and he was getting norco and [facility] told him they do not give out norco anymore. Pt wants me to give him norco. Pt denies any loss of bladder control BPH1 Pt did have some urinary difficulty which resolved since stopping trileptal. Pt did see urology recently and he supposes to get green light TURP but he canceled the surgery and he does not want surgery anymore physical Pt needs annual physical. Pt has [...] for tardive dyskinesia. Pt is off norco. ear pain1 Pt states that karen de la cruz has a hole in his right eardrum since he was teenager. Pt states that he notices some pain right ear. Pt denies any hearing loss. Pt states that he can notices air from right ear when he blows his nose Pt denies any drainage insomnia1 Pt has insomnia. Pt takes amitriptyline and doing well. Pt wants to try higher dose. urine1 Pt c/o difficult y with urination for 2 months. pt has to push really hard to go. Pt denies any dysuria, urgency. Pt states that he has to get up 2-3 times at night to urinate but he has difficulty initiating urination urine Additional infor mation: Pt states that he has history of anemia. Pt denies any dizziness.. tardive dyskinesia1 Pt has tardi ve dyskinesia from history of anti psychotic medication. Pt is seeing psychiatrist now. Pt is off SSRIs also. pt is only taking klonopin PRn from psychiatrist. Pt denies any suicidal or homicidal thought. Pt denies any crying spells insomani1 Pt has chronic i nsomnia. Pt denies any snoring or any trouble with breathing at night. Pt used to take amitriptyline which worked well for him. He wants to get some refills. chronic pain1 Pt has chronic n avi pain. Pt recently had neck surgery and he is taking norco daily for pain from his neurosurgeon. Pt denies any radiculopathy. he also takes mobic daily barrett1 Pt has history o f townsend esophagus Pt has not followed up with GI for long time. he has not been taking any omeprazole for long time. Pt denies any GERD or abdominal pain pt also has been taking mobic for neck pain insomnia1 Pt has insomnia. Pt states that vistaril did not work Pt lies in bed for hours before falling asleep. Pt has not set up sleep study yet. Pt also sleeps for 12 hours every day. Pt usually wakes up around noon. GERD1 doing ok with om erpzole. EGD soon. fatigue1 Pt has chronic f atigue and he has no motivation at all. Pt denies any SOB or chest pain. Pt denies SOB. Pt states that he has insomnia. Pt does not snore but he feels very tired in the morning also. Pt denies feeling unable to catch his breath at night. GERD1 Pt has GERD and loraine esophagus. Pt doing better with omerpzole. Pt has appointment with Dr. Santos 03/30/15. Physical Pt needs annual physical. Pt recently [...]
--- OUTSIDE RECORDS SUMMARY | 2024-09-06 00:40 | XMS_ITS ---
Author Organization [facility] Address [address] [address] Care Team Providers Care Marine Diesel Mechanic Name Role Phone Judd Lazaro Primary Care Provider Medications Medication SIG (Take, Route, Frequency, Duration) Notes Start Date End Date Status HYDROcodone-Acetaminophen 5-325 MG 1 tablet Orally every 8 hrs for 14 days As needed 09/05/2024 Active Encounters Encounter Location Date Provider Diagnosis [facility] [address] [facility] [address] [place] [address] 09/05/2024 Judd Lazaro Plan Of Treatment Medication Medication Name Sig Start Date Stop Date Notes HYDROcodone-Acetaminophen 5- 325 MG 1 tablet Orally every 8 hrs for 14 days 09/05/2024 Next Appt Details Provider Name:Judd mann, 09/19/2024 11:00:00 AM, [address] [facility] [address], [place], [address], Progress Notes * Gustabo RIVERADOB:1960 (63 yo M)Acc No.[id number]:09/05/2024 Patient: Gustabo CHRISTINE :1960 A ge:63 Y S ex:Male Address:[address] [place] [address], [id number] * Refills Refill HYDROcodone-Acetaminophen Tablet, 5-325 MG, Orally, 42 Tablet, 1 tablet, every 8 hrs, 14 days, Refills=0 * true * Date: Generated for Sarahi ng/Faxing/eTransmitting on: 0 09/06/2024 01:40 AM EDT
--- OUTSIDE RECORDS SUMMARY | 2024-09-06 00:40 | XMS_ITS | Patient Health Record ---
Author Organization [facility] Address [address] [address] Care Team Providers Care Assemblyman Or Woman Name Role Phone Judd Lazaro Primary Care Provider [phone] Allergies Allergen (clinical drug ingredient) Drug/Non Drug Allergy documented on EMR Reaction Allergy Type Onset Date Status diphenhydramine Benadryl hives Drug Allergy A ctive Results Component Value Reference Range Notes LIPID PANEL (Not yet reviewe d by provider) Interpretation: Performing Lab:[facility] [place] [address] [facility] [facility] Notes/Report: PATIENT UNABLE TO VOID; ADVISED TO RETURN FOR COLLECTION. CHOLESTEROL, TOTAL 181 <200 mg/dL HDL CHOLESTEROL 57 > OR = 40 mg/dL TRIGLYCERIDES 102 <150 mg/dL LDL-CHOLESTEROL 104 Reference range: <100 Desirable range <100 mg/dL for primary prevention; <70 mg/dL for patients with CHD or diabetic patients with > or = 2 CHD risk factors. LDL-C is now calculated using the Jacques-Pricila calculation, which is a validated novel method providing better accuracy than the Friedewald equation in the estimation of LDL-C. Jacques ARREDONDO et al. BILL. 2013;310(19): 7786-4139 (http://education.Karaz.WolfGIS/faq/FUX978) CHOL/HDLC RATIO 3.2 <5.0 (calc) NON HDL CHOLESTEROL 124 <130 mg/dL (calc) For patients with diabetes plus 1 major ASCVD risk factor, treating to a non-HDL-C goal of <100 mg/dL (LDL-C of <70 mg/dL) is considered a therapeutic option. COMPREHENSIVE METABOLIC PANE L (Not yet reviewed by provider) Interpretation: Performing Lab:[facility] [place] [id number] Jose Ding [id number] [facility] Notes/Report: PATIENT UNABLE TO VOID; ADVISED TO RETURN FOR COLLECTION. GLUCOSE 106 65-99 mg/dL Fasting reference interval For someone without known diabetes, a glucose value between 100 and 125 mg/dL is consistent with prediabetes and should be confirmed with a follow-up test. UREA NITROGEN (BUN) 10 7-25 mg/dL CREATININE 0.99 0.70-1.35 mg/dL EGFR 87 > OR = 60 mL/min/1.73m2 BUN/CREATININE RATIO SEE NOTE: 6-22 (calc) Not Reported: BUN and Creatinine are within reference range. SODIUM 138 135-146 mmol/L POTASSIUM 3.9 3.5-5.3 mmol/L CHLORIDE 102 98-110 mmol/L CARBON DIOXIDE 28 20-32 mmol/L CALCIUM 9.6 8.6-10.3 mg/dL PROTEIN, TOTAL 7.4 6.1-8.1 g/dL ALBUMIN 4.7 3.6-5.1 g/dL GLOBULIN 2.7 1.9-3.7 g/dL (calc) ALBUMIN/GLOBULIN RATIO 1.7 1.0-2.5 (calc) BILIRUBIN, TOTAL 0.5 0.2-1.2 mg/dL ALKALINE PHOSPHATASE 75 35-144 U/L AST 12 10-35 U/L ALT 14 9-46 U/L CBC (INCLUDES DIFF/PLT) (Not yet reviewed by provider) Interpretation: Performing Lab:[facility] [place] [address] [address]ing QuiffjwYP[address] [facility] Notes/Report: PATIENT UNABLE TO VOID; ADVISED TO RETURN FOR COLLECTION. WHITE BLOOD CELL COUNT 8.9 3.8-10.8 Thousand/ uL RED BLOOD CELL COUNT 4.86 4.20-5.80 Million/uL HEMOGLOBIN 14.0 13.2-17.1 g/dL HEMATOCRIT 42.7 38.5-50.0 % MCV 87.9 80.0-100.0 fL MCH 28.8 27.0-33.0 pg MCHC 32.8 32.0-36.0 g/dL RDW 13.6 11.0-15.0 % PLATELET COUNT 386 140-400 Thousand/uL MPV 11.7 7.5-12.5 fL ABSOLUTE NEUTROPHILS 5500 6900-2787 cells/uL ABSOLUTE LYMPHOCYTES 2118 850-3900 cells/uL ABSOLUTE MONOCYTES 1113 200-950 cells/uL ABSOLUTE EOSINOPHILS 125 15-500 cells/uL ABSOLUTE BASOPHILS 45 0-200 cells/uL NEUTROPHILS 61.8 LYMPHOCYTES 23.8 MONOCYTES 12.5 EOSINOPHILS 1.4 BASOPHILS 0.5 SED RATE BY MODIFIED WESTERG VLADIMIR (Not yet reviewed by provider) Interpretation: Performing Lab:[facility] [place] [address] SilkeMiriam Kebede Notes/Report: PATIENT UNABLE TO VOID; ADVISED TO RETURN FOR COLLECTION. SED RATE BY MODIFIED WESTERGREN 11 < OR = 20 mm/h RHEUMATOID FACTOR (Not yet r eviewed by provider) Interpretation: Performing Lab:Rowan HERNANDEZ-Hqvmyj90124 Marilee Calero, WtqxocUE[address] Osmel Kebede MD Notes/Report: PATIENT UNABLE TO VOID; ADVISED TO RETURN FOR COLLECTION. RHEUMATOID FACTOR <10 <14 IU/mL AGNES IFA SCREEN W/REFL TO TIT ER AND PATTERN, IFA (Not yet reviewed by provider) Interpretation: Performing Lab:Rowan HERNANDEZ-Foaqxj44936 Marilee Calero, UuwrsfQR[address] Osmel Kebede MD Notes/Report: PATIENT UNABLE TO VOID; ADVISED TO RETURN FOR COLLECTION. AGNES SCREEN, IFA NEGATIVE NEGATIVE AGNES IFA is a first line screen for detecting the presence of up to approximately 150 autoantibodies in various autoimmune diseases. A negative AGNES IFA result suggests an AGNES-associated autoimmune disease is not present at this time, but is not definitive. If there is high clinical suspicion for Sjogren's syndrome, testing for anti-SS-A/Ro antibody should be considered. Anti-Marcy-1 antibody should be considered for clinically suspected inflammatory myopathies. AC-0: Negative International Consensus on AGNES Patterns (https://doi.org/10.1515/c tbn-6008-0167) For additional information, please refer to http://education.Splendia.WolfGIS/faq/TKT387 (This link is being provided for informational/ educational purposes only.) HEMOGLOBIN A1c (Not yet revi ewed by provider) Interpretation: Performing Lab:[facility] [address] [address] Ding [id number] Osmel Kebede Notes/Report: PATIENT UNABLE TO VOID; ADVISED TO RETURN FOR COLLECTION. HEMOGLOBIN A1c 5.5 <5.7 % of total Hgb For the purpose of screening for the presence of diabetes: <5.7% Consistent with the absence of diabetes 5.7-6.4% Consistent with increased risk for diabetes (prediabetes) > or =6.5% Consistent with diabetes This assay result is consistent with a decreased risk of diabetes. Currently, no consensus exists regarding use of hemoglobin A1c for diagnosis of diabetes in children. According to [place] Diabetes Association (ADA) guidelines, hemoglobin A1c <7.0% represents optimal control in non- diabetic patients. Different metrics may apply to specific patient populations. Standards of Medical Care in Diabetes(ADA). This test was performed on the Hayley beth c503 platform. Effective 07/06/23, a change in test platforms from the Tompkins [employer] Game Operator to the Hayley beth c503 may have shifted HbA1c results compared to historical results. Based on laboratory validation testing conducted at [facility], the Hayley platform relative to the Tompkins platform had an average increase in HbA1c value of < or = 0.3%. This difference is within accepted variability established by the National Glycohemoglobin Standardization Program. Note that not all individuals will have had a shift in their results and direct comparisons between historical and current results for testing conducted on different platforms is not recommended. PSA, TOTAL (Not yet reviewed by provider) Interpretation: Performing Lab:MARY [facility] Yeimy-Dxaeio70055 Marilee Calero, FoxbxtHG[address] Osmel Kebede MD Notes/Report: PATIENT UNABLE TO VOID; ADVISED TO RETURN FOR COLLECTION. PSA, TOTAL 1.45 < OR = 4.00 ng/mL The total PSA value from this assay system is standardized against the WHO standard. The test result will be approximately 20% lower when compared to the equimolar-standardized total PSA ([place]). Comparison of serial PSA results should be interpreted with this fact in mind. This test was performed using the Siemens chemiluminescent method. Values obtained from different assay methods cannot be used interchangeably. PSA levels, regardless of value, should not be interpreted as absolute evidence of the presence or absence of disease. T4, FREE (Not yet reviewed b y provider) Interpretation: Performing Lab:MARY [facility]-Oqmmzw05513 Alan HullaKS[address] [facility] Med Kebede MD Notes/Report: PATIENT UNABLE TO VOID; ADVISED TO RETURN FOR COLLECTION. T4, FREE 1.3 0.8-1.8 ng/dL TSH (Not yet reviewed by pro vider) Interpretation: Performing Lab:[place]an [place] [address] [address] Notes/Report: PATIENT UNABLE TO VOID; ADVISED TO RETURN FOR COLLECTION. TSH 2.96 0.40-4.50 mIU/L T3, FREE (Not yet reviewed b y provider) Interpretation: Performing Lab:Rowan HERNANDEZ LenexaKS[address] [facility] Med Kebede MD Notes/Report: PATIENT UNABLE TO VOID; ADVISED TO RETURN FOR COLLECTION. T3, FREE 3.4 2.3-4.2 pg/mL URINALYSIS, COMPLETE W/REFLE X TO CULTURE (Not yet reviewed by provider) Interpretation: Performing Lab:[place] [address] [address] Ding [address] Notes/Report: SPLIT 09/23/2023 FROM [id number] COLOR YELLOW YELLOW APPEARANCE CLEAR CLEAR SPECIFIC GRAVITY 1.007 1.001-1.035 PH 6.0 5.0-8.0 GLUCOSE NEGATIVE NEGATIVE BILIRUBIN NEGATIVE NEGATIVE KETONES NEGATIVE NEGATIVE OCCULT BLOOD NEGATIVE NEGATIVE PROTEIN NEGATIVE NEGATIVE NITRITE NEGATIVE NEGATIVE LEUKOCYTE ESTERASE NEGATIVE NEGATIVE WBC NONE SEEN < OR = 5 /HPF RBC NONE SEEN < OR = 2 /HPF SQUAMOUS EPITHELIAL CELLS NONE SEEN < OR = 5 /HPF BACTERIA NONE SEEN NONE SEEN /HPF HYALINE CAST NONE SEEN NONE SEEN /LPF NOTE This urine was analyzed for the presence of WBC, RBC, bacteria, casts, and other formed elements. Only those elements seen were reported. REFLEXIVE URINE CULTURE (Not yet reviewed by provider) Interpretation: Performing Lab:[place] [address] [address]ing [address] Notes/Report: SPLIT 09/23/2023 FROM [id number] REFLEXIVE URINE CULTURE NO C ULTURE INDICATED BASIC METABOLIC PANEL (Not y et reviewed by provider) Interpretation: Performing Lab:Rowan HERNANDEZ LenexaKS[address] Osmel Kebede MD Notes/Report: GLUCOSE 120 65-99 mg/dL Fasting reference interval For someone without known diabetes, a glucose value between 100 and 125 mg/dL is consistent with prediabetes and should be confirmed with a follow-up test. UREA NITROGEN (BUN) 6 7-25 mg/dL CREATININE 0.86 0.70-1.35 mg/dL EGFR 98 > OR = 60 mL/min/1.73m2 BUN/CREATININE RATIO 7 6-22 (calc) SODIUM 136 135-146 mmol/L POTASSIUM 4.5 3.5-5.3 mmol/L CHLORIDE 100 98-110 mmol/L CARBON DIOXIDE 26 20-32 mmol/L CALCIUM 8.9 8.6-10.3 mg/dL CBC (INCLUDES DIFF/PLT) (Not yet reviewed by provider) Interpretation: Performing Lab:[facility] [facility]-Twfbyy61321 Vaibhav [id number] Osmel Kebede MD Notes/Report: WHITE BLOOD CELL COUNT 6.8 3.8-10.8 Thousand/ uL RED BLOOD CELL COUNT 4.57 4.20-5.80 Million/uL HEMOGLOBIN 13.0 13.2-17.1 g/dL HEMATOCRIT 40.4 38.5-50.0 % MCV 88.4 80.0-100.0 fL MCH 28.4 27.0-33.0 pg MCHC 32.2 32.0-36.0 g/dL RDW 13.3 11.0-15.0 % PLATELET COUNT 401 140-400 Thousand/uL MPV 11.9 7.5-12.5 fL ABSOLUTE NEUTROPHILS 4372 0416-6763 cells/uL ABSOLUTE LYMPHOCYTES 2930 961-0030 cells/uL ABSOLUTE MONOCYTES 673 200-950 cells/uL ABSOLUTE EOSINOPHILS 299 15-500 cells/uL ABSOLUTE BASOPHILS 41 0-200 cells/uL NEUTROPHILS 64.3 LYMPHOCYTES 20.8 MONOCYTES 9.9 EOSINOPHILS 4.4 BASOPHILS 0.6 BASIC METABOLIC PANEL (Not y et reviewed by provider) Interpretation: Performing Lab:[facility]-Jjukak30691 Marilee Calero [id number] Osmel Kebede MD Notes/Report: GLUCOSE 86 65-99 mg/dL Fasting reference interval UREA NITROGEN (BUN) 7 7-25 mg/dL CREATININE 0.89 0.70-1.35 mg/dL EGFR 97 > OR = 60 mL/min/1.73m2 BUN/CREATININE RATIO SEE NOTE: 6-22 (calc) Not Reported: BUN and Creatinine are within reference range. SODIUM 136 135-146 mmol/L POTASSIUM 4.1 3.5-5.3 mmol/L CHLORIDE 103 98-110 mmol/L CARBON DIOXIDE 26 20-32 mmol/L CALCIUM 8.8 8.6-10.3 mg/dL CBC (INCLUDES DIFF/PLT) (Not yet reviewed by provider) Interpretation: Performing Lab:MARY [facility]-Jgbtei04550 Marilee Calero, KdvxlbFQ[address] Osmel Kebede MD Notes/Report: WHITE BLOOD CELL COUNT 7.5 3.8-10.8 Thousand/ uL RED BLOOD CELL COUNT 4.35 4.20-5.80 Million/uL HEMOGLOBIN 11.6 13.2-17.1 g/dL HEMATOCRIT 36.4 38.5-50.0 % MCV 83.7 80.0-100.0 fL MCH 26.7 27.0-33.0 pg MCHC 31.9 32.0-36.0 g/dL For adults, a slight decrease in the calculated MCHC value (in the range of 30 to 32 g/dL) is most likely not clinically significant; however, it should be interpreted with caution in correlation with other red cell parameters and the patient's clinical condition. RDW 15.7 11.0-15.0 % PLATELET COUNT 421 140-400 Thousand/uL MPV 11.2 7.5-12.5 fL ABSOLUTE NEUTROPHILS 4875 3254-7439 cells/uL ABSOLUTE LYMPHOCYTES 0507 601-1905 cells/uL ABSOLUTE MONOCYTES 900 200-950 cells/uL ABSOLUTE EOSINOPHILS 210 15-500 cells/uL ABSOLUTE BASOPHILS 53 0-200 cells/uL NEUTROPHILS 65 LYMPHOCYTES 19.5 MONOCYTES 12.0 EOSINOPHILS 2.8 BASOPHILS 0.7 COMPREHENSIVE METABOLIC PANE L (Not yet reviewed by provider) Interpretation: Performing Lab:MARY [facility]-Gydvvc83542 Marilee Calero, [id number] Osmel Kebede MD Notes/Report: GLUCOSE 94 65-99 mg/dL Fasting reference interval UREA NITROGEN (BUN) 10 7-25 mg/dL CREATININE 0.81 0.70-1.35 mg/dL EGFR 100 > OR = 60 mL/min/1.73m2 BUN/CREATININE RATIO SEE NOTE: 6 (calc) Not Reported: BUN and Creatinine are within reference range. SODIUM 136 135-146 mmol/L POTASSIUM 4.4 3.5-5.3 mmol/L CHLORIDE 101 98-110 mmol/L CARBON DIOXIDE 29 20-32 mmol/L CALCIUM 9.1 8.6-10.3 mg/dL PROTEIN, TOTAL 6.4 6.1-8.1 g/dL ALBUMIN 4.1 3.6-5.1 g/dL GLOBULIN 2.3 1.9-3.7 g/dL (calc) ALBUMIN/GLOBULIN RATIO 1.8 1.0-2.5 (calc) BILIRUBIN, TOTAL 0.2 0.2-1.2 mg/dL ALKALINE PHOSPHATASE 54 35-144 U/L AST 6 10-35 U/L ALT 8 9-46 U/L CBC (INCLUDES DIFF/PLT) (Not yet reviewed by provider) Interpretation: Performing Lab:MARY, [facility]-Cerppw01609 Marilee Calero, WmrhkxHH[address] Osmel Kebede MD Notes/Report: WHITE BLOOD CELL COUNT 6.5 3.8-10.8 Thousand/ uL RED BLOOD CELL COUNT 4.50 4.20-5.80 Million/uL HEMOGLOBIN 10.4 13.2-17.1 g/dL HEMATOCRIT 35.3 38.5-50.0 % MCV 78.4 80.0-100.0 fL MCH 23.1 27.0-33.0 pg MCHC 29.5 32.0-36.0 g/dL For adults, a slight decrease in the calculated MCHC value (in the range of 30 to 32 g/dL) is most likely not clinically significant; however, it should be interpreted with caution in correlation with other red cell parameters and the patient's clinical condition. RDW 17.2 11.0-15.0 % PLATELET COUNT 513 140-400 Thousand/uL MPV 10.6 7.5-12.5 fL ABSOLUTE NEUTROPHILS 3582 7721-3351 cells/uL ABSOLUTE LYMPHOCYTES 1280 069-8882 cells/uL ABSOLUTE MONOCYTES 728 200-950 cells/uL ABSOLUTE EOSINOPHILS 150 15-500 cells/uL ABSOLUTE BASOPHILS 59 0-200 cells/uL NEUTROPHILS 55.1 LYMPHOCYTES 30.5 MONOCYTES 11.2 EOSINOPHILS 2.3 BASOPHILS 0.9 Reason For Referral No Information Medications Medication SIG (Take, Route, Frequency, Duration) Notes Start Date End Date Status cloNIDine HCl 0.1 MG 1 tablet Orally Twi ce a day Active Omeprazole 40 MG 1 capsule 30 minutes before morning meal Orally Once a day for 30 day(s) Active Inderal LA 80 MG 1 capsule Orally Onc e a day Active Latanoprost 0.005 % 1 drop into affected eye in the evening Ophthalmic Once a day Active Famotidine 20 MG TAKE 1 TABLET BY ODALIS DAILY AT BEDTIME for 90 Active HYDROcodone-Acetaminophen 5-325 MG 1 tablet Orally every 8 hrs for 14 days As needed 09/05/2024 Active Amitriptyline HCl 10 MG 1 tablet at bedt trini Orally Once a day Active Triamcinolone Acetonide 0.1 % 1 application Externally Twice a day As needed Active Wellbutrin XL 300 MG 1 tablet in the mor sandor Orally Once a day for 30 day(s) Active Dupixent 300 MG/2ML 1 injection Subcutan eous Every 2 week Active EpiPen Active Social History Tobacco Use: Social History Observation Description Date Details (start date - stop date) Never Smoker NA - NA Tobacco Use/Smoking Question Answer Notes Are you a nonsmoker Alcohol Screen (Audit-C) Question Answer Notes Did you have a drink containing alcohol in the p ast year? No Points 0 Interpretation Negative Problems Problem Type SNOMED Code ICD Code Onset Dates Problem Status W/U Status Risk Notes Problem 0351232 Primary insomnia (F51.01) Active confirmed Problem 587205334 Chronic pain syndrome (G89.4) Active confirmed Problem 62357970 Cervicalgia (M54.2) Active confirmed Problem Weakness (77187592) Weakness (R53.1) Active confirmed Problem Hyperlipidemia (75440778) Hyperlipidemia (E78.5) Active confirmed Problem 39605100 Hyperglycemia (R73.9) Active confirmed Problem 746816296 Gastroesophageal reflux disease without esophagitis (K21.9) Active confirmed Problem Rash (395486910) Rash (R21) Active confirmed Problem Neck pain (99906104) Neck pain (M54.2) Active confirmed Problem Anemia (007628853) Anemia (D64.9) Active confirmed Problem 150283515 Lumbar spondylos is (M47.816) Active confirmed Problem Cervical spondylosis (490472466) Cervical spondylosis (M47.812) Active confirmed Problem 253907551 Other specified postprocedural states (Z98.890) Active confirmed Problem Localized, primary osteoarthritis of the shoulder region (248109616) OA (osteoarthritis) of shoulder (M19.019) Active confirmed Problem Right shoulder pain (8648757005) Right shoulder pain (M25.511) Active confirmed Problem Nausea and vomiting (65287227) Nausea & vomiting (R11.2) Active confirmed Problem Eczema (90085526) Eczema (L30.9) Active confirm ed Problem 662065258 History of neck injury (Z87.828) Active confirmed Problem 83240986 Glaucoma of both eyes, unspecified glaucoma type (H40.9) Active confirmed Problem 890681334 Adult ADHD (F90.9) Active confirmed Problem 815073904 Tardive dyskines ia (G24.01) Active confirmed Problem 295214264 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) Active confirmed Vital Signs Heart Rate 80 /min 09/05/2024 ple Temperature 97.4 degrees Fahrenheit 09/05/2024 ple Respiratory Rate 16 /min 09/05/2024 ple Oximetry 96 % 09/05/2024 ple Blood pressure diastolic 74 mm Hg 09/05/2024 ple Height 71 in 09/05/2024 ple Blood pressure systolic 122 mm Hg 09/05/2024 ple Weight 154 lbs 09/05/2024 ple BMI 21.48 kg/m2 09/05/2024 ple Encounters Encounter Location Date Provider Diagnosis [place] [address] [address] 09/16/2023 Judd Lazaro History of neck inju ry Z87.828 ; Cervicalgia M54.2 ; Other specified postprocedural states Z98.890 ; Adult ADHD F90.9 ; Tardive dyskinesia G24.01 ; Chronic pain syndrome G89.4 ; Gastroesophageal reflux disease without esophagitis K21.9 and Lumbar spondylosis M47.816 [facility] [address] [address] 09/28/2023 Judd Lazaro Other hyperlipidemia E78.49 ; Hyperglycemia R73.9 ; Cervicalgia M54.2 ; Adult ADHD F90.9 ; Tardive dyskinesia G24.01 ; Chronic pain syndrome G89.4 ; Gastroesophageal reflux disease without esophagitis K21.9 and Lumbar spondylosis M47.816 [facility] [address] [address] 10/12/2023 Judd Lazaro Other hyperlipidemia E78.49 ; Hyperglycemia R73.9 ; Gastroesophageal reflux disease without esophagitis K21.9 ; Tardive dyskinesia G24.01 ; Adult ADHD F90.9 ; Glaucoma of both eyes, unspecified glaucoma type H40.9 and Chronic pain syndrome G89.4 [facility] [address] [address] 10/26/2023 Judd Lazaro Other hyperlipidemia E78.49 ; Gastroesophageal reflux disease without esophagitis K21.9 ; Hyperglycemia R73.9 ; Tardive dyskinesia G24.01 ; Cervicalgia M54.2 and Chronic pain syndrome G89.4 [facility] [address] [address] 11/09/2023 Judd Lazaro Other hyperlipidemia E78.49 ; Gastroesophageal reflux disease without esophagitis K21.9 ; Lumbar spondylosis M47.816 ; Cervicalgia M54.2 ; Chronic pain syndrome G89.4 and Rash R21 [facility] [address] [address] 11/23/2023 Judd Lazaro Other hyperlipidemia E78.49 ; Gastroesophageal reflux disease without esophagitis K21.9 ; Adult ADHD F90.9 ; Tardive dyskinesia G24.01 ; Lumbar spondylosis M47.816 and Chronic pain syndrome G89.4 [facility] [address] [address] 12/07/2023 Judd Lazaro Other hyperlipidemia E78.49 ; Gastroesophageal reflux disease without esophagitis K21.9 ; Lumbar spondylosis M47.816 and Chronic pain syndrome G89.4 [facility] [address] [address] 12/24/2023 Judd Lazaro Other hyperlipidemia E78.49 ; Gastroesophageal reflux disease without esophagitis K21.9 ; Hyperglycemia R73.9 ; Adult ADHD F90.9 ; Primary insomnia F51.01 and Chronic pain syndrome G89.4 [facility] [address] [address] 01/06/2024 Judd Lazaro Gastroesophageal ref lux disease without esophagitis K21.9 ; Hyperglycemia R73.9 ; Adult ADHD F90.9 ; Lumbar spondylosis M47.816 and Chronic pain syndrome G89.4 [facility] [address] [address] 01/20/2024 Judd Lazaro Rash R21 ; Gastroesophageal reflux disease without esophagitis K21.9 ; Hyperglycemia R73.9 ; Adult ADHD F90.9 and Other hyperlipidemia E78.49 [place] [address] [place] [phone] 02/03/2024 Judd Lazaro Rash R21 ; Other hyperlipidemia E78.49 ; Gastroesophageal reflux disease without esophagitis K21.9 ; Adult ADHD F90.9 and Lumbar spondylosis M47.816 [place] [address] [address] 02/15/2024 Judd Lazaro Eczema L30.9 ; Other hyperlipidemia E78.49 ; Gastroesophageal reflux disease without esophagitis K21.9 ; Adult ADHD F90.9 ; Tardive dyskinesia G24.01 and Lumbar spondylosis M47.816 [place] [address] [address] 03/08/2024 Judd Lazaro Other hyperlipidemia E78.49 ; Gastroesophageal reflux disease without esophagitis K21.9 ; Cervicalgia M54.2 ; Chronic pain syndrome G89.4 and Acquired fusion of cervical spine M43.22 [place] [address] [address] 03/23/2024 Judd Lazaro Gastroesophageal ref lux disease without esophagitis K21.9 ; Other hyperlipidemia E78.49 ; Adult ADHD F90.9 ; Tardive dyskinesia G24.01 and Chronic pain syndrome G89.4 [facility] [address] [place] [phone] 04/06/2024 Judd Lazaro Gastroesophageal ref lux disease without esophagitis K21.9 ; Other hyperlipidemia E78.49 ; Hyperglycemia R73.9 ; Tardive dyskinesia G24.01 and Chronic pain syndrome G89.4 [facility] [address] [address] 05/05/2024 Judd Lazaro Other hyperlipidemia E78.49 ; Gastroesophageal reflux disease without esophagitis K21.9 ; Hyperglycemia R73.9 ; Adult ADHD F90.9 ; Tardive dyskinesia G24.01 and Chronic pain syndrome G89.4 [facility] [address] [address] 05/30/2024 Judd Lazaro Right shoulder pain M25.511 ; Other hyperlipidemia E78.49 ; Gastroesophageal reflux disease without esophagitis K21.9 ; Hyperglycemia R73.9 and Adult ADHD F90.9 [facility] [address] [place] [phone] 06/13/2024 Judd Lazaro Neck pain M54.2 ; Ri ght shoulder pain M25.511 ; Other hyperlipidemia E78.49 ; Gastroesophageal reflux disease without esophagitis K21.9 ; Tardive dyskinesia G24.01 and Adult ADHD F90.9 [facility] [address] [address] 07/07/2024 Judd Lazrao Neck pain M54.2 ; Ri ght shoulder pain M25.511 ; Other hyperlipidemia E78.49 ; Gastroesophageal reflux disease without esophagitis K21.9 ; Hyperglycemia R73.9 and Lumbar spondylosis M47.816 [facility] [address] [address] 07/26/2024 Judd Lazaro Cervical spondylosis M47.812 ; OA (osteoarthritis) of shoulder M19.019 ; Nausea & vomiting R11.2 ; Gastroesophageal reflux disease without esophagitis K21.9 and Weakness R53.1 [facility] [address] [address] 08/09/2024 Judd Lazaro Hyperlipidemia E78.5 ; Gastroesophageal reflux disease without esophagitis K21.9 ; Neck pain M54.2 ; Cervical spondylosis M47.812 and Weakness R53.1 [facility] [address] [address] 08/23/2024 Judd Lazaro Hyperlipidemia E78.5 ; Gastroesophageal reflux disease without esophagitis K21.9 ; Hyperglycemia R73.9 ; Adult ADHD F90.9 ; Tardive dyskinesia G24.01 ; Neck pain M54.2 and Anemia D64.9 [facility] [address] [address] 09/05/2024 Judd Lazaro Gastroesophageal ref lux disease without esophagitis K21.9 ; Hyperlipidemia E78.5 ; Cervical spondylosis M47.812 ; Neck pain M54.2 ; OA (osteoarthritis) of shoulder M19.019 and Chronic pain syndrome G89.4 [facility] [address] [address] 09/28/20[facility] [address] [address] [facility] [address] [address] 2023 [facility] [address] [address] [address] 10/27/2023 [facility] [address] [facility] 2 [place] [address] 11/09/2023 Judd [facility] [address] [address] 11/23/2023 Judd [facility] [address] [address] 12/07/2023 Judd [facility] [address] [address] 12/24/2023 [facility] [address] [address] 01/06/2024 Judd [facility] [address] [place] [address] 01/20/2024 Judd [facility] [address] [place] [address] 02/03/2024 Judd [facility] [address] [facility] 2 [place] [address] 02/15/2024 Judd [facility] [address] [facility] 2 [place] [address] 03/08/2024 Judd [facility] [address] [facility] 2 [place] [address] 03/23/2024 Judd [facility] [address] [facility] 2 [place] [address] 04/06/2024 [facility] [address] [facility] 2 [place] [address] 05/05/2024 Judd [facility] [address] [facility] 2 [place] [address] 05/30/2024 [facility] [address] [address] 06/13/2024 Judd [facility] [address] [facility] 2 [place] [address] 07/07/2024 Judd [facility] [address] [facility] 2 [place] [address] 07/26/2024 Judd [facility] [address] [facility] 2 [place] [address] 08/09/2024 Judd [facility] [address] [facility] 2 [place] [address] 08/23/2024 Judd [facility] [address] [facility] 2 [place] [address] 09/05/2024 Judd Lazaro Assessments Encounter Date Diagnosis (ICD Code) Assessment Notes Treatment Notes Treatment Clinical Notes Section Notes 09/16/2023 Cervicalgia (ICD-10 - M54.2) Neck Pain: Care Instructions material was printed 09/16/2023 History of neck injury (ICD-10 - Z87.828) 09/28/2023 Other hyperlipidemia (ICD-10 - E78.49) High Cholesterol: Care Instructions material was printed 09/28/2023 Hyperglycemia (ICD-10 - R73.9) 10/12/2023 Other hyperlipidemia (ICD-10 - E78.49) High Cholesterol: Care Instructions material was printed 10/26/2023 Other hyperlipidemia (ICD-10 - E78.49) 11/09/2023 Other hyperlipidemia (ICD-10 - E78.49) High Cholesterol: Care Instructions material was printed 11/23/2023 Other hyperlipidemia (ICD-10 - E78.49) High Cholesterol: Care Instructions material was printed 12/07/2023 Other hyperlipidemia (ICD-10 - E78.49) High Cholesterol: Care Instructions material was printed 12/24/2023 Gastroesophageal reflux disease without esophagitis (ICD-10 - K21.9) 12/24/2023 Other hyperlipidemia (ICD-10 - E78.49) High Cholesterol: Care Instructions material was printed 01/06/2024 Gastroesophageal reflux disease without esophagitis (ICD-10 - K21.9) Gastroesophageal Reflux Disease (GERD): Care Instructions material was printed 01/20/2024 Rash (ICD-10 - R21) Rash: Ca re Instructions material was printed 02/03/2024 Rash (ICD-10 - R21) Rash: Ca re Instructions material was printed 02/15/2024 Eczema (ICD-10 - L30.9) Eczema: Care Instructions material was printed 03/08/2024 Gastroesophageal reflux disease without esophagitis (ICD-10 - K21.9) 03/08/2024 Other hyperlipidemia (ICD-10 - E78.49) High Cholesterol: Care Instructions material was printed 03/23/2024 Gastroesophageal reflux disease without esophagitis (ICD-10 - K21.9) Gastroesophageal Reflux Disease (GERD): Care Instructions material was printed 04/06/2024 Gastroesophageal reflux disease without esophagitis (ICD-10 - K21.9) Gastroesophageal Reflux Disease (GERD): Care Instructions material was printed 05/05/2024 Other hyperlipidemia (ICD-10 - E78.49) High Cholesterol: Care Instructions material was printed 05/30/2024 Right shoulder pain (ICD-10 - M25.511) 06/13/2024 Neck pain (ICD-10 - M54.2) Neck Pain: Care Instructions material was printed 07/07/2024 Neck pain (ICD-10 - M54.2) 07/26/2024 Cervical spondylosis (ICD-10 - M47.812) 08/09/2024 Hyperlipidemia (ICD-10 - E78.5) High Cholesterol: Care Instructions material was printed 08/23/2024 Hyperlipidemia (ICD-10 - E78.5) High Cholesterol: Care Instructions material was printed 08/23/2024 Gastroesophageal reflux disease without esophagitis (ICD-10 - K21.9) 09/05/2024 Hyperlipidemia (ICD-10 - E78.5) 09/05/2024 Gastroesophageal reflux disease without esophagitis (ICD-10 - K21.9) Gastroesophageal Reflux Disease (GERD): Care Instructions material was printed 08/23/2024 Hyperglycemia (ICD-10 - R73.9) 09/05/2024 Cervical spondylosis (ICD-10 - M47.812) 08/09/2024 Gastroesophageal reflux disease without esophagitis (ICD-10 - K21.9) 07/26/2024 OA (osteoarthritis) of shoulder (ICD-10 - M19.019) Arthritis: Care Instructions material was printed 07/07/2024 Right shoulder pain (ICD-10 - M25.511) 06/13/2024 Right shoulder pain (ICD-10 - M25.511) 05/30/2024 Other hyperlipidemia (ICD-10 - E78.49) 05/05/2024 Gastroesophageal reflux disease without esophagitis (ICD-10 - K21.9) 03/08/2024 Cervicalgia (ICD-10 - M54.2) 04/06/2024 Other hyperlipidemia (ICD-10 - E78.49) 03/23/2024 Other hyperlipidemia (ICD-10 - E78.49) 02/15/2024 Other hyperlipidemia (ICD-10 - E78.49) 02/03/2024 Other hyperlipidemia (ICD-10 - E78.49) 01/06/2024 Hyperglycemia (ICD-10 - R73.9) 01/20/2024 Gastroesophageal reflux disease without esophagitis (ICD-10 - K21.9) 12/24/2023 Hyperglycemia (ICD-10 - R73.9) 11/23/2023 Gastroesophageal reflux disease without esophagitis (ICD-10 - K21.9) 12/07/2023 Gastroesophageal reflux disease without esophagitis (ICD-10 - K21.9) 11/09/2023 Gastroesophageal reflux disease without esophagitis (ICD-10 - K21.9) 10/26/2023 Gastroesophageal reflux disease without esophagitis (ICD-10 - K21.9) Gastroesophageal Reflux Disease (GERD): Care Instructions material was printed 09/28/2023 Cervicalgia (ICD-10 - M54.2) 10/12/2023 Hyperglycemia (ICD-10 - R73.9) 09/16/2023 Other specified postprocedural states (ICD-10 - Z98.890) 09/16/2023 Adult ADHD (ICD-10 - F90.9) 10/12/2023 Gastroesophageal reflux disease without esophagitis (ICD-10 - K21.9) 09/28/2023 Adult ADHD (ICD-10 - F90.9) 10/26/2023 Hyperglycemia (ICD-10 - R73.9) 12/07/2023 Lumbar spondylosis (ICD-10 - M47.816) 11/23/2023 Adult ADHD (ICD-10 - F90.9) 11/09/2023 Lumbar spondylosis (ICD-10 - M47.816) 12/24/2023 Adult ADHD (ICD-10 - F90.9) 01/06/2024 Adult ADHD (ICD-10 - F90.9) 01/20/2024 Hyperglycemia (ICD-10 - R73.9) 02/15/2024 Gastroesophageal reflux disease without esophagitis (ICD-10 - K21.9) 02/03/2024 Gastroesophageal reflux disease without esophagitis (ICD-10 - K21.9) 03/23/2024 Adult ADHD (ICD-10 - F90.9) 03/08/2024 Chronic pain syn [id number]|2024-09-06 00:40:00|2024-09-06 00:39:00|XMS_ITS|BKG DAEMON|External Medical Summaries|[id number]|" Encounter Summary Created on: September 06, 2024 Gustabo Rivera Zen : 1960 Sex: Male Author Organization [facility] Address [address] [place] [address] Care Team Providers Care Assemblyman Or Woman Name Role Phone Leroy Caballero MD Primary Care Provider [phone] Encounter Details Date Type Department Care Team (Latest Contact Info) Description 01/12/2018 Abstract [facility] Carl Mas MD Social History Tobacco Use Types Packs/Day [...] on filedocumented in this encounter Care Teams Assemblyman Or Woman Relationship Specialty Start Date End Date Leroy Caballero MD [address] [place] [address] PCP - General 11/29/15 documented as of this encounter "
--- OUTSIDE RECORDS SUMMARY | 2024-09-06 00:40 | XMS_ITS | Referral Summary ---
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
--- OUTSIDE RECORDS SUMMARY | 2024-09-06 00:40 | XMS_ITS | Clinical Summary ---
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
--- OUTSIDE RECORDS SUMMARY | 2024-09-06 00:40 | XMS_ITS | Clinical Summary ---
Author Organization [facility] Address [address] [place] [address] Care Team Providers Care Reaming Press Operator Name Role Phone Leroy Caballero MD Primary Care Provider [phone] Encounters Date Type Department Care Team Description [...] Comments Blood Pressure 125/84 06/24/2017 12:31 PM PAWN BROKER Pulse 72 06/24/2017 12:31 PM PAWN BROKER Temperature - - Respiratory Rate - - Oxygen Saturation - - Inhaled Oxygen Concentration - - Weight 80.3 kg (177 lb) 06/24/2017 12:31 PM PAWN BROKER Height 181.6 cm (5' 11.5 ) 06/24/2017 12:[address] Body Mass Index 24.34 06/24/2017 12:31 PM PAWN BROKER Plan of Treatment Health Maintenance Due Date Last Done Comments Colorectal Cancer Screening Colonoscopy (10 Years) 1960 Annual Physical 1964 Hepatitis C 10/14/1979 DTaP, Tdap and Td Vaccines ( 1 - Tdap) 1980 Pneumococcal Vaccine: 50+ Ye ars (1 of 1 - PCV) 10/14/2011 Zoster Vaccines (1 of 2) 10/14/2011 COVID-19 Vaccine ( - 2023-2 5 season) 2023 RSV Immunization or 60+ Years (1 - [...] age to complete this topic Care Teams Reaming Press Operator Relationship Specialty Start Date End Date Leroy Caballero MD [address] [place] [address] PCP - General 11/29/15
[2024-09-06 09:12] VITALS: BP 120/96; PULSE 79; RESP 18; TEMP 36.3; O2SAT 100; BMI 21.3
[2024-09-06] MEDS: LACTATED RINGERS 1,000 ML 150 ML IV CONT (09:25)
--- NOTE | 2024-09-06 09:26 | SUR.PREOP ---
Patient reports brown like stools. Took all of prep as instructed. Dr. Carlisle notified.
--- NOTE | 2024-09-06 09:31 | WPDANESEPPF ---
Anes - Initial Pre Proc Eval Procedure: Operation Date: 09/06/24 10:30 Proposed Procedures p Screening Colonoscopy - Shady Carlisle MD Date/Time: 09/06/24 09:31 Surgeon: Shady Carlisle MD Pre Op Diagnosis: screening colon Patient Data Age: 63 Gender: M Height: 1.8 m Weight: 69.4 kg Last Vital Signs Temp 36.3 C L 09/06/24 09:12 Pulse 79 09/06/24 09:12 Resp 18 09/06/24 09:12 BP 120/96 H 09/06/24 09:12 Pulse Ox 100 09/06/24 09:12 O2 Del Method Room Air 09/06/24 09:12 Allergies Allergy/AdvReac Type Severity Reaction Status Date / Time iodine Allergy Mild HIVES Verified 09/06/24 09:11 diphenhydramine Allergy Unknown HIVES Verified 09/06/24 09:11 Home Medications Medication Instructions Recorded Confirmed Type amitriptyline 25 mg tablet 25 mg PO QHS 08/29/24 09/06/24 History bupropion HCl 300 mg 24 hr tablet, 300 mg PO DAILY 08/29/24 09/06/24 History extended release clonazepam 0.5 mg tablet 0.5 mg PO BID PRN anxiety 08/29/24 08/29/24 History clonidine HCl 0.1 mg tablet 0.1 mg PO TID 08/29/24 09/06/24 History latanoprost 0.005 % eye drops 1 drp EACH EYE DAILY 08/29/24 09/06/24 History olanzapine 2.5 mg tablet 2.5 mg PO QPM 08/29/24 09/06/24 History propranolol 80 mg capsule,24 80 mg PO Q24H 08/29/24 09/06/24 History hr,extended release tamsulosin 0.4 mg capsule 0.4 mg PO Q24H 08/29/24 09/06/24 History Patient hx anesthesia problems: none Family hx anesthesia problems: none Results Review: All pre-operative results and documents have been reviewed as part of the pre-operative evaluation. [facility] Past Medical History Medical History (Updated 09/05/24 @ 14:52 by Dave Tom DO) Colon perforation Bipolar disorder Social History Social History Smoking status: Never smoker Alcohol intake: never Substance use type: does not use Living arrangements: alone Spiritual care concerns: No Anes - Eval Final PreProcedure Day of Procedure 09/06/24 09:31 Patient weight: normal Heart: regular rate and rhythm Lungs: clear to auscultation and normal air movement Airway: Mallampati scale class II Neurological: alert and oriented Last oral intake: >/= 8 hours ASA classification: III Emergent: no Anesthetic plan: proceed Anesthesia type and monitoring: general GIVS and standard monitoring Results Review: All pre-operative results and documents have been reviewed as part of the pre-operative evaluation. Informed Consent: The patient's anesthetic plan and its attendant risks and benefits were discussed with the patient/family/POA. Questions were solicited and answers provided to the satisfaction of the patient/family/POA.
--- NOTE | 2024-09-06 10:16 | PM.IMHP ---
H&P: HPI History of Present Illness Date/Time: 09/06/24 10:16 Chief Complaint: Screening colonoscopy Narrative: This is the patient's 2nd colonoscopy. There are no GI symptoms and there is no family history of colorectal cancer. Review of Systems Review of Systems: All systems reviewed & are unremarkable except as noted in HPI and below [facility] Past Medical History Medical History (Updated 09/06/24 @ 10:16 by Shady Carlisle MD) Colon perforation Bipolar disorder Social History Social History Smoking status: Never smoker Alcohol intake: never Substance use type: does not use Living arrangements: alone Spiritual care concerns: No Meds Home Medications and Allergies Home Medications Medication Instructions Recorded Confirmed Type amitriptyline 25 mg tablet 25 mg PO QHS 08/29/24 09/06/24 History bupropion HCl 300 mg 24 hr tablet, 300 mg PO DAILY 08/29/24 09/06/24 History extended release clonazepam 0.5 mg tablet 0.5 mg PO BID PRN anxiety 08/29/24 08/29/24 History clonidine HCl 0.1 mg tablet 0.1 mg PO TID 08/29/24 09/06/24 History latanoprost 0.005 % eye drops 1 drp EACH EYE DAILY 08/29/24 09/06/24 History olanzapine 2.5 mg tablet 2.5 mg PO QPM 08/29/24 09/06/24 History propranolol 80 mg capsule,24 80 mg PO Q24H 08/29/24 09/06/24 History hr,extended release tamsulosin 0.4 mg capsule 0.4 mg PO Q24H 08/29/24 09/06/24 History Allergies Allergy/AdvReac Type Severity Reaction Status Date / Time iodine Allergy Mild HIVES Verified 09/06/24 09:11 diphenhydramine Allergy Unknown HIVES Verified 09/06/24 09:11 Vital Signs Vital Signs - 24 hr 09/06/24 09:12 Temperature 97.4 F L Pulse Rate 79 Respiratory Rate 18 Blood Pressure 120/96 H Pulse Oximetry 100 Oxygen Delivery Room Air Exam Const: General: cooperative and healthy appearing Resp: Effort & Inspection: normal respiratory effort and able to speak in complete sentences Auscultation: clear to auscultation bilaterally Cardio: Rate: regular rate Rhythm: regular rhythm GI: Inspection: normal to inspection GI Palp: No No hepatosplenomegaly present Auscultation: normal bowel sounds Rectal Exam: deferred Skin: General skin exam: normal color Psych: Appearance: grossly normal Mental Status: mental status grossly normal Assessment and Plan Assessment and plan (1) Encounter for screening colonoscopy: Code(s): Z12.11 - Encounter for screening for malignant neoplasm of colon Status: Acute Assessment and Plan: The patient is deemed a good candidate for the procedure. Consent signed. Will proceed.
[2024-09-06 10:40] VITALS: BP 89/58; PULSE 67; RESP 20; O2SAT 100
[2024-09-06 10:50] VITALS: BP 104/70; PULSE 81; RESP 22; O2SAT 100
[2024-09-06 11:00] VITALS: BP 105/61; PULSE 82; RESP 21; O2SAT 100
== END 2024-09-06 11:10 | disposition home or self-care (01) ==
PROVIDERS: PCP Internal Medicine; Referring Provider Internal Medicine; Visit Provider Internal Medicine Gastroenterology
PROC: 0DJD8ZZ Inspection of Lower Intestinal Tract, Via Natural or Artificial Opening Endoscopic (ICD-10-PCS; CPT 45378; principal; 2024-09-06 10:30)
DX: Z12.11 Encounter for screening for malignant neoplasm of colon (principal)
CPT/HCPCS: 45378; J7120

== ENCOUNTER 2025-02-28 13:55 | Outpatient (CLI) | payer OTHER, SELFPAY ==
--- OUTSIDE RECORDS SUMMARY | 2024-11-28 05:00 | XMS_ITS ---
Author Organization [facility] Address [address] [facility] [address] [place] [address] Care Team Providers Care Military Analyst Name Role Phone Judd Lazaro Primary Care Provider [phone] Encounters Encounter Location Date Provider Diagnosis [facility] [address] [facility] [address] [place] [address] 11/28/2024 Judd Lazaro Plan Of Treatment Next Appt Details Provider Name:Judd mann, 03/09/2025 02:15:00 PM, [address] [facility], [address], [place], [address], Progress Notes * Gustabo RIVERADOB:1960 (64 yo M)Acc No.[id number]:11/28/2024 Progress Notes Patient: Gustabo CHRISTINE Provider: Umang Lazaro M.D. :1960 A ge:64 Y S ex:Male Date:11/28/2024 Address:[address] [place], [place] [id number] Subjective: * Chief Complaints: * * Medical History: Objective: * Vitals: Assessment: Plan: * Treatment: * * Electronic signature of Minerva Lazaro MD on 02/28/2025 at 03:04 PM EST Sign off status: Pending * Provider: Umang Lazaro M.D. Date: 0 11/28/2024 Generated for Sarahi christine/Fadane/eTransmitting on: 1 04/30/2024 03:04 PM EST
--- OUTSIDE RECORDS SUMMARY | 2024-12-02 03:30 | XMS_ITS ---
Author Organization [facility] Address [address] [address] Care Team Providers Care Glue Reel Operator Name Role Phone Judd Lazaro Primary Care Provider Allergies Allergen (clinical drug ingredient) Drug/Non Drug Allergy documented on EMR Reaction Allergy Type Onset Date Status diphenhydramine Benadryl hives Drug Allergy A ctive REASON FOR VISIT Pain med eval/refill Medications Medication SIG (Take, Route, Frequency, Duration) Notes Start Date End Date Status Amitriptyline HCl 10 MG 1 tablet at bedt trini Orally Once a day Active Latanoprost 0.005 % 1 drop into affected eye in the evening Ophthalmic Once a day Active Inderal LA 80 MG 1 capsule Orally Onc e a day Active Triamcinolone Acetonide 0.1 % 1 application Externally Twice a day As needed Active Wellbutrin XL 300 MG 1 tablet in the mor sandor Orally Once a day; Duration: 30 day(s) Active Famotidine 20 MG TAKE 1 TABLET BY DAILY AT BEDTIME; Duration: 90 Active HYDROcodone-Acetaminophen 5-325 MG 1 tablet Orally every 8 hrs; Duration: 14 days As needed 11/14/2024 Active cloNIDine HCl 0.1 MG 1 tablet Orally Twi ce a day Active Omeprazole 40 MG 1 capsule 30 minutes before morning meal Orally Once a day; Duration: 30 day(s) Active Social History Tobacco Use: Social History Observation Description Date Details (start date - stop date) Never Smoker NA - NA Tobacco Use/Smoking Question Answer Notes Are you a nonsmoker Alcohol Screen (Audit-C) Question Answer Notes Did you have a drink containing alcohol in the p ast year? No Points 0 Interpretation Negative Vital Signs Temperature 98.0 degrees Fahrenheit 12/03/19 25 Blood pressure systolic 104 mm Hg 12/03/19 25 Blood pressure diastolic 58 mm Hg 025 Heart Rate 88 /min 12/02/2024 Respiratory Rate 16 /min 12/02/2024 Height 71 in 12/02/2024 Weight 157 lbs 12/02/2024 BMI 21.89 kg/m2 12/02/2024 Oximetry 97 % 12/02/2024 ple Encounters Encounter Location Date Provider Diagnosis [facility] [address] [facility] [address] [place] [address] 12/02/2024 Judd Lazaro Hyperlipidemia E78.5 ; Gastroesophageal reflux disease without esophagitis K21.9 ; Adult ADHD F90.9 ; Lumbar spondylosis M47.816 ; Chronic pain syndrome G89.4 and OA (osteoarthritis) of shoulder M19.019 Assessments Encounter Date Diagnosis (ICD Code) Assessment Notes Treatment Notes Treatment Clinical Notes Section Notes 12/02/2024 Hyperlipidemia (ICD-10 - E78.5) High Cholesterol: Care Instructions material was printed 12/02/2024 Gastroesophageal reflux disease without esophagitis (ICD-10 - K21.9) 12/02/2024 Adult ADHD (ICD-10 - F90.9) 12/02/2024 Lumbar spondylosis (ICD-10 - M47.816) 12/02/2024 Chronic pain syndrome (ICD-10 - G89.4) 12/02/2024 OA (osteoarthritis) of shoulder (ICD-10 - M19.019) Plan Of Treatment Treatment Notes Assessment Notes Hyperlipidemia High Cholesterol: Ca re Instructions material was printed Next Appt Details Provider Name:Judd mann, 03/09/2025 02:15:00 PM, [address] [facility], [address], [place], [address], Progress Notes * Gustabo RIVERADOB:1960 (64 yo M)Acc No.[id number]:12/02/2024 Progress Notes Patient: Gustabo CHRISTINE Provider: Umang Lazaro M.D. :1960 A ge:64 Y S ex:Male Date:12/02/2024 Address:[address] [place], [place] [id number] Subjective: * Chief Complaints: * 1 . Pain med eval/refill. * Medical History: A DHD, Tard. Dyskinesia. [...] for medical reasons in the past 12 months??No. A lcohol Screen (Audit-C) D id you have a drink containing alcohol in the past year? N o, P oints 0 , I nterpretation N egative. C affeine I ntake: m ore than 4 cups per day. D o you smoke marijuana?: Denies. Do you drink alcohol?: No. * Medications: T earl Amitriptyline HCl 10 MG Tablet 1 tablet at bedtime Orally Once a day , Taking Latanoprost 0.005 % Solution 1 drop into affected eye in the evening Ophthalmic Once a day , Taking Triamcinolone Acetonide 0.1 % Cream 1 application Externally Twice a day As needed, Taking Wellbutrin XL 300 MG Tablet Extended Release 24 Hour 1 tablet in the morning Orally Once a day , Taking Inderal LA 80 MG Capsule Extended Release 24 Hour 1 capsule Orally Once a day , Taking cloNIDine HCl [...] B enadryl: hives. Objective: * Vitals: T emp:98.0F, HR:88/min, BP:104/58mm Hg, Wt:157lbs, BMI:21.89Index, Ht: 71 in, RR:16/min, Oxygen sat %:97%, Peak Flow:RA, Ht-cm: 180.34 cm, Wt-k.21 kg. ple. Assessment: * Assessment: 1. H yperlipidemia - E78.5 (Primary) 2 . G astroesophageal reflux disease without esophagitis - K21.9 3 . A dult ADHD - F90.9 4 . L umbar spondylosis - M47.816 5 . C hronic pain syndrome - G89.4 6 .?OA (osteoarthritis) of shoulder - M19.019 Plan: * Treatment: * Preventive Medicine: Your Preventative Wellness Plan: C olorectal Cancer Screening C olonoscopy is recommended once every 10 years for patients at low risk or 2 years if at high risk. STATUS: U p to date, L ast Colonoscopy Screening Date . * * Electronic signature of Minerva Lazaro MD on 02/28/2025 at 03:05 PM EST Sign off status: Pending * Provider: Umang Lazaro M.D. Date: 0 12/02/2024 Generated for Eleni king/Miky/Hayden on: 1 04/30/2024 03:05 PM EST
--- OUTSIDE RECORDS SUMMARY | 2024-12-12 05:15 | XMS_ITS ---
Author Organization [facility] Address [address] [facility] [address] [place] [address] Care Team Providers Care Tire Sorter Name Role Phone Judd Lazaro Primary Care Provider Encounters Encounter Location Date Provider Diagnosis [facility] [address] [facility] [address] [place] [address] 12/12/2024 Judd Lazaro Plan Of Treatment Next Appt Details Provider Name:Judd mann, 03/09/2025 02:15:00 PM, [address] [facility], [address], [place], [address], Progress Notes * Gustabo RIVERADOB:1960 (64 yo M)Acc No.[id number]:12/12/2024 Progress Notes Patient: Gustabo CHRISTINE Provider: Umang Lazaro M.D. :1960 A ge:64 Y S ex:Male Date:12/12/2024 Address:[address] [place], [place] [id number] Subjective: * Chief Complaints: * * Medical History: Objective: * Vitals: Assessment: Plan: * Treatment: * * Electronic signature of Minerva Lazaro MD on 02/28/2025 at 03:04 PM EST Sign off status: Pending * Provider: Umang Lazaro M.D. Date: 0 12/12/2024 Generated for Sarahi christine/Fadane/eTransmitting on: 1 04/30/2024 03:04 PM EST
--- OUTSIDE RECORDS SUMMARY | 2024-12-15 09:00 | XMS_ITS ---
Author Organization [facility] Address [address] [address] Care Team Providers Care Bench Loom Weaver Name Role Phone Judd Lazaro Primary Care Provider [phone] Allergies Allergen (clinical drug ingredient) Drug/Non Drug Allergy documented on EMR Reaction Allergy Type Onset Date Status diphenhydramine Benadryl hives Drug Allergy A ctive REASON FOR VISIT F/U Pain med eval/refill Medications Medication SIG (Take, Route, Frequency, Duration) Notes Start Date End Date Status Inderal LA 80 MG 1 capsule Orally Onc e a day Active cloNIDine HCl 0.1 MG 1 tablet Orally Twi ce a day Active Famotidine 20 MG TAKE 1 TABLET BY DAILY AT BEDTIME; Duration: 90 Active Omeprazole 40 MG 1 capsule 30 minutes before morning meal Orally Once a day; Duration: 30 day(s) Active HYDROcodone-Acetaminophen 5-325 MG 1 tablet Orally every 8 hrs; Duration: 14 days As needed 12/02/2024 Active Triamcinolone Acetonide 0.1 % 1 application Externally Twice a day As needed Active Latanoprost 0.005 % 1 drop into affected eye in the evening Ophthalmic Once a day Active Wellbutrin XL 300 MG 1 tablet in the mor sandor Orally Once a day; Duration: 30 day(s) Active Amitriptyline HCl 10 MG 1 tablet [...] Points 0 Interpretation Negative Vital Signs Temperature 98.2 degrees Fahrenheit 12/16/19 25 Blood pressure systolic 114 mm Hg 12/16/19 25 Blood pressure diastolic 68 mm Hg 025 Heart Rate 86 /min 12/15/2024 Respiratory Rate 16 /min 12/15/2024 Height 71 in 12/15/2024 Weight 154 lbs 12/15/2024 BMI 21.48 kg/m2 12/15/2024 Oximetry 97 % 12/15/2024 ple Encounters Encounter Location Date Provider Diagnosis [facility] [address] [facility] [address] [place] [address] 12/15/2024 Judd Lazaro Hyperlipidemia E78.5 ; Adult ADHD F90.9 ; OA (osteoarthritis) of shoulder M19.019 and Chronic pain syndrome G89.4 Assessments Encounter Date Diagnosis (ICD Code) Assessment Notes Treatment Notes Treatment Clinical Notes Section Notes 12/15/2024 Hyperlipidemia (ICD-10 - E78.5) High Cholesterol: Care Instructions material was printed 12/15/2024 Adult ADHD (ICD-10 - F90.9) 12/15/2024 OA (osteoarthritis) of shoulder (ICD-10 - M19.019) 12/15/2024 Chronic pain syndrome (ICD-10 - G89.4) Plan Of Treatment Treatment Notes Assessment Notes Hyperlipidemia High Cholesterol: Ca re Instructions material was printed Next Appt Details Provider Name:Judd Adami johnathan, 03/09/2025 02:15:00 PM, [address] [facility], [address], [place], [address], Progress Notes * MARQUITAFARAZ GustaboDOB:1960 (64 yo M)Acc No.[id number]:12/15/2024 Progress Notes Patient: Gustabo CHRISTINE Provider: Umang Lazaro M.D. :1960 A ge:64 Y S ex:Male Date:12/15/2024 Address:[address] [place], [place] [id number] Subjective: * Chief Complaints: * 1 . F/U Pain med eval/refill. * Medical History: A [...] B enadryl: hives. Objective: * Vitals: T emp:98.2F, HR:86/min, BP:114/68mm Hg, Wt:154lbs, BMI:21.48Index, Ht: 71 in, RR:16/min, Oxygen sat %:97%, Peak Flow:RA, Ht-cm: 180.34 cm, Wt-k.85 kg. ple. Assessment: * Assessment: 1. H yperlipidemia - E78.5 (Primary) 2 . A dult ADHD - F90.9 ?3. O A (osteoarthritis) of shoulder - M19.019 4 . C hronic pain syndrome - G89.4 [...] * Provider: Umang Lazaro M.D. Date: 0 12/15/2024 Generated for Eleni king/Miky/Hayden on: 1 04/30/2024 03:04 PM EST
--- OUTSIDE RECORDS SUMMARY | 2024-12-29 08:30 | XMS_ITS ---
Author Organization [facility] Address [address] [address] Care Team Providers Care Expansion Joint Builder Name Role Phone Judd Lazaro Primary Care Provider Allergies Allergen (clinical drug ingredient) Drug/Non Drug Allergy documented on EMR Reaction Allergy Type Onset Date Status diphenhydramine Benadryl hives Drug Allergy A ctive REASON FOR VISIT F/U HLD, F/U Pain med eval/refill Medications Medication SIG (Take, Route, Frequency, Duration) Notes Start Date End Date Status HYDROcodone-Acetaminophen 5-325 MG 1 tablet Orally every 8 hrs; Duration: 14 days As needed 12/20/2024 Active Famotidine 20 MG TAKE 1 TABLET BY ODALIS DAILY AT BEDTIME; Duration: 90 Active Omeprazole 40 MG 1 capsule 30 minutes before morning meal Orally Once a day; Duration: 30 day(s) Active cloNIDine HCl 0.1 MG 1 tablet Orally Twi ce a day Active Inderal LA 80 MG 1 capsule Orally Onc e a day Active Triamcinolone Acetonide 0.1 % 1 application Externally Twice a day As needed Active Latanoprost 0.005 % 1 drop into affected eye in the evening Ophthalmic Once a day Active Amitriptyline HCl 10 MG 1 tablet at bedt trini Orally Once a day Active Atorvastatin Calcium 10 MG 1 tablet Oral ly Once a day; Duration: 30 days 12/29/2024 Active Wellbutrin XL 300 MG 1 tablet [...] Points 0 Interpretation Negative Vital Signs Temperature 97.8 degrees Fahrenheit 12/30/19 25 Blood pressure systolic 104 mm Hg 12/30/19 25 Blood pressure diastolic 62 mm Hg 025 Heart Rate 92 /min 12/29/2024 Respiratory Rate 16 /min 12/29/2024 Height 71 in 12/29/2024 Weight 152 lbs 12/29/2024 BMI 21.2 kg/m2 12/29/2024 Oximetry 96 % 12/29/2024 ple Encounters Encounter Location Date Provider Diagnosis [facility] [address] [facility] [address] [place] [address] 12/29/2024 Judd Lazaro Hyperlipidemia E78.5 ; Gastroesophageal reflux disease without esophagitis K21.9 ; Hyperglycemia R73.9 ; Adult ADHD F90.9 ; Tardive dyskinesia G24.01 ; Neck pain M54.2 and Cervical spondylosis M47.812 Assessments Encounter Date Diagnosis (ICD Code) Assessment Notes Treatment Notes Treatment Clinical Notes Section Notes 12/29/2024 Hyperlipidemia (ICD-10 - E78.5) High Cholesterol: Care Instructions material was printed 12/29/2024 Gastroesophageal reflux disease without esophagitis (ICD-10 - K21.9) 12/29/2024 Hyperglycemia (ICD-10 - R73.9) 12/29/2024 Adult ADHD (ICD-10 - F90.9) 12/29/2024 Tardive dyskinesia (ICD-10 - G24.01) 12/29/2024 Neck pain (ICD-10 - M54.2) 12/29/2024 Cervical spondylosis (ICD-10 - M47.812) Plan Of Treatment Medication Medication Name Sig Start Date Stop Date Notes Atorvastatin Calcium 10 MG 1 tablet Oral ly Once a day; Duration: 30 days 12/29/2024 Treatment Notes Assessment Notes Hyperlipidemia High Cholesterol: Ca re Instructions material was printed Next Appt Details Provider Name:Judd mann, 03/09/2025 02:15:00 PM, [address] [facility], [address], [place], [address], Progress Notes * David RIVERA:1960 (64 yo M)Acc No.[id number]:12/29/2024 Progress Notes Patient: Gustabo CHRISTINE Provider: Umang Lazaro M.D. :1960 A ge:64 Y S ex:Male Date:12/29/2024 Address:[address] [place] [address] Subjective: * Chief Complaints: * 1 . F/U HLD. 2. F/U Pain med eval/refill. * Medical History: [...] B enadryl: hives. Objective: * Vitals: T emp:97.8F, HR:92/min, BP:104/62mm Hg, Wt:152lbs, BMI:21.2Index, Ht: 71 in, RR:16/min, Oxygen sat %:96%, Peak Flow:RA, Ht-cm: 180.34 cm, Wt-k.95 kg. ple. Assessment: * Assessment: 1. H yperlipidemia - E78.5 (Primary) 2 . G astroesophageal reflux disease without esophagitis - K21.9 3 . H yperglycemia - R73.9 4 . A dult ADHD - F90.9 5 . T ardive dyskinesia - G24.01 6 . N avi pain - M54.2 7 . C ervical spondylosis - M47.812 Plan: * Treatment: * Preventive Medicine: Your Preventative Wellness Plan: C olorectal Cancer Screening C olonoscopy is recommended once every 10 years for patients at low risk or 2 years if at high risk. STATUS: U p to date, L ast Colonoscopy Screening Date -2024. * * Electronic signature of Minerva Lazaro MD on 02/28/2025 at 03:04 PM EST Sign off status: Pending * Provider: Umang Lazaro M.D. Date: 0 12/29/2024 Generated for Eleni king/Miky/Hayden on: 1 04/30/2024 03:04 PM EST
--- OUTSIDE RECORDS SUMMARY | 2025-01-12 04:45 | XMS_ITS ---
Author Organization [facility] Address [address] [address] Care Team Providers Care Piano Professor Name Role Phone Judd Lazaro Primary Care Provider Allergies Allergen (clinical drug ingredient) Drug/Non Drug Allergy documented on EMR Reaction Allergy Type Onset Date Status diphenhydramine Benadryl hives Drug Allergy A ctive REASON FOR VISIT F/U HLD, Pain med eval/refill Medications Medication SIG (Take, Route, Frequency, Duration) Notes Start Date End Date Status Latanoprost 0.005 % 1 drop into affected eye in the evening Ophthalmic Once a day Active Inderal LA 80 MG 1 capsule Orally Onc e a day Active cloNIDine HCl 0.1 MG 1 tablet Orally 3 t imes a day Active Triamcinolone Acetonide 0.1 % 1 application Externally Twice a day As needed Active Wellbutrin XL 300 MG 1 tablet in the mor sandor Orally Once a day; Duration: 30 day(s) Active Amitriptyline HCl 10 MG 1 tablet at bedtime Orally Once a day As needed Active HYDROcodone-Acetaminophen 5-325 MG 1 tablet Orally every 8 hrs; Duration: 14 days As needed 12/29/2024 Active Atorvastatin Calcium 10 MG 1 tablet Oral ly Once a day; Duration: 30 days 12/29/2024 Active Omeprazole 40 MG 1 capsule 30 minutes before morning meal Orally Once a day; Duration: 30 day(s) Active Famotidine 20 MG TAKE 1 TABLET BY ODALIS TH DAILY AT BEDTIME; Duration: 90 Active Social History Tobacco Use: Social History Observation Description Date Details (start date - stop date) Never Smoker NA - NA Tobacco Use/Smoking Question Answer Notes Are you a nonsmoker Alcohol Screen (Audit-C) Question Answer Notes Did you have a drink containing alcohol in the p ast year? No Points 0 Interpretation Negative Vital Signs Temperature 98.1 degrees Fahrenheit 01/13/20 Blood pressure systolic 114 mm Hg 01/13/20 Blood pressure diastolic 72 mm Hg 025 Heart Rate 86 /min 01/12/2025 Respiratory Rate 16 /min 01/12/2025 Height 71 in 01/12/2025 Weight 152 lbs 01/12/2025 BMI 21.2 kg/m2 01/12/2025 Oximetry 98 % 01/12/2025 ple Encounters Encounter Location Date Provider Diagnosis [facility] [address] [facility] [address] [place] [address] 01/12/2025 Judd Lazaro Hyperlipidemia E78.5 ; Lumbar spondylosis M47.816 ; Cervicalgia M54.2 ; Anemia D64.9 and Chronic pain syndrome G89.4 Assessments Encounter Date Diagnosis (ICD Code) Assessment Notes Treatment Notes Treatment Clinical Notes Section Notes 01/12/2025 Hyperlipidemia (ICD-10 - E78.5) High Cholesterol: Care Instructions material was printed 01/12/2025 Lumbar spondylosis (ICD-10 - M47.816) 01/12/2025 Cervicalgia (ICD-10 - M54.2) 01/12/2025 Anemia (ICD-10 - D64.9) 01/12/2025 Chronic pain syndrome (ICD-10 - G89.4) Plan Of Treatment Treatment Notes Assessment Notes Hyperlipidemia High Cholesterol: Ca re Instructions material was printed Next Appt Details Provider Name:Judd mann, 03/09/2025 02:15:00 PM, [address] [facility], [address], [place], [address], Progress Notes * Gustabo RIVERADOB:1960 (64 yo M)Acc No.[id number]:01/12/2025 Progress Notes Patient: Gustabo CHRISTINE Provider: Umang Lazaro M.D. :1960 A ge:64 Y S ex:Male Date:01/12/2025 Address:[address] [place] [address] Subjective: * Chief Complaints: * 1 . F/U HLD. 2. Pain med eval/refill. * Medical History: A [...] tablet at bedtime Orally Once a day As needed, Taking Latanoprost 0.005 % Solution 1 drop [...] HCl 0.1 MG Tablet 1 tablet Orally 3 times a day , Taking Omeprazole 40 MG Capsule Delayed Release 1 capsule 30 minutes before morning meal Orally Once a day , Taking Famotidine 20 MG Tablet TAKE 1 TABLET BY MOUTH DAILY AT BEDTIME , Taking Atorvastatin Calcium 10 MG Tablet 1 tablet Orally Once a day , Taking HYDROcodone- Acetaminophen 5-325 MG Tablet 1 tablet Orally every 8 hrs As needed, Medication List reviewed and reconciled with the patient * Allergies: B enadryl: hives. Objective: * Vitals: T emp:98.1F, HR:86/min, BP:114/72mm Hg, Wt:152lbs, BMI:21.2Index, Ht: 71 in, RR:16/min, Oxygen sat %:98%, Peak Flow:RA, Ht-cm: 180.34 cm, Wt-k.95 kg. ple. Assessment: * Assessment: 1. H yperlipidemia - E78.5 (Primary) 2 . L umbar spondylosis - M47.816 3 . C ervicalgia - M54.2 4 . A nemia - D64.9 5 .?Chronic pain syndrome - G89.4 Plan: * Treatment: [...] * Provider: Umang Lazaro M.D. Date: 0 01/12/2025 Generated for Eleni king/Miky/Hayden on: 04/30/2024 03:05 PM EST
--- OUTSIDE RECORDS SUMMARY | 2025-01-26 07:45 | XMS_ITS ---
Author Organization [facility] Address [address] [address] Care Team Providers Care Paper Coating Machine Operator Name Role Phone Shaikh Judd Primary Care Provider Allergies Allergen (clinical drug ingredient) Drug/Non Drug Allergy documented on EMR Reaction Allergy Type Onset Date Status diphenhydramine Benadryl hives Drug Allergy A ctive REASON FOR VISIT F/U HLD, Pain meds eval/refill Medications Medication SIG (Take, Route, Frequency, Duration) Notes Start Date End Date Status Atorvastatin Calcium 10 MG 1 tablet Oral ly Once a day; Duration: 30 days 12/29/2024 Active HYDROcodone-Acetaminophen 5-325 MG 1 tablet Orally every 8 hrs; Duration: 14 days As needed 01/12/2025 Active Amitriptyline HCl 10 MG 1 tablet at bedtime Orally Once a day As needed Active Latanoprost 0.005 % 1 drop into affected eye in the evening Ophthalmic Once a day Active Triamcinolone Acetonide 0.1 % 1 application Externally Twice a day As needed Active Famotidine 20 MG TAKE 1 TABLET BY ODALIS TH DAILY AT BEDTIME; Duration: 90 Active Wellbutrin XL 300 MG 1 tablet in the mor sandor Orally Once a day; Duration: 30 day(s) Active Inderal LA 80 MG 1 capsule Orally Onc e a day Active cloNIDine HCl 0.1 MG 1 tablet Orally 3 t imes a day Active Omeprazole 40 MG 1 capsule 30 minutes before morning meal Orally Once a day; Duration: 30 day(s) Active Vital Signs Temperature 97.7 degrees Fahrenheit 01/27/20 25 Blood pressure systolic 118 mm Hg 01/27/20 25 Blood pressure diastolic 74 mm Hg 025 Heart Rate 88 /min 01/26/2025 Respiratory Rate 16 /min 01/26/2025 Height 71 in 01/26/2025 Weight 156 lbs 01/26/2025 BMI 21.76 kg/m2 01/26/2025 Oximetry 97 % 01/26/2025 TM Encounters Encounter Location Date Provider Diagnosis [facility] [address] [facility] [address] [place] [address] 01/26/2025 Judd Lazaro Hyperlipidemia E78.5 ; Gastroesophageal reflux disease without esophagitis K21.9 ; Hyperglycemia R73.9 ; Tardive dyskinesia G24.01 ; Primary insomnia F51.01 ; Cervical spondylosis M47.812 and Chronic pain syndrome G89.4 Assessments Encounter Date Diagnosis (ICD Code) Assessment Notes Treatment Notes Treatment Clinical Notes Section Notes 01/26/2025 Hyperlipidemia (ICD-10 - E78.5) High Cholesterol: Care Instructions material was printed 01/26/2025 Gastroesophageal reflux disease without esophagitis (ICD-10 - K21.9) 01/26/2025 Hyperglycemia (ICD-10 - R73.9) 01/26/2025 Tardive dyskinesia (ICD-10 - G24.01) 01/26/2025 Primary insomnia (ICD-10 - F51.01) 01/26/2025 Cervical spondylosis (ICD-10 - M47.812) 01/26/2025 Chronic pain syndrome (ICD-10 - G89.4) Plan Of Treatment Treatment Notes Assessment Notes Hyperlipidemia High Cholesterol: Ca re Instructions material was printed Next Appt Details Provider Name:Judd mann, 03/09/2025 02:15:00 PM, [address] [facility], [address], [place], [address], Progress Notes * Gustabo RIVERADOB:1960 (64 yo M)Acc No.[id number]:01/26/2025 Progress Notes Patient: Gustabo CHRISTINE Provider: Umang Lazaro M.D. :1960 A ge:64 Y S ex:Male Date:01/26/2025 Address:[address] [place], [place] [id number] Subjective: * Chief Complaints: * 1 . F/U HLD. 2. Pain meds eval/refill. * Medical History: A DHD, Tard. [...] HTN, Heart disease, DM Type 2. * Medications: T aking HYDROcodone-Acetaminophen 5-325 MG Tablet 1 tablet Orally every 8 hrs As needed, Taking Amitriptyline HCl 10 MG Tablet 1 tablet [...] 1 tablet Orally Once a day , Medication List reviewed and reconciled with the patient * Allergies: B enadryl: hives. Objective: * Vitals: T emp:97.7F, HR:88/min, BP:118/74mm Hg, Wt:156lbs, BMI:21.76Index, Ht: 71 in, RR:16/min, Oxygen sat %:97%, Peak Flow: RA, Ht-cm: 180.34 cm, Wt-k.76 kg. TM. Assessment: * Assessment: 1. H yperlipidemia - E78.5 (Primary) 2 . G astroesophageal reflux disease without esophagitis - K21.9 3 . H yperglycemia - R73.9 4 . T ardive dyskinesia - G24.01 5 . P rimary insomnia - F51.01 6 . Cervical spondylosis - M47.812 7 . C hronic pain syndrome - G89.4 ? Plan: * Treatment: * Preventive Medicine: Your [...] Pending * Provider: Umang Lazaro M.D. Date: Generated for Eleni king/Miky/Hayden on: 04/30/2024 03:04 PM EST
--- OUTSIDE RECORDS SUMMARY | 2025-02-09 07:30 | XMS_ITS ---
Author Organization [facility] Address [address] [address] Care Team Providers Care Belt Weaver Name Role Phone Judd Lazaro Primary Care Provider [phone] Allergies Allergen (clinical drug ingredient) Drug/Non Drug Allergy documented on EMR Reaction Allergy Type Onset Date Status diphenhydramine Benadryl hives Drug Allergy A ctive REASON FOR VISIT F/U HLD, Pain meds eval/refill, C/O- Itching on back and legs X 6 months Medications Medication SIG (Take, Route, Frequency, Duration) Notes Start Date End Date Status cloNIDine HCl 0.1 MG 1 tablet Orally 3 t imes a day Active Omeprazole 40 MG 1 capsule 30 minutes before morning meal Orally Once a day; Duration: 30 day(s) Active Famotidine 20 MG TAKE 1 TABLET BY ODALIS TH DAILY AT BEDTIME; Duration: 90 Active Atorvastatin Calcium 10 MG 1 tablet Oral ly Once a day; Duration: 30 days 12/29/2024 Active HYDROcodone-Acetaminophen 5-325 MG 1 tablet Orally every 8 hrs; Duration: 14 days As needed 01/26/2025 Active Triamcinolone Acetonide 0.1 % 1 application Externally Twice a day As needed Active Wellbutrin XL 300 MG 1 tablet in the mor sandor Orally Once a day; Duration: 30 day(s) Active Inderal LA 80 MG 1 capsule Orally Onc e a day Active Amitriptyline HCl 10 MG 1 tablet at bedtime Orally Once a day As needed Active Latanoprost 0.005 % 1 drop into affected eye in the evening Ophthalmic Once a day Active Problems Problem Type SNOMED Code ICD Code Onset Dates Problem Status W/U Status Risk Notes Problem Obstructive sleep apnea syndrome ([id number]) RAMONA on CPAP (G47.33) Active confirmed Vital Signs Temperature 98.0 degrees Fahrenheit 02/10/20 25 Blood pressure systolic 112 mm Hg 02/10/20 25 Blood pressure diastolic 72 mm Hg 025 Heart Rate 97 /min 02/09/2025 Respiratory Rate 16 /min 02/09/2025 Height 71 in 02/09/2025 Weight 151 lbs 02/09/2025 BMI 21.06 kg/m2 02/09/2025 Oximetry 99 % 02/09/2025 TM Encounters Encounter Location Date Provider Diagnosis [facility] [address] [facility] [address] [place] [address] 02/09/2025 Judd Lazaro Hyperlipidemia E78.5 ; Gastroesophageal reflux disease without esophagitis K21.9 ; Tardive dyskinesia G24.01 ; Weakness R53.1 ; Cervical spondylosis M47.812 ; RAMONA on CPAP G47.33 and Rash R21 Assessments Encounter Date Diagnosis (ICD Code) Assessment Notes Treatment Notes Treatment Clinical Notes Section Notes 02/09/2025 Hyperlipidemia (ICD-10 - E78.5) High Cholesterol: Care Instructions material was printed 02/09/2025 Gastroesophageal reflux disease without esophagitis (ICD-10 - K21.9) 02/09/2025 Tardive dyskinesia (ICD-10 - G24.01) 02/09/2025 Weakness (ICD-10 - R53.1) 02/09/2025 Cervical spondylosis (ICD-10 - M47.812) 02/09/2025 RAMONA on CPAP (ICD-10 - G47.33) 02/09/2025 Rash (ICD-10 - R21) Plan Of Treatment Treatment Notes Assessment Notes Hyperlipidemia High Cholesterol: Ca re Instructions material was printed Next Appt Details Provider Name:Judd mann, 03/09/2025 02:15:00 PM, [address] [facility], [address], [place], [address], Progress Notes * Gustabo RIVERADOB:1960 (64 yo M)Acc No.[id number]:02/09/2025 Progress Notes Patient: Beatriz Gustabo SUNSHINE Provider: Umang Lazaro M.D. :1960 A ge:64 Y S ex:Male Date:02/09/2025 Address:[address] [place], [place] [id number] Subjective: * Chief Complaints: * 1 . F/U HLD. 2. Pain meds eval/refill. 3. C/O- Itching on back and legs X 6 months. * Medical History: A DHD, Tard. Dyskinesia. * Surgical History: P erferated colon 2021, Esophegeal repair 2022, Plate in neck 2022. * Hospitalization/Major Diagno stic Procedure: D enies Past Hospitalization. * Family History: F ather: , diagnosed with Other malignant neoplasm of unspecified site, Unspecified essential hypertension, Unspecified heart disease. M other: alive, diagnosed with Diabetes mellitus without mention of complication, type II or unspecified type, not stated as uncontrolled, Unspecified essential hypertension. Father - Liver CA Family Hx - HTN, Heart disease, DM Type 2. * Medications: T aking Amitriptyline HCl 10 [...] enadryl: hives. Objective: * Vitals: T emp:98.0F, HR:97/min, BP:112/72mm Hg, Wt:151lbs, BMI:21.06Index, Ht: 71 in, RR:16/min, Oxygen sat %:99%, Peak Flow: RA, Ht-cm: 180.34 cm, Wt-k.49 kg. TM. Assessment: * Assessment: 1. H yperlipidemia - E78.5 (Primary) 2 . G astroesophageal reflux disease without esophagitis - K21.9 3 . T ardive dyskinesia - G24.01 4 .?Weakness - R53.1 5 . C ervical spondylosis - M47.812 6 .?RAMONA on CPAP - G47.33 7 . R flor - R21 Plan: * Treatment: * Preventive Medicine: Your Preventative Wellness Plan: C olorectal Cancer Screening C olonoscopy is recommended once every 10 years for patients at low risk or 2 years if at high risk. STATUS: U p to date, L ast Colonoscopy Screening Date . * * Electronic signature of Minerva Lazaro MD on 02/28/2025 at 03:03 PM EST Sign off status: Pending * Provider: Umang Lazaro M.D. Date: Generated for Eleni king/Miky/Hayden on: 04/30/2024 03:03 PM EST
--- OUTSIDE RECORDS SUMMARY | 2025-02-23 07:15 | XMS_ITS ---
Author Organization [facility] Address [address] [facility] [address] [place] [address] Care Team Providers Care Dairy Cattle Farm Manager Name Role Phone Judd Lazaro Primary Care Provider Encounters Encounter Location Date Provider Diagnosis [facility] [address] [facility] [address] [place] [address] 02/23/2025 Judd Lazaro Plan Of Treatment Next Appt Details Provider Name:Judd mann, 03/09/2025 02:15:00 PM, [address] [facility], [address], [place], [address], Progress Notes * Gustabo RIVERADOB:1960 (64 yo M)Acc No.[id number]:02/23/2025 Progress Notes Patient: Gustabo CHRISTINE Provider: Umang Lazaro M.D. :1960 A ge:64 Y S ex:Male Date:02/23/2025 Address:[address] [place], [place] [id number] Subjective: * Chief Complaints: * * Medical History: Objective: * Vitals: Assessment: Plan: * Treatment: * * Electronic signature of Minerva Lazaro MD on 02/28/2025 at 03:03 PM EST Sign off status: Pending * Provider: Umang Lazaro M.D. Date: 04/25/2024 Generated for Eleni king/Miky/eTransmitting on: 04/30/2024 03:03 PM EST
--- OUTSIDE RECORDS SUMMARY | 2025-02-23 07:45 | XMS_ITS ---
Author Organization [facility] Address [address] [address] Care Team Providers Care Product Safety Coordinator Name Role Phone Judd Lazaro Primary Care Provider Allergies Allergen (clinical drug ingredient) Drug/Non Drug Allergy documented on EMR Reaction Allergy Type Onset Date Status diphenhydramine Benadryl hives Drug Allergy A ctive REASON FOR VISIT F/U- Pain meds eval/refill, C/O- trouble breathing when walking up and down steps X 3 weeks Medications Medication SIG (Take, Route, Frequency, Duration) Notes Start Date End Date Status cloNIDine HCl 0.1 MG 1 tablet Orally 3 t imes a day Active Famotidine 20 MG TAKE 1 TABLET BY DAILY AT BEDTIME; Duration: 90 Active Omeprazole 40 MG 1 capsule 30 minutes before morning meal Orally Once a day; Duration: 30 day(s) Active Atorvastatin Calcium 10 MG TAKE 1 TABLET BY MOUTH DAILY; Duration: 90 Active HYDROcodone-Acetaminophen 5-325 MG 1 tablet Orally every 8 hrs; Duration: 14 days As needed 01/26/2025 Active Latanoprost 0.005 % 1 drop into affected eye in the evening Ophthalmic Once a day Active Wellbutrin XL 300 MG 1 tablet in the mor sandor Orally Once a day; Duration: 30 day(s) Active Triamcinolone Acetonide 0.1 % 1 application Externally Twice a day As needed Active Inderal LA 80 MG 1 capsule Orally Onc e a day Active Amitriptyline HCl 10 MG 1 tablet at bedtime Orally Once a day As needed Active Dupixent 300 MG/2ML 2 mL Subcutaneous Ev viviane 2 weeks 02/23/2025 Active Problems Problem Type SNOMED Code ICD Code Onset Dates Problem Status W/U Status Risk Notes Problem Atypical chest pain (589927372) Atypical chest pain (R07.89) Active confirmed Problem Dyspnea on exertion (37861273) MCMULLEN (dyspnea on exertion) (R06.09) Active confirmed Vital Signs Temperature 97.2 degrees Fahrenheit 02/24/20 25 Blood pressure systolic 110 mm Hg 02/24/20 25 Blood pressure diastolic 68 mm Hg 025 Heart Rate 75 /min 02/23/2025 Respiratory Rate 16 /min 02/23/2025 Height 71 in 02/23/2025 Weight 147 lbs 02/23/2025 BMI 20.5 kg/m2 02/23/2025 Oximetry 96 % 02/23/2025 TM Encounters Encounter Location Date Provider Diagnosis [facility] [address] [facility] [address] [place] [address] 02/23/2025 Juddpablito Benitezh Atypical chest pain R07.89 ; MCMULLEN (dyspnea on exertion) R06.09 ; Hyperlipidemia E78.5 ; Gastroesophageal reflux disease without esophagitis K21.9 ; Tardive dyskinesia G24.01 ; Cervical spondylosis M47.812 and Chronic pain syndrome G89.4 Assessments Encounter Date Diagnosis (ICD Code) Assessment Notes Treatment Notes Treatment Clinical Notes Section Notes 02/23/2025 Atypical chest pain (ICD-10 - R07.89) Musculoskeletal Chest Pain: Care Instructions material was printed 02/23/2025 MCMULLEN (dyspnea on exertion) (ICD-10 - R06.09) 02/23/2025 Hyperlipidemia (ICD-10 - E78.5) 02/23/2025 Gastroesophageal reflux disease without esophagitis (ICD-10 - K21.9) 02/23/2025 Tardive dyskinesia (ICD-10 - G24.01) 02/23/2025 Cervical spondylosis (ICD-10 - M47.812) 02/23/2025 Chronic pain syndrome (ICD-10 - G89.4) Plan Of Treatment Treatment Notes Assessment Notes Atypical chest pain Musculoskeletal Ches t Pain: Care Instructions material was printed Next Appt Details Provider Name:Judd mann, 03/09/2025 02:15:00 PM, [address] [facility], [address], [place], [address], Progress Notes * Gustabo RIVERADOB:1960 (64 yo M)Acc No.[id number]:02/23/2025 Progress Notes Patient: Gustabo CHRISTINE Provider: Umang Lazaro M.D. :1960 A ge:64 Y S ex:Male Date:02/23/2025 Address:[address] [place], [place] [id number] Subjective: * Chief Complaints: * 1 . F/U- Pain meds eval/refill. 2. C/O- trouble breathing when walking up and down steps X 3 weeks. * Medical History: A DHD, Tard. Dyskinesia. [...] DM Type 2. * Medications: T aking Dupixent 300 MG/2ML Solution Prefilled Syringe 2 mL Subcutaneous Every 2 weeks , Taking Amitriptyline HCl 10 MG Tablet 1 [...] Orally every 8 hrs As needed, Taking Atorvastatin Calcium 10 MG Tablet TAKE 1 TABLET BY MOUTH DAILY , Medication List reviewed and reconciled with the patient * Allergies: B enadryl: hives. Objective: * Vitals: T emp:97.2F, HR:75/min, BP:110/68mm Hg, Wt:147lbs, BMI:20.5Index, Ht: 71 in, RR:16/min, Oxygen sat %:96%, Peak Flow: RA, Ht-cm: 180.34 cm, Wt-k.68 kg. TM. Assessment: * Assessment: 1. D OE (dyspnea on exertion) - R06.09 2 . A typical chest pain - R07.89 (Primary) 3 . H yperlipidemia - E78.5 4 . G astroesophageal reflux disease without esophagitis - K21.9 5 . T ardive dyskinesia - G24.01 & #160; 6 . C ervical spondylosis - M47.812 7 . C hronic pain syndrome - G89.4 Plan: * Treatment: * Procedure Codes: 9 3000 -ELECTROCARDIOGRAM, COMPLETE * Preventive Medicine: Your Preventative Wellness Plan: [...] Lazaro M.D. Date: 04/25/2024 Generated for Eleni king/Miky/Hayden on: 04/30/2024 03:04 PM EST
--- NOTE | ~2025-02-28 | XR_ITS ---
Examination: XR chest 2V Clinical History: atypical chest pain; MCMULLEN, SOB Comparison: 03/30/2017 Technique: PA and Lateral Findings: Cardiomediastinal silhouette normal size and configuration. Lungs clear. Mild hyperinflation. No acute bony abnormality. IMPRESSION: 1. No acute cardiopulmonary findings. Reviewed, dictated and finalized at location R. R ASSEMBLY INSPECTOR
--- OUTSIDE RECORDS SUMMARY | 2025-02-28 14:03 | XMS_ITS | Encounter Summary ---
Author Organization [facility] Address [address] [facility] [place] [address] Care Team Providers Care Healthcare Business Analyst Name Role Phone Aye Angeles Unavailable Unavailable Umberto Nguyen MD Primary Care Provider [phone] Juanjo Dowell MD Primary Care Provider [phone] Umberto Nguyen MD Primary Care Provider Spike Etienne MD Unavailable Niyah Bush MD Primary Care Provider Umberto Nguyen MD Primary Care Provider [phone] Spike Etienne MD Primary Care Provider Spike Etienne MD Primary Care Provider Spike Etienne MD Primary Care Provider Tiffany Dennis DO Primary Care Provider [phone] Bailee DUGGAN MD, Fred R Primary Care Provider + Tiffany Dennis DO Primary Care Provider Spike Etienne MD Primary Care Provider [phone] Umberto Nguyen MD Primary Care Provider [phone] Mari Lazaro MD Primary Care Provider [phone] Encounter Details Date Type Department Care Team (Late Contact Info) Description 08/31/2018 Lab Requisition [facility] Care Pathology Lab [address] [place] [address] Sabrina Scott MD [address] [facility] [address] Social History Tobacco Use Types Packs/Day Years [...] Description 08/22/2025 1:45 PM CDT Office Visit [facility] - Orthopedics [address] [facility] [place] [id number] Matthew Sofia MD [address] [place] [address] documented as of this encounter Goals Goal [...] 2:06 PM CDT) Client Specimen ID # [id number] 09/07/2018 5:33 PM CDT [facility] PATHOLOGY LAB Number of Blocks Received 0 09/07/2018 5:33 PM CDT [facility] Number of Slides 2 09/07/2018 5:33 PM CDT [facility] Number of Control Slides 1 09/07/2018 5:33 PM CDT [facility] PATHOLOGY LAB Pathology/Cytolo gy ESOPHAGEAL BIOPSY SPECIMEN / Unknown 08/26/2018 2:06 PM CDT 08/31/2018 11:43 AM CDT Sabrina Scott MD LAB - PATHOLOGY/CYTOLOGY ORDERAB LES Final Result Performing Organization Address [facility]/State/[facility] Co de Phone Number [facility] PATHOLOGY LAB [address] [phone] documented in this encounter Visit Diagnoses Not on filedocumented in this encounter Care Teams Healthcare Business Analyst Relationship Specialty Start Date End Date Umberto Nguyen MD PCP - General 05/19/18 08/31/18 Juanjo Dowell MD [address] [place] [address] PCP - General Internal Medicine 09/01/18 09/02/18 Umberto Nguyen MD PCP - General 09/03/18 01/20/19 Niyah Bush MD [address] [place] [address] PCP - General Internal Medicine 01/22/19 01/22/19 Umberto Nguyen MD PCP - General 01/23/19 02/10/19 Spike Etienne MD [address] [place] [address] PCP - General 02/11/19 02/22/19 Spike Etienne MD [address] [place] [address] PCP - General 03/21/19 06/28/19 Spike Etienne MD [address] [place] [address] PCP - General 06/29/19 10/24/19 Tiffany Dennis DO [address] [place] [address] PCP - General 10/25/19 10/31/19 Celestino Morocho III, MD [address] [place] [address] PCP - General Internal Medicine 11/01/19 11/09/19 Tiffany Dennis DO [address] [place] [address] PCP - General 11/10/19 12/01/19 Spike Etienne MD [address] [place] [address] PCP - General 01/17/21 09/22/22 Umberto Nguyen MD [address] [place] [address] PCP - General Family Medicine 09/23/22 10/19/23 Mari Lazaro MD [address] [facility] [address] [place] [id number] PCP - General Internal Medicine 10/20/23 Aye Angeles [employer] Launch Weapons Technician Psychiatry 11/05/17 09/21/18 Spike Etienne MD [address] [place] [address] Resident - PCP General Medicine 01/21/19 01/08/21 documented as of this encounter
--- OUTSIDE RECORDS SUMMARY | 2025-02-28 14:03 | XMS_ITS | Clinical Summary ---
Author Organization [facility] Address [address] [facility] [place] [address] Care Team Providers Care Customer Service Driver Name Role Phone Mari Lazaro MD Primary Care Provider [phone] Source Comments [facility],non-owned Affiliates and Associated Physician Practices is amultiple site organization consisting of ambulatory clinics and hospital sitesin [place], [place], [place] and [place]. This disclosure is being madepursuant to the Care Everywhere program and may not contain all information available regarding this patient. Last updated 18.[facility] Allergies Active Allergy Reactions Criticality Noted Date [...] meal. 90 capsule 4 10/09/19 23 Active HYDROcodone-ac etaminophen ([place]) 5-325 MG tablet 1 (one) tablet every 8 hours as needed for Pain 03/08/20 24 Active propranolol ER 24hr (Inderal LA) 80 MG capsuleIndicat ions:Tremor TAKE 1 CAPSULE BY MOUTH EVERY DAY 30 capsule 11 11/15/19 25 Active amitriptyline (Elavil) 25 MG tabletIndicati ons:Insomnia Take 1 (one) tablet by mouth at bedtime Reasons: Trouble Sleeping 60 tablet 1 01/25/20 25 Active buPROPion XL 24hr (Wellbutrin-XL ) 300 MG tabletIndicati ons:Bipolar 1 disorder (HCC) TAKE 1 TABLET BY MOUTH EVERY DAY FOR ADHD OR MAJOR DEPRESSION 30 tablet 3 01/25/20 25 Active OLANZapine (ZyPREXA) 2.5 MG tabletIndicati ons:Manic Phase of Bipolar Mood Disorder Take 1 (one) tablet by mouth once daily Reasons: Manic Phase of Manic-Depression 30 tablet 2 01/25/20 25 Active cloNIDine (Catapres) 0.1 MG tabletIndicati ons:Tardive dystonia Take 1 (one) tablet by mouth 3 times daily 90 tablet 11 02/04/20 25 Active cloNIDine (Catapres) 0.1 MG tabletIndicati ons:Tardive dystonia Take 1 (one) tablet by mouth 3 times daily 90 tablet 11 08/31/19 24 025 Discontin ued(Reord er) Active Problems Problem [...] organization. Date Type Department Care Team Description 02/02/2025 Refill [facility] - Neurology [address] [place] [address] Jhonatan Collins APRN-SHADI MEDICATION REFILL 01/24/2025 Travel from Last 3 Months Immunizations Immunization [...] Date Recorded Patient Health Questionnaire-2 Score 0 01/24/2025 Sex and Gender Information Value Date Recorded Sex Assigned at Not on file Legal Sex Male 10:37 AM CDT Gender Identity Not on file Sexual Orientation Not on file Occupation Industry Job Start Date Job End Date disability Not on file Not on file Not on file Last Filed Vital Signs Vital Sign Reading Time Taken Comments Blood Pressure 114/80 01/24/2025 9:18 AM CDT Pulse 84 01/24/2025 9:18 AM CDT Temperature 36.4 C (97.6 F) 01/24/2025 9:18 AM CDT Respiratory Rate 20 05/16/2022 10:49 AM PIPE BENDER Oxygen Saturation 99% 01/24/2025 9:18 AM CDT Inhaled Oxygen Concentration - - Weight 69.9 kg (154 lb) 01/24/2025 9:18 AM CDT Height 180.3 cm (5' 11) 09/01/2024 10:03 AM CDT Body Mass Index 21.48 09/01/2024 10:03 AM CDT Plan of Treatment Upcoming Encounters Date Type Department Care Team (Late st Contact Info) Description 08/22/2025 1:45 PM CDT Office Visit [facility] - Orthopedics [address] [place] [address], [facility] [place] [address] Matthew Sofia MD [address] [place] [address] Health Maintenance Due Date Last Done Comments [...] COVID-19 VACCINE (1 - 2023-2 5 season) 2024 INFLUENZA VACCINE (#1) 2024 0, 01/20/2019, 01/26/2018 COLON MONITORING 02/23/2029 02/23/2019, 02/23/2019 [...] as ordered Medical Devices Implanted Type Area Internal Controls Specialist Device Identifier Shelf Expiration Date Model / Serial / Lot Tiss Kaur Srvc Fee 6.0 X 14mm X 11mm - [id number] Implanted:Qty: 1 on 10/08/2017 by Piotr Perez MD at [facility] N/A: Spine Cervical [employer] 05/18/2020 [id number] / [id number] / [id number] Tiss Kaur Srvc Fee 7.0 X 14mm X 11mm Implanted:Qty: 1 on 10/08/2017 by Piotr Perez MD at [facility] N/A: Spine Cervical [employer] [id number] / / Plate 57.5 Implanted:Qty: 1 on 10/08/2017 by Piotr Perez MD at [facility] N/A: Spine Cervical [employer] Inc [id number] / / Screw 4mm 14mm Spne Crv Ant Va Slf Drl Implanted:Qty: 2 on 10/08/2017 by Piotr Perez MD at [facility] N/A: Spine Cervical [employer] [id number] / / Screw 4mm 16mm Spne Crv Ant Va Slf Drl Implanted:Qty: 6 on 10/08/2017 by Piotr Perez MD at [facility] N/A: Spine Cervical [employer] [id number] / / Procedures Procedure Name Priority Date/Time Associated Diagnosis Comments ENDOSCOPY, COLON, SCREENING Routine 02/23/2019 1:12 PM PIPE BENDER HEPATITIS C ANTIBODY Routine 01/20/2019 4:15 PM CDT Encounter for immunization LIPID PROFILE Routine 09/18/2018 6:04 AM CDT from Last 3 Months or Most Recently Relevant to Health Maintenance Results * ENDOSCOPY, COLON, SCREENING (02/23/2019 1:12 PM PIPE BENDER) Report Endoscopy POC Endoscopy Department Report __ [...] non-shah portions. Procedure Code(s): --- Professional --- 16124, Esophagogastroduode noscopy, flexible, transoral; diagnostic, including collection of specimen(s) by brushing or washing, when performed (separate procedure) Diagnosis Code(s): --- Professional --- K22.70, Powell's esophagus without dysplasia R13.10, Dysphagia, unspecified CPT copyright 2016 [employer]. All rights reserved. The codes documented in this report are preliminary and upon picker box operator review may be revised to meet current compliance requirements. ____ Selene Gudino MD 02/23/2019 2:35:00 PM Note Initiated On: 02/23/2019 1:12 PM Number of Addenda: 0 [facility] [address] [place] [address] [facility] 02/23/2019 1:12 PM PIPE BENDER Selene Gudino MD GI PROCEDURE ORDERABLES E dited Result - Final [facility] * HEPATITIS C ANTIBODY (01/20/2019 4:15 PM CDT) Hepatitis C Antibody Non-react leo Non-reac tive 01/20/2019 6:58 PM CDT [facility] Comment: Hepatitis C Antibody screen indicates [...] CDT Spike Etienne MD LAB - CHEMISTRY ORDERABLES Fi nal Result [address] [phone] * (ABNORMAL) LIPID PROFILE (09/18/2018 6:04 AM CDT) Cholesterol Total 180 <200 mg/dL 09/18/2018 8:29 AM [facility] HDL 51 >40 mg/dL 09/18/2018 8:29 AM [facility] Comment: ATP III Classification of HDL Cholesterol: <40 mg/dL: Considered a major risk factor. >60 mg/dL: Considered a negative risk factor. LDL Calculated 110(H) <100 mg/dL 09/18/2018 8:29 AM [facility] Comment: ATP III Classification of LDL Cholesterol: <100 mg/dL: Optimal 100 - 129 mg/dL: Near Optimal/Above Optimal 130 - 159 mg/dL: Borderline High 160 - 189 mg/dL: High >190 mg/dL: Very High Triglycerides 94 <150 mg/dL 09/18/2018 8:29 AM [facility] Comment: ATP III Classification of Triglycerides: <150 mg/dL: Normal 150 - 199 mg/dL: Borderline High 200 - 400 mg/dL: High >500 mg/dL: Very High Blood BLOOD SPECIMEN / Unknown Venipuncture / Unknown 09/18/2018 6:04 AM CDT 09/18/2018 6:14 AM CDT us Magali Grace MD LAB - CHEMISTRY ORDERAB LES Final Result Performing Organization Address City/State/[facility] Co de Phone Number [address] [phone] from Last 3 Months or Most Recently Relevant to Health Maintenance Insurance [facility] Advance Directives Documents on File Type Date Recorded Patient Plant Sciences Professor Expl anation Adv Directive/Living Will/POA 08/18/2017 2:52 PM * Full Code (Latest Code Status on File) Date Activated Date Inactivated Comments 09/16/2018 8:30 PM 09/20/2018 2:49 PM * Full Code Date Activated Date Inactivated Comments 10/08/2017 2:30 PM 10/20/2017 8:07 PM * Full Code Date Activated Date Inactivated Comments 07/24/2017 9:46 AM 07/28/2017 4:37 PM Care Teams Customer Service Driver Relationship Specialty Start Date End Date Mari Lazaro MD [address] [facility] [address] [phone] PCP - General Internal Medicine 10/20/23
--- OUTSIDE RECORDS SUMMARY | 2025-02-28 14:03 | XMS_ITS | Patient Health Record ---
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 Name Role Phone Judd Lazaro Primary Care Provider Allergies Allergen (clinical drug ingredient) Drug/Non Drug Allergy documented on EMR Reaction Allergy Type Onset Date Status diphenhydramine Benadryl hives Drug Allergy A ctive Results Component Value Reference Range Notes BASIC METABOLIC PANEL (Not y et reviewed by provider) Interpretation: Performing Lab:[facility] [employer] Yeimy-[id number] Alan [id number] Osmel Kebede MD Notes/Report: GLUCOSE 86 65-99 [...] yet reviewed by provider) Interpretation: Performing Lab:Rowan [id number] Alan HullaKS[address] Osmel Kebede MD Notes/Report: WHITE BLOOD CELL [...] MPV 11.2 7.5-12.5 fL ABSOLUTE NEUTROPHILS 4875 1088-2354 cells/uL ABSOLUTE LYMPHOCYTES [phone] cells/uL ABSOLUTE MONOCYTES 900 200-950 cells/uL ABSOLUTE EOSINOPHILS 210 15-500 cells/uL ABSOLUTE BASOPHILS 53 0-200 cells/uL NEUTROPHILS 65 LYMPHOCYTES 19.5 MONOCYTES 12.0 EOSINOPHILS 2.8 BASOPHILS 0.7 COMPREHENSIVE METABOLIC PANE L (Not yet reviewed by provider) Interpretation: Performing Lab:MARY, Narvii-[id number] Marilee Rodriguez, [id number] Osmel Kebede MD Notes/Report: GLUCOSE 94 65-99 [...] yet reviewed by provider) Interpretation: Performing Lab:[facility] Narvii-[id number] Marilee Calero, AdmdfdIU[address] Osmel Kebede MD Notes/Report: WHITE BLOOD CELL [...] MPV 10.6 7.5-12.5 fL ABSOLUTE NEUTROPHILS 3582 2727-6929 cells/uL ABSOLUTE LYMPHOCYTES 2039 279-5370 cells/uL ABSOLUTE MONOCYTES 728 200-950 cells/uL ABSOLUTE EOSINOPHILS 150 15-500 cells/uL ABSOLUTE BASOPHILS 59 0-200 cells/uL NEUTROPHILS 55.1 LYMPHOCYTES 30.5 MONOCYTES 11.2 EOSINOPHILS 2.3 BASOPHILS 0.9 COMPREHENSIVE METABOLIC PANE L (Not yet reviewed by provider) Interpretation: Performing Lab:[facility] Narvii-Mxwbln88737 Marilee Calero, KqibdqOA[address] Osmel Kebede MD Notes/Report: GLUCOSE 112 65-99 mg/dL Fasting reference interval For someone without known diabetes, a glucose value between 100 and 125 mg/dL is consistent with prediabetes and should be confirmed with a follow-up test. UREA NITROGEN (BUN) 11 7-25 mg/dL CREATININE 0.99 0.70-1.35 mg/dL EGFR 86 > OR = 60 mL/min/1.73m2 BUN/CREATININE RATIO SEE NOTE: 6-22 (calc) Not Reported: BUN and Creatinine are within reference range. SODIUM 135 135-146 mmol/L POTASSIUM 4.5 3.5-5.3 mmol/L CHLORIDE 102 98-110 mmol/L CARBON DIOXIDE 26 20-32 mmol/L CALCIUM 9.0 8.6-10.3 mg/dL PROTEIN, TOTAL 6.6 6.1-8.1 g/dL ALBUMIN 4.2 3.6-5.1 g/dL GLOBULIN 2.4 1.9-3.7 g/dL (calc) ALBUMIN/GLOBULIN RATIO 1.8 1.0-2.5 (calc) BILIRUBIN, TOTAL 0.2 0.2-1.2 mg/dL ALKALINE PHOSPHATASE 63 35-144 U/L AST 10 10-35 U/L ALT 11 9-46 U/L CBC (INCLUDES DIFF/PLT) (Not yet reviewed by provider) Interpretation: Performing Lab:MARY Narvii-[id number] Marilee Calero, [id number] Osmel Kebede MD Notes/Report: WHITE BLOOD CELL COUNT 7.0 3.8-10.8 Thousand/ uL RED BLOOD CELL COUNT 4.46 4.20-5.80 Million/uL HEMOGLOBIN 10.0 13.2-17.1 g/dL HEMATOCRIT 34.5 38.5-50.0 % MCV 77.4 80.0-100.0 fL MCH 22.4 27.0-33.0 pg MCHC 29.0 32.0-36.0 g/dL For adults, a slight decrease in the calculated MCHC value (in the range of 30 to 32 g/dL) is most likely not clinically significant; however, it should be interpreted with caution in correlation with other red cell parameters and the patient's clinical condition. RDW 16.3 11.0-15.0 % PLATELET COUNT 426 140-400 Thousand/uL MPV 10.4 7.5-12.5 fL ABSOLUTE NEUTROPHILS 4396 2685-7146 cells/uL ABSOLUTE LYMPHOCYTES 9685 299-7665 cells/uL ABSOLUTE MONOCYTES 777 200-950 cells/uL ABSOLUTE EOSINOPHILS 147 15-500 cells/uL ABSOLUTE BASOPHILS 70 0-200 cells/uL NEUTROPHILS 62.8 LYMPHOCYTES 23.0 MONOCYTES 11.1 EOSINOPHILS 2.1 BASOPHILS 1.0 PSA, TOTAL (Not yet reviewed by provider) Interpretation: Performing Lab:MARY, Narvii-Ymyqrn54590 Marilee Calero, [id number] Osmel Kebede MD Notes/Report: PSA, TOTAL 1.28 < OR = 4.00 ng/mL The total PSA value from this assay system is standardized against the WHO standard. The test result will be approximately 20% lower when compared to the equimolar-standardized total PSA (Lalitha Lostant). Comparison of serial PSA results should be interpreted with this fact in mind. This test was performed using the Siemens chemiluminescent method. Values obtained from different assay methods cannot be used interchangeably. PSA levels, regardless of value, should not be interpreted as absolute evidence of the presence or absence of disease. LIPID PANEL (Not yet reviewe d by provider) Interpretation: Performing Lab:MARY Narvii-Anjqxe77552 Marilee Calero, [id number] Osmel Kebede MD Notes/Report: FASTING:YES FASTING: YES CHOLESTEROL, TOTAL 199 <200 mg/dL HDL CHOLESTEROL 63 > OR = 40 mg/dL TRIGLYCERIDES 100 <150 mg/dL LDL-CHOLESTEROL 115 Reference range: <100 Desirable range <100 mg/dL for primary prevention; <70 mg/dL for patients with CHD or diabetic patients with > or = 2 CHD risk factors. LDL-C is now calculated using the Jacques-Mcnulty calculation, which is a validated novel method providing better accuracy than the Friedewald equation in the estimation of LDL-C. Jacques SS et al. BILL. 2013;310(19): 8142-9063 (http://education.Axeda/faq/SPT647) CHOL/HDLC RATIO 3.2 <5.0 (calc) NON HDL CHOLESTEROL 136 <130 mg/dL (calc) For patients with diabetes plus 1 major ASCVD risk factor, treating to a non-HDL-C goal of <100 mg/dL (LDL-C of <70 mg/dL) is considered a therapeutic option. COMPREHENSIVE METABOLIC PANE L (Not yet reviewed by provider) Interpretation: Performing Lab:[facility] [employer] Yeimy-Kjrbvv02618 Marilee Calero, [id number] Osmel Kebede MD Notes/Report: FASTING:YES FASTING: YES GLUCOSE 150 65-99 mg/dL Fasting reference interval For someone without known diabetes, a glucose value >125 mg/dL indicates that they may have diabetes and this should be confirmed with a follow-up test. UREA NITROGEN (BUN) 10 7-25 mg/dL CREATININE 0.91 0.70-1.35 mg/dL EGFR 95 > OR = 60 mL/min/1.73m2 BUN/CREATININE RATIO SEE NOTE: 622 (calc) Not Reported: BUN and Creatinine are within reference range. SODIUM 133 135-146 mmol/L POTASSIUM 4.6 3.5-5.3 mmol/L CHLORIDE 98 98-110 mmol/L CARBON DIOXIDE 28 20-32 mmol/L CALCIUM 9.3 8.6-10.3 mg/dL PROTEIN, TOTAL 7.0 6.1-8.1 g/dL ALBUMIN 4.4 3.6-5.1 g/dL GLOBULIN 2.6 1.9-3.7 g/dL (calc) ALBUMIN/GLOBULIN RATIO 1.7 1.0-2.5 (calc) BILIRUBIN, TOTAL 0.4 0.2-1.2 mg/dL ALKALINE PHOSPHATASE 60 35-144 U/L AST 8 10-35 U/L ALT 6 9-46 U/L CBC (INCLUDES DIFF/PLT) (Not yet reviewed by provider) Interpretation: Performing Lab:MARY, Narvii-[id number] Marilee Calero, [id number] Osmel Kebede MD Notes/Report: FASTING:YES FASTING: YES WHITE BLOOD CELL COUNT 7.6 3.8-10.8 Thousand/ uL RED BLOOD CELL COUNT 4.65 4.20-5.80 Million/uL HEMOGLOBIN 9.8 13.2-17.1 g/dL HEMATOCRIT 34.0 38.5-50.0 % MCV 73.1 80.0-100.0 fL MCH 21.1 27.0-33.0 pg MCHC 28.8 32.0-36.0 g/dL For adults, a slight decrease in the calculated MCHC value (in the range of 30 to 32 g/dL) is most likely not clinically significant; however, it should be interpreted with caution in correlation with other red cell parameters and the patient's clinical condition. RDW 18.3 11.0-15.0 % PLATELET COUNT 633 140-400 Thousand/uL MPV 9.5 7.5-12.5 fL ABSOLUTE NEUTROPHILS 4332 6922-1703 cells/uL ABSOLUTE LYMPHOCYTES 2120 850-3900 cells/uL ABSOLUTE MONOCYTES 958 200-950 cells/uL ABSOLUTE EOSINOPHILS 129 15-500 cells/uL ABSOLUTE BASOPHILS 61 0-200 cells/uL NEUTROPHILS 57 LYMPHOCYTES 27.9 MONOCYTES 12.6 EOSINOPHILS 1.7 BASOPHILS 0.8 LIPID PANEL (Not yet reviewe d by provider) Interpretation: Performing Lab:MARY Narvii-[id number] Marilee Calero, [id number] Osmel Kebede MD Notes/Report: FASTING:YES FASTING: YES CHOLESTEROL, TOTAL 161 <200 mg/dL HDL CHOLESTEROL 55 > OR = 40 mg/dL TRIGLYCERIDES 95 <150 mg/dL LDL-CHOLESTEROL 87 Reference range: <100 Desirable range <100 mg/dL for primary prevention; <70 mg/dL for patients with CHD or diabetic patients with > or = 2 CHD risk factors. LDL-C is now calculated using the Kaleb calculation, which is a validated novel method providing better accuracy than the Friedewald equation in the estimation of LDL-C. Jacques ARREDONDO et al. BILL. 2013;310(19): 3760-8856 (http://Liveset.Axeda/faq/WEK341) CHOL/HDLC RATIO 2.9 <5.0 (calc) NON HDL CHOLESTEROL 106 <130 mg/dL (calc) For patients with diabetes plus 1 major ASCVD risk factor, treating to a non-HDL-C goal of <100 mg/dL (LDL-C of <70 mg/dL) is considered a therapeutic option. COMPREHENSIVE METABOLIC PANE L (Not yet reviewed by provider) Interpretation: Performing Lab:[facility] [employer] Yeimy-[id number] Marilee Calero, [id number] Osmel Kebede MD Notes/Report: FASTING:YES FASTING: YES GLUCOSE 96 65-99 mg/dL Fasting reference interval UREA NITROGEN (BUN) 11 7-25 mg/dL CREATININE 0.95 0.70-1.35 mg/dL EGFR 90 > OR = 60 mL/min/1.73m2 BUN/CREATININE RATIO SEE NOTE: 6-22 (calc) Not Reported: BUN and Creatinine are within reference range. SODIUM 133 135-146 mmol/L POTASSIUM 4.3 3.5-5.3 mmol/L CHLORIDE 101 98-110 mmol/L CARBON DIOXIDE 27 20-32 mmol/L CALCIUM 8.9 8.6-10.3 mg/dL PROTEIN, TOTAL 6.7 6.1-8.1 g/dL ALBUMIN 4.2 3.6-5.1 g/dL GLOBULIN 2.5 1.9-3.7 g/dL (calc) ALBUMIN/GLOBULIN RATIO 1.7 1.0-2.5 (calc) BILIRUBIN, TOTAL 0.3 0.2-1.2 mg/dL ALKALINE PHOSPHATASE 61 35-144 U/L AST 10 10-35 U/L ALT 9 9-46 U/L Reason For Referral No Information Medications Medication [...] Externally Twice a day As needed Active cloNIDine HCl 0.1 MG 1 tablet Orally 3 t imes a day Active Inderal LA 80 MG 1 capsule Orally Onc e a day Active Famotidine 20 MG TAKE 1 TABLET BY ODALIS TH DAILY AT BEDTIME; Duration: 90 Active Omeprazole 40 MG 1 capsule 30 minutes before morning meal Orally Once a day; Duration: 30 day(s) Active Atorvastatin Calcium 10 MG TAKE 1 TABLET BY MOUTH DAILY; Duration: 90 Active HYDROcodone-Acetaminophen 5-325 MG 1 tablet Orally every 8 hrs; Duration: 14 days As needed 01/26/2025 Active Amitriptyline HCl 10 MG 1 tablet at bedtime Orally Once a day As needed Active Dupixent 300 MG/2ML 2 mL Subcutaneous Ev viviane 2 weeks 02/23/2025 Active Social History Tobacco Use: Social History [...] Problem Status W/U Status Risk Notes Problem Primary insomnia (6936601) Primary insomnia (F51.01) Active confirmed Problem Chronic pain syndrome (072068330) Chronic pain syndrome (G89.4) Active confirmed Problem Cervicalgia (18322563) Cervicalgia (M54.2) Active confirmed Problem Weakness (04112329) Weakness (R53.1) Active con firmed Problem Hyperlipidemia (20776053) Hyperlipidemia (E78.5) Active confirmed Problem Hyperglycemia (39570594) Hyperglycemia (R73.9) Active confirmed Problem Gastroesophageal reflux disease without esophagitis (266728852) Gastroesophageal reflux disease without esophagitis (K21.9) Active confirmed Problem Rash (869586182) Rash (R21) Active confirmed Problem Neck pain (49015406) Neck pain (M54.2) Active confirmed Problem Anemia (594724283) Anemia (D64.9) Active confir med Problem Dyspnea on exertion (32007584) MCMULLEN (dyspnea on exertion) (R06.09) Active confirmed Problem Lumbar spondylosis (944033138) Lumbar spondylosis (M47.816) Active confirmed Problem Cervical spondylosis (432089292) Cervical spondylosis (M47.812) Active confirmed Problem Postprocedural states (908825912) Other specified postprocedural states (Z98.890) Active confirmed Problem Localized, primary osteoarthritis of the shoulder region (121884760) OA (osteoarthritis) of shoulder (M19.019) Active confirmed Problem Right shoulder pain (9403563829) Right shoulder pain (M25.511) Active confirmed Problem Atypical chest pain (162897060) Atypical chest pain (R07.89) Active confirmed Problem Eczema (35258889) Eczema (L30.9) Active confirm ed Problem History of neck injury (Z87.828) Active confirmed Problem Obstructive sleep apnea syndrome (22706627) RAMONA on CPAP (G47.33) Active confirmed Problem Glaucoma (17955253) Glaucoma of both eyes, unspecified glaucoma type (H40.9) Active confirmed Problem Attention deficit hyperactivity disorder (826429467) Adult ADHD (F90.9) Active confirmed Problem Tardive dyskinesia (523232342) Tardive dyskinesia (G24.01) Active confirmed Problem Primary fusion of cervical spine (134599371) 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) Active confirmed Vital Signs Heart Rate 75 /min 02/23/2025 TM Temperature 97.2 degrees Fahrenheit 02/23/2025 TM Respiratory Rate 16 /min 02/23/2025 TM Blood pressure diastolic 68 mm Hg 02/23/2025 TM Oximetry 96 % 02/23/2025 TM Height 71 in 02/23/2025 TM Blood pressure systolic 110 mm Hg 02/23/2025 TM Weight 147 lbs 02/23/2025 TM BMI 20.5 kg/m2 02/23/2025 TM Encounters Encounter Location Date Provider Diagnosis [facility] [address] [address] 03/08/2024 Judd Other hyperlipidemia E78.49 ; Gastroesophageal reflux disease without esophagitis K21.9 ; Cervicalgia M54.2 ; Chronic pain syndrome G89.4 and Acquired fusion of cervical spine M43.22 [facility] [address] [address] 03/23/2024 Judd Gastroesophageal ref lux disease without esophagitis K21.9 ; Other hyperlipidemia E78.49 ; Adult ADHD F90.9 ; Tardive dyskinesia G24.01 and Chronic pain syndrome G89.4 [facility] [address] [address] 04/06/2024 Judd Gastroesophageal ref lux disease without esophagitis K21.9 ; Other hyperlipidemia E78.49 ; Hyperglycemia R73.9 ; Tardive dyskinesia G24.01 and Chronic pain syndrome G89.4 [facility] [address] [address] 05/05/2024 Judd Other hyperlipidemia E78.49 ; Gastroesophageal reflux disease without esophagitis K21.9 ; Hyperglycemia R73.9 ; Adult ADHD F90.9 ; Tardive dyskinesia G24.01 and Chronic pain syndrome G89.4 [facility] [address] [address] 05/30/2024 Judd Lazaro Right shoulder pain M25.511 ; Other hyperlipidemia E78.49 ; Gastroesophageal reflux disease without esophagitis K21.9 ; Hyperglycemia R73.9 and Adult ADHD F90.9 [facility] [address] [address] 06/13/2024 Judd Lazaro Neck pain M54.2 ; Ri ght shoulder pain M25.511 ; Other hyperlipidemia E78.49 ; Gastroesophageal reflux disease without esophagitis K21.9 ; Tardive dyskinesia G24.01 and Adult ADHD F90.9 [facility] [address] [address] 07/07/2024 Judd Lazaro Neck pain M54.2 ; Ri ght shoulder pain M25.511 ; Other hyperlipidemia E78.49 ; Gastroesophageal reflux disease without esophagitis K21.9 ; Hyperglycemia R73.9 and Lumbar spondylosis M47.816 [facility] [address] [place] [phone] 07/26/2024 Judd Lazaro Cervical spondylosis M47.812 ; OA (osteoarthritis) of shoulder M19.019 ; Nausea & vomiting R11.2 ; Gastroesophageal reflux disease without esophagitis K21.9 and Weakness R53.1 [facility] [address] [place] [phone] 08/09/2024 Judd Lazaro Hyperlipidemia E78.5 ; Gastroesophageal reflux disease without esophagitis K21.9 ; Neck pain M54.2 ; Cervical spondylosis M47.812 and Weakness R53.1 [facility] [address] [place] [phone] 08/23/2024 Judd Lazaro Hyperlipidemia E78.5 ; Gastroesophageal reflux disease without esophagitis K21.9 ; Hyperglycemia R73.9 ; Adult ADHD F90.9 ; Tardive dyskinesia G24.01 ; Neck pain M54.2 and Anemia D64.9 [facility] [address] [place] [phone] 09/05/2024 Judd Lazaro Gastroesophageal ref lux disease without esophagitis K21.9 ; Hyperlipidemia E78.5 ; Cervical spondylosis M47.812 ; Neck pain M54.2 ; OA (osteoarthritis) of shoulder M19.019 and Chronic pain syndrome G89.4 [facility] [address] [place] [phone] 09/19/2024 Judd Lazaro Hyperlipidemia E78.5 ; Gastroesophageal reflux disease without esophagitis K21.9 ; Tardive dyskinesia G24.01 ; History of neck injury Z87.828 ; Lumbar spondylosis M47.816 and Adult ADHD F90.9 [facility] [address] [address] 10/03/2024 Judd Lazaro Hyperlipidemia E78.5 ; Gastroesophageal reflux disease without esophagitis K21.9 ; Lumbar spondylosis M47.816 ; Neck pain M54.2 and Chronic pain syndrome G89.4 [facility] [address] [address] 10/17/2024 Judd Lazaro Hyperlipidemia E78.5 ; Gastroesophageal reflux disease without esophagitis K21.9 ; Lumbar spondylosis M47.816 ; Chronic pain syndrome G89.4 and Anemia D64.9 [facility] [address] [address] 10/31/2024 Judd Lazaro Hyperlipidemia E78.5 ; Gastroesophageal reflux disease without esophagitis K21.9 ; Hyperglycemia R73.9 ; Adult ADHD F90.9 ; Tardive dyskinesia G24.01 ; Lumbar spondylosis M47.816 and Chronic pain syndrome G89.4 [facility] [address] [address] 11/14/2024 Judd Lazaro Hyperlipidemia E78.5 ; Gastroesophageal reflux disease without esophagitis K21.9 ; Cervical spondylosis M47.812 ; OA (osteoarthritis) of shoulder M19.019 and Chronic pain syndrome G89.4 [facility] [address] [address] 12/02/2024 Judd Lazaro Hyperlipidemia E78.5 ; Gastroesophageal reflux disease without esophagitis K21.9 ; Adult ADHD F90.9 ; Lumbar spondylosis M47.816 ; Chronic pain syndrome G89.4 and OA (osteoarthritis) of shoulder M19.019 [facility] [address] [address] 12/15/2024 Judd Lazaro Hyperlipidemia E78.5 ; Adult ADHD F90.9 ; OA (osteoarthritis) of shoulder M19.019 and Chronic pain syndrome G89.4 [facility] [address] [address] 12/29/2024 Judd Lazaro Hyperlipidemia E78.5 ; Gastroesophageal reflux disease without esophagitis K21.9 ; Hyperglycemia R73.9 ; Adult ADHD F90.9 ; Tardive dyskinesia G24.01 ; Neck pain M54.2 and Cervical spondylosis M47.812 [facility] [address] [address] 01/12/2025 Judd Lazaro Hyperlipidemia E78.5 ; Lumbar spondylosis M47.816 ; Cervicalgia M54.2 ; Anemia D64.9 and Chronic pain syndrome G89.4 [facility] [address] [address] 01/26/2025 Judd Lazaro Hyperlipidemia E78.5 ; Gastroesophageal reflux disease without esophagitis K21.9 ; Hyperglycemia R73.9 ; Tardive dyskinesia G24.01 ; Primary insomnia F51.01 ; Cervical spondylosis M47.812 and Chronic pain syndrome G89.4 [facility] [address] [address] 02/09/2025 Judd Lazaro Hyperlipidemia E78.5 ; Gastroesophageal reflux disease without esophagitis K21.9 ; Tardive dyskinesia G24.01 ; Weakness R53.1 ; Cervical spondylosis M47.812 ; RAMONA on CPAP G47.33 and Rash R21 [facility] [address] [address] 02/23/2025 Jdud Atypical chest pain R07.89 ; MCMULLEN (dyspnea on exertion) R06.09 ; Hyperlipidemia E78.5 ; Gastroesophageal reflux disease without esophagitis K21.9 ; Tardive dyskinesia G24.01 ; Cervical spondylosis M47.812 and Chronic pain syndrome G89.4 [facility] [address] [address] [facility] [address] [address] [facility] [address] [address] [facility] [address] [place] [address] 05/05/2024 Judd Lazaro [facility] [address] [place] [address] 05/30/2024 Judd Lazaro [facility] [address] [address] 06/13/2024 Judd Lazaro [facility] [address] [place] [address] 07/07/2024 Judd Lazaro [facility] [address] [place] [address] 07/26/2024 Judd Lazaro [facility] [address] [facility] [place] [address] 08/09/2024 Judd Lazaro [facility] [address] [facility] [place] [address] 08/23/2024 Judd Lazaro [facility] [address] [facility] [place] [address] 09/05/2024 Judd Lazaro [facility] [address] [facility] [place] [address] 09/19/2024 Judd Lazaro [facility] [address] [facility] [address] [place] [address] 10/03/2024 Judd Lzaaro [facility] [address] [facility] [address] [place] [address] 10/17/2024 Judd Lazaro [facility] [address] [facility] [address] [place] [address] 10/31/2024 Judd Lazaro [facility] [address] [facility] [address] [place] [address] 11/14/2024 Judd Lazaro [facility] [address] [place] [address] 12/02/2024 Judd Lazaro [facility] [address] [facility] [address] [place] [address] 12/16/2024 Judd Lazaro [facility] [address] [facility] [address] [place] [address] 12/29/2024 [facility] [address] [facility] [address] [place] [address] 01/12/2025 Judd [facility] [address] [facility] 2 [place] [address] 01/26/2025 Judd [facility] [address] [facility] [address] [place] [address] 02/09/2025 Judd [facility] [address] [facility] [address] [place] [address] 02/23/2025 Judd Lazaro Assessments Encounter Date Diagnosis (ICD Code) Assessment Notes Treatment Notes Treatment Clinical Notes Section Notes 03/08/2024 Gastroesophageal reflux disease without esophagitis (ICD-10 [...] Disease (GERD): Care Instructions material was printed 09/19/2024 Hyperlipidemia (ICD-10 - E78.5) High Cholesterol: Care Instructions material was printed 10/03/2024 Hyperlipidemia (ICD-10 - E78.5) High Cholesterol: Care Instructions material was printed 10/17/2024 Hyperlipidemia (ICD-10 - E78.5) High Cholesterol: Care Instructions material was printed 10/31/2024 Hyperlipidemia (ICD-10 - E78.5) High Cholesterol: Care Instructions material was printed 11/14/2024 Hyperlipidemia (ICD-10 - E78.5) High Cholesterol: Care Instructions material was printed 12/02/2024 Hyperlipidemia (ICD-10 - E78.5) High Cholesterol: Care Instructions material was printed 12/15/2024 Hyperlipidemia (ICD-10 - E78.5) High Cholesterol: Care Instructions material was printed 12/29/2024 Hyperlipidemia (ICD-10 - E78.5) High Cholesterol: Care Instructions material was printed 01/12/2025 Hyperlipidemia (ICD-10 - E78.5) High Cholesterol: Care Instructions material was printed 01/26/2025 Hyperlipidemia (ICD-10 - E78.5) High Cholesterol: Care Instructions material was printed 02/09/2025 Hyperlipidemia (ICD-10 - E78.5) High Cholesterol: Care Instructions material was printed 02/09/2025 Gastroesophageal reflux disease without esophagitis (ICD-10 - K21.9) 02/23/2025 MCMULLEN (dyspnea on exertion) (ICD-10 - R06.09) 02/23/2025 Atypical chest pain (ICD-10 - R07.89) Musculoskeletal Chest Pain: Care Instructions material was printed 02/09/2025 Tardive dyskinesia (ICD-10 - G24.01) 02/23/2025 Hyperlipidemia (ICD-10 - E78.5) 01/26/2025 Gastroesophageal reflux disease without esophagitis (ICD-10 - K21.9) 01/12/2025 Lumbar spondylosis (ICD-10 - M47.816) 12/15/2024 Adult ADHD (ICD-10 - F90.9) 12/29/2024 Gastroesophageal reflux disease without esophagitis (ICD-10 - K21.9) 12/02/2024 Gastroesophageal reflux disease without esophagitis (ICD-10 - K21.9) 11/14/2024 Gastroesophageal reflux disease without esophagitis (ICD-10 - K21.9) 10/31/2024 Gastroesophageal reflux disease without esophagitis (ICD-10 - K21.9) 10/17/2024 Gastroesophageal reflux disease without esophagitis (ICD-10 - K21.9) 10/03/2024 Gastroesophageal reflux disease without esophagitis (ICD-10 - K21.9) 09/19/2024 Gastroesophageal reflux disease without esophagitis (ICD-10 - K21.9) 09/05/2024 Cervical spondylosis (ICD-10 - M47.812) 08/23/2024 Hyperglycemia (ICD-10 - R73.9) 08/09/2024 Gastroesophageal reflux disease without esophagitis (ICD-10 [...] E78.49) 03/23/2024 Other hyperlipidemia (ICD-10 - E78.49) 03/23/2024 Adult ADHD (ICD-10 - F90.9) 03/08/2024 Chronic pain syndrome (ICD-10 - G89.4) 04/06/2024 Hyperglycemia (ICD-10 - R73.9) 05/05/2024 Hyperglycemia (ICD-10 - R73.9) 05/30/2024 Gastroesophageal reflux disease without esophagitis (ICD-10 - K21.9) Gastroesophageal Reflux Disease (GERD): Care Instructions material was printed 06/13/2024 Other hyperlipidemia (ICD-10 - E78.49) 07/07/2024 Other hyperlipidemia (ICD-10 - E78.49) 07/26/2024 Nausea & vomiting (ICD-10 - R11.2) 08/09/2024 Neck pain (ICD-10 - M54.2) 09/05/2024 Neck pain (ICD-10 - M54.2) 08/23/2024 Adult ADHD (ICD-10 - F90.9) 09/19/2024 Tardive dyskinesia (ICD-10 - G24.01) 10/03/2024 Lumbar spondylosis (ICD-10 - M47.816) 10/17/2024 Lumbar spondylosis (ICD-10 - M47.816) 10/31/2024 Hyperglycemia (ICD-10 - R73.9) 11/14/2024 Cervical spondylosis (ICD-10 - M47.812) 12/02/2024 Adult ADHD (ICD-10 - F90.9) 12/29/2024 Hyperglycemia (ICD-10 - R73.9) 12/15/2024 OA (osteoarthritis) of shoulder (ICD-10 - M19.019) 01/12/2025 Cervicalgia (ICD-10 - M54.2) 01/26/2025 Hyperglycemia (ICD-10 - R73.9) 02/09/2025 Weakness (ICD-10 - R53.1) 02/23/2025 Gastroesophageal reflux disease without esophagitis (ICD-10 - K21.9) 02/23/2025 Tardive dyskinesia (ICD-10 - G24.01) 01/26/2025 Tardive dyskinesia (ICD-10 - G24.01) 02/09/2025 Cervical spondylosis (ICD-10 - M47.812) 01/12/2025 Anemia (ICD-10 - D64.9) 12/29/2024 Adult ADHD (ICD-10 - F90.9) 12/15/2024 Chronic pain syndrome (ICD-10 - G89.4) 10/31/2024 Adult ADHD (ICD-10 - F90.9) 12/02/2024 Lumbar spondylosis (ICD-10 - M47.816) 11/14/2024 OA (osteoarthritis) of shoulder (ICD-10 - M19.019) 10/17/2024 Chronic pain syndrome (ICD-10 - G89.4) 10/03/2024 Neck pain (ICD-10 - M54.2) 09/19/2024 History of neck injury (ICD-10 - Z87.828) 09/05/2024 OA (osteoarthritis) of shoulder (ICD-10 - M19.019) 08/23/2024 Tardive dyskinesia (ICD-10 - G24.01) 08/09/2024 Cervical spondylosis (ICD-10 - M47.812) 07/07/2024 Gastroesophageal reflux disease without esophagitis (ICD-10 - K21.9) Gastroesophageal Reflux Disease (GERD): Care Instructions material was printed 07/26/2024 Gastroesophageal reflux disease without esophagitis (ICD-10 - K21.9) 06/13/2024 Gastroesophageal reflux disease without esophagitis (ICD-10 - K21.9) 05/30/2024 Hyperglycemia (ICD-10 - R73.9) 05/05/2024 Adult ADHD (ICD-10 - F90.9) 03/23/2024 Tardive dyskinesia (ICD-10 - G24.01) 04/06/2024 Tardive dyskinesia (ICD-10 - G24.01) 03/08/2024 Acquired fusion of cervical spine (ICD-10 - M43.22) 03/23/2024 Chronic pain syndrome (ICD-10 - G89.4) 04/06/2024 Chronic pain syndrome (ICD-10 - G89.4) 05/05/2024 Tardive dyskinesia (ICD-10 - G24.01) 05/30/2024 Adult ADHD (ICD-10 - F90.9) 07/26/2024 Weakness (ICD-10 - R53.1) 06/13/2024 Tardive dyskinesia (ICD-10 - G24.01) 07/07/2024 Hyperglycemia (ICD-10 - R73.9) 08/09/2024 Weakness (ICD-10 - R53.1) 09/05/2024 Chronic pain syndrome (ICD-10 - G89.4) 08/23/2024 Neck pain (ICD-10 - M54.2) 09/19/2024 Lumbar spondylosis (ICD-10 - M47.816) 10/03/2024 Chronic pain syndrome (ICD-10 - G89.4) 10/17/2024 Anemia (ICD-10 - D64.9) 12/02/2024 Chronic pain syndrome (ICD-10 - G89.4) 10/31/2024 Tardive dyskinesia (ICD-10 - G24.01) 11/14/2024 Chronic pain syndrome (ICD-10 - G89.4) 12/29/2024 Tardive dyskinesia (ICD-10 - G24.01) 01/12/2025 Chronic pain syndrome (ICD-10 - G89.4) 01/26/2025 Primary insomnia (ICD-10 - F51.01) 02/09/2025 RAMONA on CPAP (ICD-10 - G47.33) 02/23/2025 Cervical spondylosis (ICD-10 - M47.812) 02/23/2025 Chronic pain syndrome (ICD-10 - G89.4) 02/09/2025 Rash (ICD-10 - R21) 01/26/2025 Cervical spondylosis (ICD-10 - M47.812) 12/29/2024 Neck pain (ICD-10 - M54.2) 12/02/2024 OA (osteoarthritis) of shoulder (ICD-10 - M19.019) 10/31/2024 Lumbar spondylosis (ICD-10 - M47.816) 09/19/2024 Adult ADHD (ICD-10 - F90.9) 08/23/2024 Anemia (ICD-10 - D64.9) 07/07/2024 Lumbar spondylosis (ICD-10 - M47.816) 06/13/2024 Adult ADHD (ICD-10 - F90.9) 05/05/2024 Chronic pain syndrome (ICD-10 - G89.4) 10/31/2024 Chronic pain syndrome (ICD-10 - G89.4) 12/29/2024 Cervical spondylosis (ICD-10 - M47.812) 01/26/2025 Chronic pain syndrome (ICD-10 - G89.4) Plan Of Treatment Pending Test Test Name Order Date LIPID PANEL 09/23/2023 LIPID PANEL 12/20/2024 LIPID PANEL 01/10/2025 BASIC METABOLIC PANEL 12/28/2023 BASIC METABOLIC PANEL 04/15/2024 COMPREHENSIVE METABOLIC PANEL 09/23/2023 COMPREHENSIVE METABOLIC PANEL 01/10/2025 COMPREHENSIVE METABOLIC PANEL 12/20/2024 COMPREHENSIVE METABOLIC PANEL 08/15/2024 COMPREHENSIVE METABOLIC PANEL 10/07/2024 CBC (INCLUDES DIFF/PLT) 10/07/2024 CBC (INCLUDES DIFF/PLT) 08/15/2024 CBC (INCLUDES DIFF/PLT) 12/20/2024 CBC (INCLUDES DIFF/PLT) 09/23/2023 CBC (INCLUDES DIFF/PLT) 04/15/2024 CBC (INCLUDES DIFF/PLT) 12/28/2023 URINALYSIS, COMPLETE W/REFLEX TO CULTURE 09/24/2023 SED RATE BY MODIFIED WESTERGREN 09/23/19 RHEUMATOID FACTOR 09/23/2023 AGNES IFA SCREEN W/REFL TO TITER AND NEIL EVANS, IFA 09/23/2023 HEMOGLOBIN A1c 09/23/2023 PSA, TOTAL 09/23/2023 PSA, TOTAL 10/07/2024 T4, FREE 09/23/2023 TSH 09/23/2023 T3, FREE 09/23/2023 REFLEXIVE URINE CULTURE 09/24/2023 Next Appt Details Provider Name:Judd mann, 03/09/2025 02:15:00 PM, [address] [facility] [address], [place], [address], Insurance Providers Payer Name Payer Address Payer Phone Subscriber Number Group Number Insured Name Patient Relationship to Insured Coverage Start Date Coverage End Date [facility] [address] [place] [address] [id number] Gustabo Lemus Self - patient is the insured Medical (General) History Medical History History ICD Code ADHD Tard. Dyskinesia Surgical History Surgery Date(Month/Year) Perferated colon 2021 Esophegeal repair 2022 Plate in neck 2022
--- OUTSIDE RECORDS SUMMARY | 2025-02-28 14:03 | XMS_ITS | Encounter Summary ---
Author Organization [facility] Address [address] [place] [address] Care Team Providers Care Professor Of Violin Name Role Phone KarthikAye Unavailable Unavailable Leroy Caballero MD Primary Care Provider Umberto Nguyen MD Primary Care Provider Juanjo Dowell MD Primary Care Provider [phone] Umberto Nguyen MD Primary Care Provider [phone] Spike Etienne MD Unavailable Niyah Bush MD Primary Care Provider Umberto Nguyen MD Primary Care Provider Spike Etienne MD Primary Care Provider [phone] Spike Etienne MD Primary Care Provider [phone] Spike Etienne MD Primary Care Provider [phone] Tiffany Dennis DO Primary Care Provider [phone] Bailee DUGGAN MD, Fred R Primary Care Provider + Tiffany Dennis DO Primary Care Provider Spike Etienne MD Primary Care Provider [phone] Umberto Nguyen MD Primary Care Provider Mari Lazaro MD Primary Care Provider Encounter Details Date Type Department Care Team (Late st Contact Info) Description 04/26/2018 Testing Visit [facility] [address] [place] [id number] Juana Johansen, POURER [address] [place] [phone] Social History Tobacco Use Types Packs/Day Years [...] 12:45 AM DONALDT Ankita Prieto RN * Is person blind or have serious difficulty seeing? Answer Date of Assessment Author Yes 10/09/2017 12:45 AM DONALDT Ankita Prieto, CRISTINA * Does person have serious difficulty walking/climbing stairs? Answer Date of Assessment Author No 10/09/2017 12:45 AM Ankita Peralta, CRISTINA * Does person have difficulty dressing/bathing? Answer Date of Assessment Author No 10/09/2017 12:45 AM Ankita Peralta, CRISTINA * Does person have difficulty doing errands alone? Answer Date of Assessment Author No 10/09/2017 12:45 AM Ankita Peralta RN documented as of this encounter Mental Status * Does person have difficulty concentrating/remembering/making decisions? Answer Entry Date Author Yes 10/09/2017 12:45 AM Ankita Peralta RN documented in this encounter Progress Notes * Juana Deleon, POURER - 04/26/2018 11:14 AM CST Speech Language/Pathology Speech Therapy Modified Barium Swallow [id number] Date of : 1960 Age: 57 y.o. [...] Last 3 Encounters: 03/30/18 1.803 m (5' 11) 03/03/18 1.803 m (5' 11) 01/28/18 1.803 m (5' 11) PMH: Pulmonary status: WNL Pulmonary history: None [...] in conjunction with radiology using lateral and aguwhjfh-se-kfonoiwoo views. The patient was given the following [...] swallowing strategies and/or recommendations and verbalize understanding. Senior Living Goal(s): Patient to tolerate least restrictive diet without complications. Plan: Recommend referral to GI for further evaluation. Consider esophageal diet: Small frequent meals Soft/moist solids Avoid dry/dense/string textures Alternate liquids and solids Flush medications carefully to avoid pill induced esophagitis Swallow strategy: Drink one sip at a time and avoid drinking rapidly. Careful ISRAEL precautions. Oral hygiene at least twice each day. Juana Dleeon MA, CCC-POURER Speech Language Pathologist Department of Otolaryngology- Head and Neck Surgery WABLE ENERGY TRADER documented in this encounter Plan of Treatment Upcoming Encounters Date Type Department Care Team (Late st Contact Info) Description 08/22/2025 1:45 PM CDT Office Visit [facility] - Orthopedics [address] [place] [address], [facility] [place] [address] Matthew Sofia MD [address] [place] [address] documented as of this encounter Visit Diagnoses Not on filedocumented in this encounter Care Teams Professor Of Violin Relationship Specialty Start Date End Date Leroy Caballero MD PCP - General 11/17/17 05/18/18 Umberto Nguyen MD PCP - General 05/19/18 08/31/18 Juanjo Dowell MD [address] [place] [address] PCP - General Internal Medicine 09/01/18 09/02/18 Umberto Nguyen MD PCP - General 09/03/18 01/20/19 Niyah Bush MD [address] [place] [address] PCP - General Internal Medicine 01/22/19 01/22/19 Umberto Nguyen MD PCP - General 01/23/19 02/10/19 Spike Etienne MD [address] [place] [address] PCP - General 02/11/19 02/22/19 Spike Etienne MD [address] [place] [address] PCP - General 03/21/19 06/28/19 Spike Etienne MD [address] [place] [address] PCP - General 06/29/19 10/24/19 Tiffany Dennis DO [address] [place] [address] PCP - General 10/25/19 10/31/19 Celestino Morocho III, MD [address] [place] [address] PCP - General Internal Medicine 11/01/19 11/09/19 Tiffany Dennis DO [address] [place] [address] PCP - General 11/10/19 12/01/19 Spike Etienne MD [address] [place] [address] PCP - General 01/17/21 09/22/22 Umberto Nguyen MD [address] [place] [address] PCP - General Family Medicine 09/23/22 10/19/23 Mari Lazaro MD [address] [place], [place] [id number] PCP - General Internal Medicine 10/20/23 Aye Angeles Bilingual Sales Consultant Psychiatry 11/05/17 09/21/18 Spike Etienne MD [address] [place] [address] Resident - PCP General Medicine 01/21/19 01/08/21 documented as of this encounter
--- OUTSIDE RECORDS SUMMARY | 2025-02-28 14:05 | XMS_ITS | Clinical Summary ---
Author Organization [facility] [address] Address [address] [place] [address] Care Team Providers Care Membership Administrator Name Role Phone Unavailable Primary Care Provider Unavailabl e Social History Tobacco Use Types Packs/Day Years Used Date Smoking Tobacco: Never Assessed Sex and Gender Information Value Date Recorded Sex Assigned at Not on file Legal Sex Male 3:12 PM CDT Gender Identity Not on file Sexual Orientation Not on file Plan of Treatment Upcoming Encounters Date Type Department Care Team ([facility] st Contact Info) Description 03/07/2025 10:30 AM DOCUMENT CONTROL SUPERVISOR Office Visit [facility] - [place] [place] [address] Ronit Mosqueda MD [address] [place] [address] Health Maintenance Due Date Last Done Comments DTAP/TDAP/TD VACCINES (1 - Tdap) 1980 COLORECTAL SCREENING 2006 Colorectal Cancer Screening 2006 FIT-DNA Q 3 years 2006 FIT/FOBT Q 1 year 2006 Flex Sig/CT Colonography Q 5 years 2006 ZOSTER VACCINE (1 of 2) 10/14/2011 INFLUENZA VACCINE (#1) 2024 RSV VACCINE (60+ or ) (1 - 1-dose 75+ series) 2036 Insurance [facility] MEDICAID
--- OUTSIDE RECORDS SUMMARY | 2025-02-28 14:05 | XMS_ITS | Clinical Summary ---
Author Organization [facility] Address [address] [place] [phone] Care Team Providers Care Toddler Caregiver Name Role Phone Judd Lazaro MD Primary Care Provider [phone] Allergies Active Allergy Reactions Criticality Noted Date Comments Diphenhydramine Hives,Urticaria Medium 07/01/2017 Hives Iodinated Contrast Media Rash Medium 01/05/2025 Unverified allergy, mild, hives; Iodine allergy causes hives-CRISTINA CASTILLO Iodine Hives Medium 07/01/2017 Hives Morphine Rash Medium 07/01/2017 Rash Povidone-Iodine Urticaria Medium 04/21/2016 Valproic Acid Urticaria Medium 02/16/2019 Medications acetaminophen (TYLENOL) 325 mg tablet Take 2 tablets (650 mg total) by mouth every 4 (four) hours as needed 9 Active amitriptyline (ELAVIL) 25 mg tablet Take 1 tablet (25 mg total) by mouth nightly Active buPROPion XL (WELLBUTRIN XL) 300 mg 24 hr tablet Take 1 tablet (300 mg total) by mouth every morning Active cloNIDine (CATAPRES) 0.1 mg tablet Take 1 tablet (0.1 mg total) by mouth 3 (three) times a day 4 Active latanoprost (XALATAN) 0.005 % ophthalmic solution Administer 1 drop into both eyes nightly 9 Active omeprazole (PriLOSEC) 40 mg capsule Take 1 capsule (40 mg total) by mouth daily 9 Active OLANZapine (ZyPREXA) 2.5 mg tablet Take 1 tablet (2.5 mg total) by mouth daily Active propranolol LA (INDERAL LA) 80 mg 24 hr capsule Take 1 capsule (80 mg total) by mouth daily Active atorvastatin (LIPITOR) 40 mg tablet Take 1 tablet (40 mg total) by mouth daily Active Active Problems Problem Noted Date Diagnosed Date RAMONA (obstructive sleep apnea) 01/05/2025 Restless legs 01/05/2025 Psychophysiological insomnia 01/05/2025 Nonsmoker 01/05/2025 Encounters Date Type Department Care Team Description 02/07/2025 Telephone [facility] [address] [place] [address] Clare Estrada, [facility] Sleep Study Results 02/06/2025 Orders Only [facility] [address] [place] [phone] Adrian Shelton MD RAMONA (obstructive sleep apnea) (Primary Dx) 02/02/2025 7:35 PM CDT - 02/02/2025 11:59 PM CDT Hospital Encounter [facility] [address] [place] [address] RAMONA (obstructive sleep apnea); Restless legs; Psychophysiological insomnia; Nonsmoker Discharge Disposition: Discharge to home or self care 01/05/2025 1:15 PM CDT Office Visit [facility] [address] [place] [phone] Adrian Shelton MD RAMONA (obstructive sleep apnea) (Primary Dx); Restless legs; Psychophysiological insomnia; Nonsmoker from Last 3 Months Social History Tobacco Use Types Packs/Day Years Used Date Smoking Tobacco: Never Passive Smoke Exposure: Never Smokeless Tobacco: Never Tobacco Cessation:Counseling Given: Not Answered Sex and Gender Information Value Date Recorded Sex Assigned at Not on file 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 Gender Identity Not on file Sexual Orientation Not on file Last Filed Vital Signs Vital Sign Reading Time Taken Comments Blood Pressure 82/57 01/05/2025 1:17 PM CDT Pulse 69 01/05/2025 1:11 PM CDT Temperature 36.3 C (97.3 F) 07/01/2017 9:46 AM CDT Respiratory Rate 18 01/05/2025 1:11 PM CDT Oxygen Saturation 99% 01/05/2025 1:11 PM CDT Inhaled Oxygen Concentration - - Weight 69.9 kg (154 lb) 01/05/2025 1:11 PM CDT Height 180.3 cm (5' 11) 01/05/2025 1:11 PM CDT Body Mass Index 21.48 01/05/2025 1:11 PM CDT Plan of Treatment Health Maintenance Due Date Last Done Comments Colon Cancer Screening-Colonoscopy 1960 Depression Screening 1960 Hepatitis C Screening 1960 Prostate Cancer Screening-PSA 1960 Hepatitis B Screening 10/14/1979 Regular Well Visit/Exam 18-64 10/14/1979 Zoster Vaccine (1 of 2) 10/14/2011 DTaP/Tdap/Td Vaccine (2 - Td or Tdap) 10/01/2023 09/30/2013 Covid-19 Vaccine (3 - season) 2024 10/27/2020, 10/06/2020 Influenza Vaccine (#1) 2024 3, 02/06/2020, 01/20/2019, Additional history exists Pneumococcal vaccine <65 Aged Out 12/03/2014 No longer eligible based on patient's age to complete this topic Procedures Procedure Name Priority Date/Time Associated Diagnosis Comments PSG (SIMPLE) Routine 02/07/2025 12:30 PM CDT RAMONA (obstructive sleep apnea) Restless legs Psychophysiological insomnia Nonsmoker from Last 3 Months Results * PSG (02/07/2025 12:30 PM CDT) us Adrian Shelton MD [facility] ORDERABLES Fin al Result [facility] [address] [place] [address], [facility] from Last 3 Months Insurance Care Teams Toddler Caregiver Relationship Specialty Start Date End Date Judd Lazaro MD [address] [place] [address] PCP - General Internal Medicine 09/23/23
--- OUTSIDE RECORDS SUMMARY | 2025-02-28 14:05 | XMS_ITS | Encounter Summary ---
Author Organization [facility] Address [address] [place] [address] Care Team Providers Care Marine Steam Fitter Name Role Phone Spike Etinene MD Unavailable Umberto Nguyen MD Primary Care Provider [phone] Spike Etienne MD Primary Care Provider Spike Etienne MD Primary Care Provider [phone] Spike Etienne MD Primary Care Provider [phone] Tiffany Dennis DO Primary Care Provider [phone] Bailee DUGGAN MD, Celestino Carpio Primary Care Provider + Tiffany Dennis DO Primary Care Provider [phone] Spike Etienne MD Primary Care Provider Umberto Nguyen MD Primary Care Provider [phone] Mari Lazaro MD Primary Care Provider Reason for Visit * Reason Onset Date Comments Order 01/26/2019 ordered colonosc opy, TTG and anti endomysial IgA lab Medication Issue 01/26/2019 ferrous sulfate 325 (65 FE) MG 1 tab daily Encounter Details Date Type Department Care Team (Late st Contact Info) Description 01/26/2019 Telephone [facility] [address] [address] Umberto Nguyen MD [address] [place] [address] Order (ordered colonoscopy, TTG and [...] Assessment Author No 09/16/2018 9:21 PM DONALDT Kyaley Minaya RN * Does person have serious [...] like MD to order a stress test [phone] documented in this encounter Plan of Treatment Upcoming Encounters Date Type Department Care Team (Late st Contact Info) Description 08/22/2025 1:45 PM CDT Office Visit [facility] - Orthopedics [address] [place] [address], [facility] [place] [phone] Matthew Sofia MD [address] [place] [phone] documented as of this encounter Goals Goal [...] on filedocumented in this encounter Care Teams Marine Steam Fitter Relationship Specialty Start Date End Date Umberto Nguyen MD PCP - General 01/23/19 02/10/19 Spike Etienne MD PCP - General 02/11/19 02/22/19 Spike Etienne MD PCP - General 03/21/19 06/28/19 Spike Etienne MD PCP - General 06/29/19 10/24/19 Tiffany Dennis DO [address] [place] [address] PCP - General 10/25/19 10/31/19 Celestino Morocho III, MD [address] [place] [address] PCP - General Internal Medicine 11/01/19 11/09/19 Tiffany Dennis DO [address] [place] [address] PCP - General 11/10/19 12/01/19 Spike Etienne MD PCP - General 01/17/21 09/22/22 Umberto Nguyen MD [address] [place] [address] PCP - General Family Medicine 09/23/22 10/19/23 Mari Lazaro MD [address] [place], [place] [id number] PCP - General Internal Medicine 10/20/23 Spike Etienne MD Resident - PCP General Medicine 01/21/19 01/08/21 documented as of this encounter
== END 2025-02-28 13:56 | disposition home or self-care (01) ==
PROVIDERS: PCP Internal Medicine; Visit Provider Internal Medicine
DX: R07.89 Other chest pain (principal); R06.09 Other forms of dyspnea
CPT/HCPCS: 71046

== ENCOUNTER 2025-03-07 11:33 | Outpatient (CLI) | payer OTHER, SELFPAY ==
[2025-03-07 11:48] LABS: Hematocrit 27.3 % (42.0-52.0); Hemoglobin 7.7 g/dL (14.0-18.0); Immature Granulocyte Percent A 1.3 % (0-0.5); Immature Reticulocyte Fraction 36.9 % (3.0-15.9); Lymphocytes Absolute Auto 2.28 K/mm3 (0.9-3.2); Mean Corpuscular HGB Conc 28.2 g/dl (32-36); Mean Corpuscular Hemoglobin 17.9 pg (26-34); Mean Corpuscular Volume 63.6 fl (80-100); Nucleated Red Blood Cells Absolute Auto 0.000 K/mm3 (0.0-0.012); Nucleated Red Blood Cells Perc 0.0 % (0.0-0.2); Red Blood Count 4.29 M/mm3 (4.6-6.20); Reticulocyte Hemoglobin Conten 17.0 pg (28.2-36.6); Reticulocytes Absolute 0.06 10^6/uL (0.02-0.10); White Blood Count 11.3 K/mm3 (4.5-10.0)
[2025-03-07 11:54] LABS: Immature Platelet Fraction Pct 2.2 % (0.9-11.2); Platelet Count Result 476 k/mm3 (150-375)
[2025-03-07 12:03] LABS: Schistocytes None Seen
[2025-03-07 12:04] LABS: Anisocytosis 1+; Hypochromasia 1+; Ovalocytes 1+
[2025-03-07 16:17] LABS: Alanine Aminotransferase 15 U/L (6-50); Albumin Level 4.0 g/dL (3.5-5.1); Alkaline Phosphatase 72 U/L (38-126); Anion Gap 7 mmol/L (4-12); Aspartate Amino Transferase 51 U/L (17-59); Bilirubin,Total 0.3 mg/dL (0.2-1.3); Blood Urea Nitrogen 12 mg/dL (9-20); Calcium 9.0 mg/dL (8.4-10.2); Carbon Dioxide 26 mmol/L (22-30); Chloride 97 mmol/L (98-107); Estimated Glomerular Filt Rate > 60; Glucose 91 mg/dL (65-110); Potassium 4.2 mmol/L (3.4-5.0); Sodium 130 mmol/L (137-145); Total Protein 7.2 g/dL (6.3-8.2)
[2025-03-07 16:17] LABS: Add Urine Microscopic? NO; Appearance Urine Clear (Clear); Glucose Urine UA Negative (Negative); Leukocyte Esterase Ur Negative LEU/UL (Negative); Nitrate Urine Negative (Negative); Specific Grav Ur 1.015 (1.001-1.035)
[2025-03-07 16:21] LABS: Iron 27 ug/dL (49-181)
[2025-03-07 16:30] LABS: Percent Iron Saturation 6 % (20-50)
[2025-03-07 17:03] LABS: Ferritin 4.74 ng/mL (11.1-264)
[2025-03-07 17:31] LABS: Vitamin B12 319.0 pg/mL (239-931)
== END 2025-03-07 11:34 | disposition home or self-care (01) ==
PROVIDERS: Internal Medicine Hematology & Oncology; PCP Internal Medicine; Visit Provider Internal Medicine Hematology & Oncology
DX: D50.9 Iron deficiency anemia, unspecified (principal)
CPT/HCPCS: 36415; 80053; 81003; 82607; 82728; 82746; 83540; 83550; 85025; 85046; 85055